=== PATIENT | female | born 1940 | race Caucasian/White ===

== ENCOUNTER 2016-12-09 23:53 | Inpatient (IN) ==
[2016-12-10] MEDS ORDERED: 0.9 % Sodium Chloride 1,000 ML ONE ×2 (00:11→01:18)
[2016-12-10] MEDS ORDERED: methylPREDNISolone 125 MG/2 ML VIAL IVP ONE (00:21)
[2016-12-10 00:27] LABS: Hemoglobin 9.8 g/dL (11.5-15.4)
[2016-12-10 00:29] LABS: Hematocrit 35.4 % (35.3-44.9); Mean Corpuscular HGB Conc 27.7 g/dL (31.6-35.5); Mean Corpuscular Hemoglobin 24.7 pg (28.0-33.3); Mean Corpuscular Volume 89.4 fL (83.0-100.0); Platelet Count 616 K/mcL (140-400); Red Blood Count 3.96 M/mcL (3.82-4.97)
[2016-12-10] MEDS ORDERED: Propofol 500 MG/50 ML INFUS..BTL ONE (00:32)
[2016-12-10 00:33] LABS: INR 1.2
[2016-12-10 00:36] LABS: Activated Partial Thrombo Time 28.9 Seconds (26.0-36.0)
[2016-12-10 00:39] LABS: BUN/Creatinine Ratio 21 (6-26); Blood Urea Nitrogen 22 mg/dL (7-20); Calcium 9.6 mg/dL (8.6-10.8); Carbon Dioxide 34 mEq/L (19-29); Chloride 95 mEq/L (98-109); Glucose 349 mg/dL (70-99); Osmolality,Calculated 303 (280-300); Potassium 5.5 mEq/L (3.5-4.5); Sodium 138 mEq/L (136-145); eGFR For African Americans > 60 (> 60); eGFR For Non-African Americans 52 (> 60)
[2016-12-10 00:42] LABS: Creatine Kinase < 7 Units/L (29-168)
[2016-12-10 00:50] LABS: Lymphocytes # 0.9 K/mcL (0.6-4.6); Monocytes # 2.7 K/mcL (0.0-1.3); Neutrophils # 26.5 K/mcL (1.6-8.9)
[2016-12-10 00:51] LABS: Hypochromasia Present (Not Present); Large Platelets Present (Not Present); Platelet Estimate Increased (Normal)
[2016-12-10 00:52] LABS: Anisocytosis 1+ (Not Present)
[2016-12-10 00:53] LABS: Polychromasia 1+ (Not Present)
--- NOTE | 2016-12-10 00:57 | Emergency Department Note ---
Disposition Clinical Impression: Respiratory acidosis, Atrial fibrillation with RVR Acute respiratory failure Qualifiers: Respiratory failure complication: hypoxia and hypercapnia Qualified Code(s): J96.01 - Acute respiratory failure with hypoxia Leukocytosis Qualifiers: Leukocytosis type: unspecified Qualified Code(s): D72.829 - Elevated white blood cell count, unspecified Pulmonary edema Qualifiers: Chronicity: acute Qualified Code(s): J81.0 - Acute pulmonary edema RLL pneumonia Qualifiers: Pneumonia type: due to unspecified organism Qualified Code(s): J18.1 - Lobar pneumonia, unspecified organism Disposition: Admitted As Inpatient Condition: Critical Time of Disposition: 03:56 General Adult HPI - General Chief complaint: ED Shortness of Breath/Dyspnea Stated complaint: unresponsive, shortness of breath Time Seen by Provider: 12/10/16 00:19 Source: EMS Limitations: altered mental status, age Nursing Notes Reviewed: Yes Vital Signs Reviewed: Yes - History of Present Illness HPI Narrative: Patient is a 76-year-old female who presents to [facility] ED via EMS from [facility]. Apparently patient was heard yelling out and then they found her to be 84% on room air. When EMS arrived, she was on 3-1/2 L saturating in the 80s. When patient arrived, patient was minimally responsive. She was found to be in atrial fibrillation with RVR with a rate in the 190s. Patient's oxygenation was switched over to [id number] and her oxygen saturation improved into the mid 90s. The patient could not comply with following directions, the decision was made to intubate to protect her airway. Following intubation, with patient's heart rate around 200 and borderline blood pressure, decision was made to cardiovert patient instead of giving any medical therapy that would lower her blood pressure. Patient was cardioverted at 200 J which converted her to sinus tachycardia in the 120s with frequent PVCs. 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: 0 Treatments Prior to Arrival: none - Related Data Home Medications Medication Instructions Recorded Confirmed Albuterol Sulfate [Ventolin Hfa] 2 puff IH Q6H PRN 11/09/16 11/20/16 Furosemide [Lasix] 40 mg PO DAILY 11/09/16 11/20/16 Ipratropium/Albuterol Neb [Duoneb] 3 ml IH Q6HR 11/09/16 11/20/16 Metoprolol [Lopressor] 12.5 mg PO BID 11/09/16 11/20/16 Potassium Chloride [K-Tab ER] 20 meq PO DAILY 11/09/16 11/20/16 Oxygen 2.5 l .ROUTE AD 11/20/16 11/20/16 Allergies Allergy/AdvReac Type Severity Reaction Status Date / Time Sulfa (Sulfonamide AdvReac Rash Verified 11/09/16 08:40 Antibiotics) Limitations: ROS unobtainable due to patients medical condition Past Medical History - Past Medical History Source: unable to obtain Medical history: Reports: atrial fibrillation, hypertension, other Surgical history: Reports: appendectomy, , cataract, cholecystectomy, hysterectomy, ANDREINA/BSO Psychiatric history: Reports: depression - Social History Smoking Status: Former smoker Smokeless Tobacco Status: No Alcohol use: Reports: none Drug use: Reports: none Physical Exam - General Limitations: altered mental status, age General appearance: obtunded, in distress - Head Head exam: atraumatic, normocephalic, normal inspection - Eye Eye exam: Present: normal appearance, PERRL, EOMI - ENT ENT exam: normal exam, normal oropharynx, mucous membranes moist - Neck Neck exam: Present: normal inspection, full ROM, trachea midline - Chest Chest inspection: Present: normal inspection, symmetric chest wall rise - Respiratory Respiratory exam: Present: other (Diffuse rhonchi in all lung dooley) - Cardiovascular Cardiovascular exam: Present: tachycardia, irregular rhythm - Abdominal Exam Abdominal exam: Present: soft, Non-Tender. Absent: tenderness, distention, guarding, rebound, rigidity - Extremities Exam Extremities exam: Present: normal inspection, full ROM. Absent: tenderness, pedal edema - Expanded Neurological Exam Coma Scale Eye Opening: To Voice Coma Scale Motor Response: Localizes to Pain Coma Scale Verbal Response: None Coma Scale Total: 9 - Psychiatric Psychiatric exam: Present: normal affect, normal mood - Skin Skin exam: Present: warm, dry, intact, normal color Course Course Narrative: Patient seen and examined. Resuscitation of the patient as described above. Critical care workup was initiated. Will admit to ICU. - Reevaluation(s) Reevaluation #1: Lab work shows leukocytosis of over 30,000. Chest x-ray seems to show right lower lobe pneumonia. We will go ahead and start vancomycin and Zosyn. Laboratory also shows mild hyperkalemia with potassium 5.5. Patient's ABG showed a pH of 7.33 with PCO2 of 68 and bicarbonate of 35.9. Patient is likely a chronic CO2 retainer. Initial lactate on ABG 2.2. Patient did become hypotensive after she was placed on a propofol drip for sedation. This was discontinued and then Precedex was started instead. Time: 02:16 Reevaluation #2: Patient becoming more and more alert and able to communicate with writing. With adequate oxygenation, it seems that her mental status has improved markedly. Dr. Meza spoke with Dr. Wagner who has accepted patient to the ICU. Time: 04:00 Vital Signs Temperature 0 F L 12/09/16 23:55 Pulse Rate 190 12/09/16 23:55 Respiratory Rate 32 12/09/16 23:55 Blood Pressure 118/65 12/09/16 23:55 O2 Sat by Pulse Oximetry 87 12/09/16 23:55 Temperature 99.4 F 12/10/16 04:35 Pulse Rate 69 12/10/16 06:00 Respiratory Rate 16 12/10/16 06:00 Blood Pressure 94/41 12/10/16 06:00 O2 Sat by Pulse Oximetry 100 12/10/16 06:00 Oxygen Delivery Oxygen Delivery Ventilator Procedures - Intubation Time out performed: Yes sedative: Etomidate Mg Given: 20 paralytic: Succinylcholine Mg Given: 100 Laryngoscope: fiber optic video scope ET Tube Size: 7.5 ET Tube Uncuffed: No Tube Secured Depth (cm): 22 Tube Secured Location: lips Tube Placement Confirmation: visualized tube passing through cords, equal breath sounds bilaterally, no breath sounds over epigastrium Patient Tolerated Procedure: well, no complications Intubation Complications: none Medical Decision Making - Medical Records Medical records reviewed: Yes I reviewed the patient's medical records. - Lab Data Lab results reviewed: Yes I reviewed the patient's lab results. Result diagrams: 12/10/16 06:18 12/10/16 00:16 Lab Results 12/10/16 12/10/16 12/10/16 Range/Units 00:16 00:16 00:16 WBC 30.1 H* (4.3-11.1) K/mcL RBC 3.96 (3.82-4.97) M/mcL Hgb 9.8 L (11.5-15.4) g/dL Hct 35.4 (35.3-44.9) % MCV 89.4 (83.0-100.0) fL MCH 24.7 L (28.0-33.3) pg MCHC 27.7 L (31.6-35.5) g/dL RDW 17.0 H (11.5-14.5) % Plt Count 616 H (140-400) K/mcL MPV 10.0 (9.4-12.4) fL Seg Neutrophils % 86.0 % Band Neutrophils % 2.0 (0-4) % Lymphocytes % 3.0 % Monocytes % 9.0 % Neutrophils # 26.5 H (1.6-8.9) K/mcL Lymphocytes # 0.9 (0.6-4.6) K/mcL Monocytes # 2.7 H (0.0-1.3) K/mcL Platelet Estimate Increased H (Normal) Large Platelets Present A (Not Present) Polychromasia 1+ A (Not Present) Hypochromasia Present A (Not Present) Anisocytosis 1+ A (Not Present) PT 13.0 H (9.4-12.1) Seconds INR 1.2 APTT 28.9 (26.0-36.0) Seconds ABG pH (7.32-7.45) pH Units ABG pCO2 (35-45) mmHg ABG pO2 (85-104) mmHg ABG HCO3 (21-27) mEQ/L ABG Total CO2 (20-26) mEq/L ABG O2 Saturation (95-98) % ABG Base Excess (-2.0 to 3.0) mEq/L Blood Gas Modality Inspired O2 % Sodium 138 (136-145) mEq/L Potassium 5.5 H (3.5-4.5) mEq/L Chloride 95 L (98-109) mEq/L Carbon Dioxide 34 H (19-29) mEq/L BUN 22 H (7-20) mg/dL Creatinine 1.03 (0.57-1.11) mg/dL Est GFR ( Amer) > 60 (> 60) Est GFR (Non-Af Amer) 52 L (> 60) BUN/Creatinine Ratio 21 (6-26) Glucose 349 H (70-99) mg/dL Calculated Osmolality 303 H (280-300) Lactic Acid (0.5-2.2) mmol/L Calcium 9.6 (8.6-10.8) mg/dL Creatine Kinase < 7 L (29-168) Units/L Troponin I (0-0.03) ng/mL B-Natriuretic Peptide (0-100) pg/mL 12/10/16 12/10/16 12/10/16 Range/Units 00:16 00:16 00:16 WBC (4.3-11.1) K/mcL RBC (3.82-4.97) M/mcL Hgb (11.5-15.4) g/dL Hct (35.3-44.9) % MCV (83.0-100.0) fL MCH (28.0-33.3) pg MCHC (31.6-35.5) g/dL RDW (11.5-14.5) % Plt Count (140-400) K/mcL MPV (9.4-12.4) fL Seg Neutrophils % % Band Neutrophils % (0-4) % Lymphocytes % % Monocytes % % Neutrophils # (1.6-8.9) K/mcL Lymphocytes # (0.6-4.6) K/mcL Monocytes # (0.0-1.3) K/mcL Platelet Estimate (Normal) Large Platelets (Not Present) Polychromasia (Not Present) Hypochromasia (Not Present) Anisocytosis (Not Present) PT (9.4-12.1) Seconds INR APTT (26.0-36.0) Seconds ABG pH (7.32-7.45) pH Units ABG pCO2 (35-45) mmHg ABG pO2 (85-104) mmHg ABG HCO3 (21-27) mEQ/L ABG Total CO2 (20-26) mEq/L ABG O2 Saturation (95-98) % ABG Base Excess (-2.0 to 3.0) mEq/L Blood Gas Modality Inspired O2 % Sodium (136-145) mEq/L Potassium (3.5-4.5) mEq/L Chloride (98-109) mEq/L Carbon Dioxide (19-29) mEq/L BUN (7-20) mg/dL Creatinine (0.57-1.11) mg/dL Est GFR ( Amer) (> 60) Est GFR (Non-Af Amer) (> 60) BUN/Creatinine Ratio (6-26) Glucose (70-99) mg/dL Calculated Osmolality (280-300) Lactic Acid 2.6 H (0.5-2.2) mmol/L Calcium (8.6-10.8) mg/dL Creatine Kinase (29-168) Units/L Troponin I 0.01 (0-0.03) ng/mL B-Natriuretic Peptide 272 H (0-100) pg/mL 12/10/16 12/10/16 Range/Units 01:20 01:30 WBC (4.3-11.1) K/mcL RBC (3.82-4.97) M/mcL Hgb (11.5-15.4) g/dL Hct (35.3-44.9) % MCV (83.0-100.0) fL MCH (28.0-33.3) pg MCHC (31.6-35.5) g/dL RDW (11.5-14.5) % Plt Count (140-400) K/mcL MPV (9.4-12.4) fL Seg Neutrophils % % Band Neutrophils % (0-4) % Lymphocytes % % Monocytes % % Neutrophils # (1.6-8.9) K/mcL Lymphocytes # (0.6-4.6) K/mcL Monocytes # (0.0-1.3) K/mcL Platelet Estimate (Normal) Large Platelets (Not Present) Polychromasia (Not Present) Hypochromasia (Not Present) Anisocytosis (Not Present) PT (9.4-12.1) Seconds INR APTT (26.0-36.0) Seconds ABG pH 7.33 (7.32-7.45) pH Units ABG pCO2 68 H (35-45) mmHg ABG pO2 115 H (85-104) mmHg ABG HCO3 35.9 H (21-27) mEQ/L ABG Total CO2 38.0 H (20-26) mEq/L ABG O2 Saturation 98 (95-98) % ABG Base Excess 8.6 H (-2.0 to 3.0) mEq/L Blood Gas Modality ASSIST CONTROL Inspired O2 60 % Sodium (136-145) mEq/L Potassium (3.5-4.5) mEq/L Chloride (98-109) mEq/L Carbon Dioxide (19-29) mEq/L BUN (7-20) mg/dL Creatinine (0.57-1.11) mg/dL Est GFR ( Amer) (> 60) Est GFR (Non-Af Amer) (> 60) BUN/Creatinine Ratio (6-26) Glucose (70-99) mg/dL Calculated Osmolality (280-300) Lactic Acid 3.1 H (0.5-2.2) mmol/L Calcium (8.6-10.8) mg/dL Creatine Kinase (29-168) Units/L Troponin I (0-0.03) ng/mL B-Natriuretic Peptide (0-100) pg/mL - Radiology Data Radiology results reviewed: Yes I reviewed the patient's radiology results. Chest X-Ray 12/10/16 00:21 IMPRESSION: Low-lying endotracheal tube approximate 1 cm above the kenia. Recommend retracting approximately 3 cm. Bilateral interstitial opacities may indicate mild edema, pneumonitis or chronic changes. Hazy opacity projects over right lung base may represent lung consolidation or consistent with patient's history of soft tissue mass. D/ / Wilfred Ivory / Wilfred Ivory Interpreting Provider: Wilfred Ivory - EKG Data EKG #1 EKG attestation: Yes I reviewed and interpreted this EKG. EKG results narrative: EKG done at 0000 shows atrial fibrillation with RVR with a rate of [address] elevation noted. There are signs of diffuse ST depression though the baseline is wandering. Normal axis. Post cardioversion EKG done at 00:20 shows sinus tachycardia with a rate of [address] elevation or depression. There are frequent PVCs. Attestation Statement - Attestation Attestation: I, Bryson Meza, examined this patient and my medical decision-making was reviewed with the MACHINE COMPOSITOR/PA/Advanced Practice Nurse/Resident Physician. I agree with the documented findings, disposition and treatment plan as described except to the extent set forth below. 76-year-old female brought in by EMS to the emergency department in respiratory distress. Patient was apparently at the snf, called out distress and was found to have an O2 saturation in the 80s. EMS placed patient on Ventimask with breathing treatment which mildly improved her O2 saturation to 92%. Patient has a history of COPD and atrial fibrillation. Patient's heart rate on arrival was close to 200 and she was in A. fib with RVR. Patient unable to give a history regarding her case and presentation secondary to her respiratory distress. She is minimally alert, not protecting her airway. Lungs had crackles and rales in the bilateral lung bases. She had poor air movement during auscultation. Patient was intubated to protect her airway. Patient was not likely perfusing her brain well secondary to the A. fib with RVR. Patient was cardioverted secondary to her distress which reverted her rhythm to a sinus tachycardia. Patient is DNR CCA however she does not have orders prohibiting intubation. Patient never lost her pulse. Patient was started on propofol emergency department however this made her hypotensive. He should not was then transferred to [facility]. She continued to be hypotensive. Patient was given a central venous catheter in the right IJ as this was an emergent procedure secondary to hypotension. Patient admitted to the ICU gui developer for further care.
--- NOTE | 2016-12-10 03:38 | Internal Med History&Physical ---
<Sudhakar Watkins - Last Filed: 12/10/16 03:38> Date of Encounter: 12/10/16 Time of Encounter: 03:38 Internal Medicine - H&P: HPI History of present illness: Ms. Canela is a 76 year old female Past Med Surg Social Fam HX - Past Medical History Medical history: atrial fibrillation, hypertension, other Psychiatric history: depression - Past Surgical History Surgical History: appendectomy, , cataract, cholecystectomy, hysterectomy, ANDREINA/BSO - Social History Smoking Status: Former smoker Smokeless Tobacco Status: No Alcohol use: none Drug use: none - Family History Father Living Status: Hx Family Cardiac Disorders: Yes Hx Family Neuromuscular Disorders: Yes Internal Medicine - H&P: Meds Albuterol Sulfate [Ventolin Hfa] 2 puff IH Q6H PRN 11/09/16 [History] Furosemide [Lasix] 40 mg PO DAILY 11/09/16 [History] Ipratropium/Albuterol Neb [Duoneb] 3 ml IH Q6HR 11/09/16 [History] Metoprolol [Lopressor] 12.5 mg PO BID 11/09/16 [History] Potassium Chloride [K-Tab ER] 20 meq PO DAILY 11/09/16 [History] Oxygen 2.5 l .ROUTE AD 11/20/16 [History] Allergies Sulfa (Sulfonamide Antibiotics) Adverse Reaction (Verified 11/09/16 08:40) Rash All Systems PM: A 10-system review of systems was performed and is negative for pertinent findings except as documented above in the HPI. - Constitutional Vitals: Temp Pulse Resp BP Pulse Ox 0 F L 190 16 118/65 99 12/09/16 23:55 12/09/16 23:55 12/10/16 00:50 12/09/16 23:55 12/10/16 00:50 Internal Med - H&P Results - Labs CBC & Chem 7: 12/10/16 00:16 12/10/16 00:16 Labs: Short CBC 12/10/16 Range/Units 00:16 WBC 30.1 H* (4.3-11.1) K/mcL Hgb 9.8 L (11.5-15.4) g/dL Hct 35.4 (35.3-44.9) % Plt Count 616 H (140-400) K/mcL Neutrophils # 26.5 H (1.6-8.9) K/mcL BMP 12/10/16 00:16 Sodium 138 Potassium 5.5 H Chloride 95 L Carbon Dioxide 34 H BUN 22 H Creatinine 1.03 Glucose 349 H Calcium 9.6 Cardiac Enzymes 12/10/16 Range/Units 00:16 Troponin I 0.01 (0-0.03) ng/mL - Impressions ITS Impressions Chest X-Ray 12/10/16 00:21 IMPRESSION: Low-lying endotracheal tube approximate 1 cm above the kenia. Recommend retracting approximately 3 cm. Bilateral interstitial opacities may indicate mild edema, pneumonitis or chronic changes. Hazy opacity projects over right lung base may represent lung consolidation or consistent with patient's history of soft tissue mass. D/ / Wilfred Ivory / Wilfred Ivory Interpreting Provider: Wilfred Ivory <Keren Zhu - Last Filed: 12/10/16 04:28> Date of Encounter: 12/10/16 Internal Medicine - H&P: HPI History of present illness: Ms. Canela is a 76 year old female All Systems PM: A 10-system review of systems was performed and is negative for pertinent findings except as documented above in the HPI. - Constitutional Vitals: Temp Pulse Resp BP Pulse Ox 98.3 F 190 20 108/66 98 12/10/16 04:14 12/09/16 23:55 12/10/16 04:14 12/10/16 04:14 12/10/16 03:39 Internal Med - H&P Results - Labs CBC & Chem 7: 12/10/16 00:16 12/10/16 00:16 - Attending Attestation I examined this patient and my medical decision-making was reviewed with the Resident Physician. I agree with the documented findings, disposition and treatment plan as described except to the extent set forth below. Ms Dana Pérez is a 76 yo female who presents from [facility] unresponsive. Prior to presentation, she was reported to have cried out loud and subsequently became unresponsive. She was brought to the hospital where she was emergently intubated in the ED for airway protection. She became hypotensive after intubation and after propofol was used. This was discontinued and substituted with Precedex. On arrival she was also found to have in AFib RVR with rate in 180s and responded to cardioversion. She is DNRCCA on her paper work. Her SNF med list or medical hx did not accompany her SNF paperwork EKG reviewed by self with rate 182, AFib rvr CXR reviewed IMPRESSION: Low-lying endotracheal tube approximate 1 cm above the kenia. Recommend retracting approximately 3 cm. Bilateral interstitial opacities may indicate mild edema, pneumonitis or chronic changes. Hazy opacity projects over right lung base may represent lung consolidation or consistent with patient's history of soft tissue mass. ROS 14 point review of systems reviewed as best as possible given presentation. Pertinent positive or negative as per HPI or otherwise reviewed as negative General -sedated Heart - Sinus tachy. RRR. S1 and S2 present. No added HS/murmurs appreciated. No elevated JVD appreciated. No calf swellings/erythema Lung - Adequate air entry b/l, Coarse ventilator BS GI - Soft, non-tender. No hepatosplenomegaly/ascites. BS+ - No CVA/suprapubic tenderness or palpable bladder distension Skin - Intact. No rash/petechiae/ecchymosis. Warm extremities Acute respiratory failure - intubated,sedated on precedex - treat possible PNA, empiric therapy - duonebs - check TTE given reported hx of CHF. Hold diuretics for now given Hypotension - ICU consult and SBT as appropriate in the next day or so Hypotensive Shock - uncertain etiology, probably due to meds after intubation ? - continue empiric antibiotics - pressor to maintain MAP>65 - I/Os AFib rvr - s/p cardioversion PPI Lovenox ppx
[2016-12-10] MEDS ORDERED: Naloxone 0.4 MG/ML INJ IVP PRN (03:39)
--- NOTE | 2016-12-10 03:39 | Procedure Note ---
Date of procedure: 12/10/16 Pre-op diagnosis: hypotension Post-op diagnosis: same Procedure: Date: 12/10/16 Time: 03:00 Indication: hypotension Resident: Dr. Watkins Attending: Dr. Susana Smith time-out was completed verifying correct patient, procedure, site, positioning , and special equipment if applicable. The patient was placed in a dependent position appropriate for central line placement based on the vein to be cannulated. The patients right neck was prepped and draped in sterile fashion. 1% Lidocaine was used to anesthetize the surrounding skin area. A 16cm triple lumen catheter was introduced into the the internal jugular vein using the Seldinger technique and under ultrasound guidance. The catheter was threaded smoothly over the guide wire and appropriate blood return was obtained. Each lumen of the catheter was evacuated of air and flushed with sterile saline. The catheter was then sutured in place to the skin and a sterile dressing applied. Estimated Blood Loss: 3cc The patient tolerated the procedure well and there were no complications. Post procedure CXR showed good placement with no pneumothorax. Condition: stable Disposition: ICU
[2016-12-10] MEDS ORDERED: Ipratropium/Albuterol Neb 3 ML IH PRN (03:42)
[2016-12-10 03:56] LABS: ABG Base Excess 8.6 mEq/L (-2.0 to 3.0); ABG HCO3 35.9 mEQ/L (21-27); ABG Oxygen Saturation 98 % (95-98); ABG PCO2 68 mmHg (35-45); ABG PH 7.33 pH Units (7.32-7.45); ABG PO2 115 mmHg (85-104); Blood Gas FiO2 60 %
[2016-12-10] MEDS: Norepinephrine 4 MG in D5% in Water 250 ML IVC SCH ×2 (04:27→10:49)
[2016-12-10] MEDS ORDERED: Vancomycin 2,000 MG in D5% in Water 500 ML IVPB ONE (05:00)
[2016-12-10] MEDS: Dexmedetomidine HCl 400 MCG/100 ML MLS IVC SCH ×2 (05:27→08:01)
[2016-12-10] MEDS ORDERED: Dextrose Gel 15 GM PO PRN ×2 (05:28)
[2016-12-10] MEDS ORDERED: D5% in Water 1,000 ML IVC PRN (05:28)
[2016-12-10] MEDS: Azithromycin 500 MG in D5% in Water 250 ML IVPB SCH (05:32)
[2016-12-10] MEDS: Pantoprazole 40 MG VIAL IVPB SCH (05:32)
[2016-12-10] MEDS: *HR* Enoxaparin 40 MG/0.4 ML SYRINGE SQ SCH (05:32)
[2016-12-10] MEDS: 0.9 % Sodium Chloride 1,000 ML IVC SCH ×3 (05:33→23:23)
[2016-12-10] MEDS: Ipratropium/Albuterol Neb 3 ML IH SCH ×4 (06:16→21:29)
[2016-12-10] MEDS: Insulin LISPRO 300 UNITS/3 ML VIAL SQ SCH ×6 (06:22→23:19)
[2016-12-10 06:36] LABS: Hematocrit 29.3 % (35.3-44.9); Hemoglobin 8.2 g/dL (11.5-15.4); Mean Corpuscular Hemoglobin 24.6 pg (28.0-33.3); Mean Corpuscular Volume 87.7 fL (83.0-100.0); Mean Platelet Volume 10.2 fL (9.4-12.4); Platelet Count 503 K/mcL (140-400); Red Blood Count 3.34 M/mcL (3.82-4.97); Red Cell Distribution Width 16.8 % (11.5-14.5)
--- NOTE | 2016-12-10 06:50 | Pulmonology Consult Note ---
<VenkatAri brewster M - Last Filed: 12/10/16 12:41> Date of Encounter: 12/10/16 Medications and Allergies Albuterol Sulfate [Ventolin Hfa] 2 puff IH Q6H PRN 11/09/16 [History] Furosemide [Lasix] 40 mg PO DAILY 11/09/16 [History] Ipratropium/Albuterol Neb [Duoneb] 3 ml IH Q6HR 11/09/16 [History] Metoprolol [Lopressor] 12.5 mg PO BID 11/09/16 [History] Potassium Chloride [K-Tab ER] 20 meq PO DAILY 11/09/16 [History] Ferrous Sulfate [Iron] 325 mg PO DAILY 12/10/16 [History] Nystatin POWDER [Nystop] 1 appl TP DAILY 12/10/16 [History] Allergies Sulfa (Sulfonamide Antibiotics) Adverse Reaction (Verified 12/10/16 09:02) Rash All Systems: A 10-system review of systems was performed and is negative for pertinent findings except as documented above in the HPI. Physical Examination Vital Signs: Vital Signs, Last 4 Hours Temp Pulse Resp BP Pulse Ox 12/10/16 12:17 97.6 F 12/10/16 11:13 16 100 12/10/16 11:12 45 16 90/48 100 12/10/16 10:00 45 16 90/48 100 12/10/16 09:44 16 91/50 100 12/10/16 09:03 61 16 117/63 100 12/10/16 09:00 52 16 94/57 100 Ventilator Settings Ventilator Settings: Ventilator Settings, Last 8 Hours Ventilator Mode VC+ Ventilator Mode VC+ Ventilator Mode VC+ Ventilator Mode VC+ Ventilator Mode VC+ Ventilator Tidal Volume 450 Setting Ventilator Tidal Volume 450 Setting Ventilator Tidal Volume 450 Setting Ventilator Tidal Volume 450 Setting Ventilator Tidal Volume 450 Setting Ventilator Respiratory Rate 16 Setting Ventilator Respiratory Rate 16 Setting Ventilator Respiratory Rate 16 Setting Ventilator Respiratory Rate 16 Setting Ventilator Respiratory Rate 16 Setting Actual Respiratory Rate 16 Actual Respiratory Rate 16 Actual Respiratory Rate 16 Actual Respiratory Rate 16 Positive End Expiratory 5 Pressure Positive End Expiratory 5 Pressure Positive End Expiratory 5 Pressure Positive End Expiratory 5 Pressure Positive End Expiratory 5 Pressure Peak Inspiratory Airway 27 Pressure Peak Inspiratory Airway 30 Pressure Peak Inspiratory Airway 32 Pressure Peak Inspiratory Airway 32 Pressure Results - Laboratory Findings CBC and BMP: 12/10/16 06:18 12/10/16 00:16 ABG ABG pH 7.42 pH Units (7.32-7.45) 12/10/16 09:30 ABG pCO2 43 mmHg (35-45) 12/10/16 09:30 ABG pO2 72 mmHg (85-104) L 12/10/16 09:30 ABG O2 Saturation 95 % (95-98) 12/10/16 09:30 PT/INR, D-dimer PT 13.0 Seconds (9.4-12.1) H 12/10/16 00:16 Abnormal lab findings: Abnormal lab results WBC 35.4 K/mcL (4.3-11.1) H* 12/10/16 06:18 RBC 3.34 M/mcL (3.82-4.97) L 12/10/16 06:18 Hgb 8.2 g/dL (11.5-15.4) L D 12/10/16 06:18 Hct 29.3 % (35.3-44.9) L 12/10/16 06:18 MCH 24.6 pg (28.0-33.3) L 12/10/16 06:18 MCHC 28.0 g/dL (31.6-35.5) L 12/10/16 06:18 RDW 16.8 % (11.5-14.5) H 12/10/16 06:18 Plt Count 503 K/mcL (140-400) H 12/10/16 06:18 Neutrophils # 26.5 K/mcL (1.6-8.9) H 12/10/16 00:16 Monocytes # 2.7 K/mcL (0.0-1.3) H 12/10/16 00:16 Platelet Estimate Increased (Normal) H 12/10/16 00:16 Large Platelets Present (Not Present) A 12/10/16 00:16 Polychromasia 1+ (Not Present) A 12/10/16 00:16 Hypochromasia Present (Not Present) A 12/10/16 00:16 Anisocytosis 1+ (Not Present) A 12/10/16 00:16 PT 13.0 Seconds (9.4-12.1) H 12/10/16 00:16 ABG pO2 72 mmHg (85-104) L 12/10/16 09:30 ABG HCO3 27.9 mEQ/L (21-27) H 12/10/16 09:30 ABG Total CO2 29.2 mEq/L (20-26) H 12/10/16 09:30 ABG Base Excess 3.1 mEq/L (-2.0 to 3.0) H 12/10/16 09:30 Potassium 5.5 mEq/L (3.5-4.5) H 12/10/16 00:16 Chloride 95 mEq/L (98-109) L 12/10/16 00:16 Carbon Dioxide 34 mEq/L (19-29) H 12/10/16 00:16 BUN 22 mg/dL (7-20) H 12/10/16 00:16 Est GFR (Non-Af Amer) 52 (> 60) L 12/10/16 00:16 Glucose 349 mg/dL (70-99) H 12/10/16 00:16 POC Glucose 249 (58-89) H 12/10/16 04:33 Calculated Osmolality 303 (280-300) H 12/10/16 00:16 Creatine Kinase < 7 Units/L (29-168) L 12/10/16 00:16 B-Natriuretic Peptide 272 pg/mL (0-100) H 12/10/16 00:16 Urine Clarity Turbid (Clear) A 12/10/16 09:23 Ur Specific [place] 1.027 (1.010-1.025) H 12/10/16 09:23 Urine Protein 100 mg/dL (Neg-Trace) H 12/10/16 09:23 Urine Ketones Trace mg/dL (Negative) H 12/10/16 09:23 Urine Blood Small (Negative) H 12/10/16 09:23 Urine Bilirubin Small (Negative) H 12/10/16 09:23 Ur Leukocyte Esterase Large (Negative) H 12/10/16 09:23 Urine Microscopic RBC 5-15 per hpf (0-3) H 12/10/16 09:23 Urine Microscopic WBC 50-100 per hpf (0-3) H 12/10/16 09:23 Ur Squamous Epith Cells Moderate per lpf (None-Few) H 12/10/16 09:23 Urine Bacteria Many per hpf (None-Few) H 12/10/16 09:23 Ur Culture Indicated? YES (NO) A 12/10/16 09:23 - Microbiology Findings Microbiology Findings: Microbiology, Last 48 Hours 12/10/16 09:30 Sputum Culture - Preliminary Sputum - Clinical Findings Intake & Output: Intake & Output 12/09/16 12/10/16 12/10/16 23:59 07:59 15:59 Intake Total 330 / 2330 3040 / 3040 Output Total 0 / 0 Balance 330 / 2330 3025 / 3025 Weight 89.1 kg 91.6 kg Consult Discharge Plan - Plan Referrals: NONE,PCP [Primary Care Provider] - - Attending Attestation I examined this patient and my medical decision-making was reviewed with the Resident Physician. I agree with the documented findings, disposition and treatment plan as described except to the extent set forth below. Patient seen and examined. Labs, radiology, chart personally reviewed. Agree with resident's history and physical, assessment, plan with following comments: [facility] Patient is not follows commands, patient is on sedation Precedex and due to the heart rate and bradycardia we will stop it and change it to fentanyl for pain control and vent synchrony. Pulmonary: Acceptable oxygenation and ventilation. Patient was intubated for mental status change and being unresponsive. Vent mode was changed to VC plus and lowered FiO2. Whenever patient is off vasopressor then we will do spontaneous breathing trial and possible extubation. Patient has evidence of pneumonia which is hospital-acquired most likely and she is covered with broad- spectrum antibiotics. Reviewed previous CT chest which showed evidence of parenchymal and pleural fluid abnormalities. Cardiovascular: Unstable. Patient is on vasopressor most likely septic shock. GI: Nutrition per dietary and GI prophylaxis per routine Heme: DVT prophylaxis per routine ID: Continue antibiotics and plan to de-escalation and follow-up on blood culture. She has septic shock and her skin cold to touch with poor capillary perfusion. Follow-up on the lactic acid level. Renal; urine out put and renal funtion reviewed Endorcine: blood glucose is monitored Lines: all lines checked and no evidence of infections Skin: skin care to prevent pressure ulcers per nursing routine care. Patient has a tumor in the back and wound care as well as surgery is being consulted. Overall prognosis as he relates poor and for that reason palliative care was consulted. When family is available we will update. I spent 40 min of Critical Care time with this patient. It involved decision making of high complexity to assess, manipulate, and support vital organ system failure and/or to prevent further life threatening deterioration of the patient' s condition. The time involved in the performance of separately reportable procedures was not counted toward critical care time. <Aleksandr Kumar - Last Filed: 12/10/16 12:51> Date of Encounter: 12/10/16 Time of Encounter: 06:49 Assessment and Plan (1) Respiratory failure with hypoxia and hypercapnia Current Visit: Yes Status: Acute This patient is currently intubated and under sedation with fentanyl. We will do a repeat arterial blood gas and see if this is improved. I suspect that some of this respiratory failure is due to a pneumonia of her right lower lobe. Qualifiers: Chronicity: acute Qualified Code(s): J96.01 - Acute respiratory failure with hypoxia; J96.02 - Acute respiratory failure with hypercapnia (2) RLL pneumonia Current Visit: Yes Status: Acute Patient has what appears to be a right lower lobe pneumonia versus mass on chest x-ray. She does have a leukocytosis of 35.4, severe hypotension that is managed on Levophed. At this point, we will treat her for a hospital-acquired pneumonia. She was started on azithromycin, cefepime, and vancomycin in the emergency department. For anaerobic coverage, we discontinued cefepime and added Zosyn. We have obtained sputum cultures for Gram stain. Qualifiers: Pneumonia type: due to unspecified organism Qualified Code(s): J18.1 - Lobar pneumonia, unspecified organism (3) Atrial fibrillation with RVR Current Visit: Yes Status: Acute Patient was synchronized cardioverted in the emergency department last night. There is no known history of atrial fibrillation in this patient. Patient is currently bradycardic but in sinus rhythm. I suspect that the new bradycardia could be due to depressive. We are discontinuing the present accident starting off and on for sedation. We will continue monitoring her heart rate. She is not on anything for rate control. (4) Leukocytosis Current Visit: Yes Status: Acute This patient is a white count of 35.4. We have obtained blood cultures, Qualifiers: Leukocytosis type: unspecified Qualified Code(s): D72.829 - Elevated white blood cell count, unspecified (5) Malignant melanoma of lower back Current Visit: Yes Status: Acute Patient was recently diagnosed with malignant melanoma of the lower back. Dr. Meehan is the general surgeon following this patient. It was decided that radiation oncology would treat this rather than surgery. However, this mass is draining, and his malodorous. I consulted both Dr. Meehan the general surgeon as well as radiation oncology for management of this. 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 Radiation oncology was consulted today. (7) DVT prophylaxis Current Visit: Yes Status: Acute Enoxaparin 40 mg daily History of Present Illness Consult date: 12/10/16 Requesting physician: Bryson Meza Reason for consult: hypoxemia Chief complaint: Acute hypoxic respiratory failure, pneumonia, on pressors History of present illness: This is a 76-year-old female with a previous medical history of melanoma that is being worked up by oncology. She presented to the emergency department yesterday after having an episode of shortness of breath in the senior living facility. She was heard saying "somebody help me". Her pulse ox was at 84% on room air on the arrival by EMS. She was placed on 3-1/2 L of oxygen on arrival to the emergency department and she was satting in the mid 90s. At that time, the patient was very uncooperative and in order to protect her airway, she was intubated. She was also hypotensive, chest x-ray showed a possible right lower lobe pneumonia. She was placed on azithromycin, cefepime, and vancomycin at that time. She was also given 2 L of normal saline. She was admitted to the ICU for the management after her episode of acute hypoxemic hypercapnic respiratory failure as well as management of her pressors as she is on Levophed to maintain a map greater than 65, and pneumonia. Past Med Surg Social Fam HX - Past Medical History Medical history: atrial fibrillation, hypertension, other Psychiatric history: depression - Past Surgical History Surgical History: appendectomy, , cataract, cholecystectomy, hysterectomy, ANDREINA/BSO - Social History Smoking Status: Former smoker Smokeless Tobacco Status: No Alcohol use: none Drug use: none - Family History Father Living Status: Hx Family Cardiac Disorders: Yes Hx Family Neuromuscular Disorders: Yes All Systems: A 10-system review of systems was performed and is negative for pertinent findings except as documented above in the HPI. Physical Examination Vital Signs: Vital Signs, Last 4 Hours Temp Pulse Resp BP Pulse Ox 12/10/16 06:00 69 16 94/41 100 12/10/16 05:00 73 17 99/74 100 12/10/16 04:35 99.4 F 82 16 111/81 100 12/10/16 04:30 100 12/10/16 04:14 98.3 F 20 108/66 12/10/16 04:00 68 20 107/65 99 General appearance: other (76-year-old female On the ventilator, unresponsive.) Eyes: nonicteric ENT: oropharynx moist Neck: supple Effort: other (Assist-control ventilator) Inspection: normal Auscultation: right: diminished breath sounds Cardiovascular: other (Telemetry: Sinus bradycardia with a rate of 48) Gastrointestinal: normoactive bowel sounds, soft, non-tender Integumentary: other (There is a fungating, serosanguineous draining, malodorous mass that is approximately 5 x 5 cm on the lower thoracic spine. There is no surrounding cellulitis.) Extremities: no cyanosis, no edema, pulses normal, cool pupils equal and round, unable to assess due to mental status other (Unable to access) Ventilator Settings Ventilator Settings: Ventilator Settings, Last 8 Hours Ventilator Mode A/C Ventilator Mode A/C Ventilator Tidal Volume 450 Setting Ventilator Tidal Volume 450 Setting Ventilator Respiratory Rate 16 Setting Ventilator Respiratory Rate 16 Setting Actual Respiratory Rate 16 Actual Respiratory Rate 16 Positive End Expiratory 5 Pressure Positive End Expiratory 5 Pressure Peak Inspiratory Airway 32 Pressure Results - Laboratory Findings CBC and BMP: 12/10/16 06:18 12/10/16 00:16 ABG ABG pH 7.33 pH Units (7.32-7.45) 12/10/16 01:20 ABG pCO2 68 mmHg (35-45) H 12/10/16 01:20 ABG pO2 115 mmHg (85-104) H 12/10/16 01:20 ABG O2 Saturation 98 % (95-98) 12/10/16 01:20 PT/INR, D-dimer PT 13.0 Seconds (9.4-12.1) H 12/10/16 00:16 Abnormal lab findings: Abnormal lab results WBC 30.1 K/mcL (4.3-11.1) H* 12/10/16 00:16 Hgb 9.8 g/dL (11.5-15.4) L 12/10/16 00:16 MCH 24.7 pg (28.0-33.3) L 12/10/16 00:16 MCHC 27.7 g/dL (31.6-35.5) L 12/10/16 00:16 RDW 17.0 % (11.5-14.5) H 12/10/16 00:16 Plt Count 616 K/mcL (140-400) H 12/10/16 00:16 Neutrophils # 26.5 K/mcL (1.6-8.9) H 12/10/16 00:16 Monocytes # 2.7 K/mcL (0.0-1.3) H 12/10/16 00:16 Platelet Estimate Increased (Normal) H 12/10/16 00:16 Large Platelets Present (Not Present) A 12/10/16 00:16 Polychromasia 1+ (Not Present) A 12/10/16 00:16 Hypochromasia Present (Not Present) A 12/10/16 00:16 Anisocytosis 1+ (Not Present) A 12/10/16 00:16 PT 13.0 Seconds (9.4-12.1) H 12/10/16 00:16 ABG pCO2 68 mmHg (35-45) H 12/10/16 01:20 ABG pO2 115 mmHg (85-104) H 12/10/16 01:20 ABG HCO3 35.9 mEQ/L (21-27) H 12/10/16 01:20 ABG Total CO2 38.0 mEq/L (20-26) H 12/10/16 01:20 ABG Base Excess 8.6 mEq/L (-2.0 to 3.0) H 12/10/16 01:20 Potassium 5.5 mEq/L (3.5-4.5) H 12/10/16 00:16 Chloride 95 mEq/L (98-109) L 12/10/16 00:16 Carbon Dioxide 34 mEq/L (19-29) H 12/10/16 00:16 BUN 22 mg/dL (7-20) H 12/10/16 00:16 Est GFR (Non-Af Amer) 52 (> 60) L 12/10/16 00:16 Glucose 349 mg/dL (70-99) H 12/10/16 00:16 POC Glucose 249 (58-89) H 12/10/16 04:33 Calculated Osmolality 303 (280-300) H 12/10/16 00:16 Creatine Kinase < 7 Units/L (29-168) L 12/10/16 00:16 B-Natriuretic Peptide 272 pg/mL (0-100) H 12/10/16 00:16 - Diagnostic Findings Chest x-ray: report reviewed, image reviewed CT scan - chest: report reviewed, image reviewed - Clinical Findings Intake & Output: Intake & Output 12/09/16 12/09/16 12/10/16 15:59 23:59 07:59 Intake Total 2079 Output Total 0 / 0 Balance 2079 Weight 89.1 kg
[2016-12-10] MEDS ORDERED: 0.9 % Sodium Chloride 1,000 ML IVC ONE ×4 (07:49→14:40)
[2016-12-10 09:32] LABS: Bilirubin,Urine Small (Negative); Blood,Urine Small (Negative); Clarity,Urine Turbid (Clear); Color,Urine Dark Yellow (Yellow); Glucose,Urine (UA) Normal (Normal); Ketones,Urine Trace mg/dL (Negative); Leukocyte Esterase,Urine Large (Negative); Nitrite,Urine Negative (Negative); PH,Urine 5.5 pH Units (5.0-8.0); Protein,Urine 100 mg/dL (Neg-Trace); Specific Gravity,Urine 1.027 (1.010-1.025); Urobilinogen,Urine Normal (Normal)
[2016-12-10 09:34] LABS: Bacteria,Urine Many per hpf (None-Few); Hyaline Casts,Urine None Seen per lpf (None-Few); Squamous Epithelial Cell,Urine Moderate per lpf (None-Few); WBC,Urine 50-100 per hpf (0-3)
[2016-12-10 09:38] LABS: ABG Base Excess 3.1 mEq/L (-2.0 to 3.0); ABG HCO3 27.9 mEQ/L (21-27); ABG Oxygen Saturation 95 % (95-98); ABG PCO2 43 mmHg (35-45); ABG PH 7.42 pH Units (7.32-7.45); ABG PO2 72 mmHg (85-104); ABG TCO2 29.2 mEq/L (20-26)
[2016-12-10 09:39] LABS: Blood Gas FiO2 35 %
[2016-12-10] MEDS: Chlorhexidine Rinse 15 ML MOUTHWASH MM SCH ×2 (09:39→19:49)
[2016-12-10] MEDS: Piperacillin/Tazobactam 3.375 GM in D5% in Water (Mini-Bag+) 100 ML IVPB SCH ×3 (09:40→23:22)
[2016-12-10] MEDS ORDERED: *HR* FentaNYL (PF) 100 MCG/2 ML VIAL IVP PRN (10:47)
[2016-12-10] MEDS ORDERED: Acetaminophen 325 MG TABLET PO PRN (10:49)
[2016-12-10] MEDS ORDERED: Cefepime HCl 2,000 MG in D5% in Water (Mini-Bag+) 100 ML IVPB SCH (11:00)
[2016-12-10] MEDS ORDERED: FentaNYL (PF) 1,000 MCG in 0.9 % Sodium Chloride 80 ML IVC SCH (11:30)
--- NOTE | 2016-12-10 11:49 | General Surgery Consult Note ---
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 Current Visit: No Status: Acute See plan of care above Qualifiers: Laterality: unspecified laterality Qualified Code(s): C78.00 - Secondary malignant neoplasm of unspecified lung (3) 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 Current Visit: No Status: Acute See plan of care above (4) Respiratory failure with hypoxia and hypercapnia Current Visit: Yes Status: Acute Managed by critical care Qualifiers: Chronicity: acute Qualified Code(s): J96.01 - Acute respiratory failure with hypoxia; J96.02 - Acute respiratory failure with hypercapnia (5) RLL pneumonia Current Visit: Yes Status: Acute Patient producing purulent sputum On vanco, zosyn, azithromycin Qualifiers: Pneumonia type: due to unspecified organism Qualified Code(s): J18.1 - Lobar pneumonia, unspecified organism (6) Leukocytosis Current Visit: Yes Status: Acute Most likely source is pneumonia Also received steroids Qualifiers: Leukocytosis type: unspecified Qualified Code(s): D72.829 - Elevated white blood cell count, unspecified History of Present Illness Consult date: 12/10/16 Reason for consult: other (fungating melanoma) History of present illness: Patient is intubated so history is obtained from chart review. Dana Canela is a 76 yo female with known melanoma who has been seen in the wound care clinic previously with a large fungating melanoma on her medial back. She presented to [facility] via EMS from a SNF. She was heard yelling for help , and pulse ox was 84% on room air. She was minimally responsive by the time EMS arrived, with RVR rate approaching 200. She was intubated on arrival to [facility] and cardioverted to sinus tachycardia. Regarding the melanoma, it was present for years and the patient had denied symptoms from it. Diagnosis of melanoma was confirmed during her first visit to wound care by incisional biopsy performed by Dr. Oconnor on 11/09/16. She has since been seen by oncology (Dr. Tim). Across numerous studies, lesions concerning for metastasis have been seen in the liver, lungs, and adrenal glands. Biopsy of a liver lesion on 11/29/16 confirmed metastatic melanoma. The patient was discussed at tumor board, where it was determined there was no role for surgery in this case. There was discussion of offering radiation therapy if the mass began to cause her problems. The patient is DNRCC-Arrest. Past Med Surg Social Fam HX - Past Medical History Medical history: atrial fibrillation, hypertension, other Psychiatric history: depression - Past Surgical History Surgical History: appendectomy, , cataract, cholecystectomy, hysterectomy, ANDREINA/BSO - Social History Smoking Status: Former smoker Smokeless Tobacco Status: No Alcohol use: none Drug use: none - Family History Father Living Status: Hx Family Cardiac Disorders: Yes Hx Family Neuromuscular Disorders: Yes Medications and Allergies Albuterol Sulfate [Ventolin Hfa] 2 puff IH Q6H PRN 11/09/16 [History] Furosemide [Lasix] 40 mg PO DAILY 11/09/16 [History] Ipratropium/Albuterol Neb [Duoneb] 3 ml IH Q6HR 11/09/16 [History] Metoprolol [Lopressor] 12.5 mg PO BID 11/09/16 [History] Potassium Chloride [K-Tab ER] 20 meq PO DAILY 11/09/16 [History] Ferrous Sulfate [Iron] 325 mg PO DAILY 12/10/16 [History] Nystatin POWDER [Nystop] 1 appl TP DAILY 12/10/16 [History] Allergies Sulfa (Sulfonamide Antibiotics) Adverse Reaction (Verified 12/10/16 09:02) Rash Review of Systems ROS unobtainable: due to endotracheal tube All systems PM: A 10-system review of systems was performed and is negative for pertinent findings except as documented above in the HPI. General Surgery Exam Initial Vital Signs Temp Pulse Resp BP Pulse Ox 0 F L 190 32 118/65 87 12/09/16 23:55 12/09/16 23:55 12/09/16 23:55 12/09/16 23:55 12/09/16 23:55 - General physical appearance well developed, well nourished, no distress, chronically ill, other (ET tube in place) - Eyes normal ocular movement - ENT atraumatic, normocephalic - Neck trachea midline - Respiratory normal expansion - Cardiovascular Cardiovascular exam: Present: RRR - Abdomen Abdomen general surgery: Present: bowel sounds present, soft, non tender - Integumentary Integumentary general surgery: Present: other (There is a 7-8 cm diameter fungating mass on her lower right back. It is draining serosanguinous liquid which is foul smelling.) Exam Initial Vital Signs Temp Pulse Resp BP Pulse Ox 0 F L 190 32 118/65 87 12/09/16 23:55 12/09/16 23:55 12/09/16 23:55 12/09/16 23:55 12/09/16 23:55 Results - Labs 12/10/16 06:18 12/10/16 00:16 Abnormal lab results WBC 35.4 K/mcL (4.3-11.1) H* 12/10/16 06:18 RBC 3.34 M/mcL (3.82-4.97) L 12/10/16 06:18 Hgb 8.2 g/dL (11.5-15.4) L D 12/10/16 06:18 Hct 29.3 % (35.3-44.9) L 12/10/16 06:18 MCH 24.6 pg (28.0-33.3) L 12/10/16 06:18 MCHC 28.0 g/dL (31.6-35.5) L 12/10/16 06:18 RDW 16.8 % (11.5-14.5) H 12/10/16 06:18 Plt Count 503 K/mcL (140-400) H 12/10/16 06:18 Neutrophils # 26.5 K/mcL (1.6-8.9) H 12/10/16 00:16 Monocytes # 2.7 K/mcL (0.0-1.3) H 12/10/16 00:16 Platelet Estimate Increased (Normal) H 12/10/16 00:16 Large Platelets Present (Not Present) A 12/10/16 00:16 Polychromasia 1+ (Not Present) A 12/10/16 00:16 Hypochromasia Present (Not Present) A 12/10/16 00:16 Anisocytosis 1+ (Not Present) A 12/10/16 00:16 PT 13.0 Seconds (9.4-12.1) H 12/10/16 00:16 ABG pO2 72 mmHg (85-104) L 12/10/16 09:30 ABG HCO3 27.9 mEQ/L (21-27) H 12/10/16 09:30 ABG Total CO2 29.2 mEq/L (20-26) H 12/10/16 09:30 ABG Base Excess 3.1 mEq/L (-2.0 to 3.0) H 12/10/16 09:30 Potassium 5.5 mEq/L (3.5-4.5) H 12/10/16 00:16 Chloride 95 mEq/L (98-109) L 12/10/16 00:16 Carbon Dioxide 34 mEq/L (19-29) H 12/10/16 00:16 BUN 22 mg/dL (7-20) H 12/10/16 00:16 Est GFR (Non-Af Amer) 52 (> 60) L 12/10/16 00:16 Glucose 349 mg/dL (70-99) H 12/10/16 00:16 POC Glucose 249 (58-89) H 12/10/16 04:33 Calculated Osmolality 303 (280-300) H 12/10/16 00:16 Creatine Kinase < 7 Units/L (29-168) L 12/10/16 00:16 B-Natriuretic Peptide 272 pg/mL (0-100) H 12/10/16 00:16 Urine Clarity Turbid (Clear) A 12/10/16 09:23 Ur Specific [place] 1.027 (1.010-1.025) H 12/10/16 09:23 Urine Protein 100 mg/dL (Neg-Trace) H 12/10/16 09:23 Urine Ketones Trace mg/dL (Negative) H 12/10/16 09:23 Urine Blood Small (Negative) H 12/10/16 09:23 Urine Bilirubin Small (Negative) H 12/10/16 09:23 Ur Leukocyte Esterase Large (Negative) H 12/10/16 09:23 Urine Microscopic RBC 5-15 per hpf (0-3) H 12/10/16 09:23 Urine Microscopic WBC 50-100 per hpf (0-3) H 12/10/16 09:23 Ur Squamous Epith Cells Moderate per lpf (None-Few) H 12/10/16 09:23 Urine Bacteria Many per hpf (None-Few) H 12/10/16 09:23 Ur Culture Indicated? YES (NO) A 12/10/16 09:23 All other labs normal. - Imaging Chest x-ray: report reviewed (IMPRESSION: Low-lying endotracheal tube approximate 1 cm above the kenia. Recommend retracting approximately 3 cm. Bilateral interstitial opacities may indicate mild edema, pneumonitis or chronic changes. Hazy opacity projects over right lung base may represent lung consolidation or consistent with patient's history of soft tissue mass. D/ / Wilfred Ivory / Wilfred Ivory Interpreting Provider: Wilfred Ivory ), image reviewed CT scan - abdomen: report reviewed, image reviewed CT scan - chest: report reviewed, image reviewed (IMPRESSION: 1. Large skin and subcutaneous mass involving the right side of the back. Skin malignancy is not excluded and biopsy is recommended 2. Numerous pulmonary nodules. Some of these appear calcified compatible with granulomas. However, others are not calcified including the largest nodule which is in the lingula. Pulmonary metastases would have to be considered if the patient has malignancy. In addition, there are low-attenuation lesions in the liver and bilateral adrenal masses which are also concerning for metastatic disease in the setting of malignancy. Dedicated liver and adrenal multiphasic postcontrast imaging may be helpful to better characterize the lesions. PET CT may be helpful if malignancy is confirmed 3. Small bilateral pleural effusions with bibasilar atelectasis. Extensive parenchymal calcifications within the atelectatic lung may indicate chronic atelectasis 4. Colonic diverticulosis 5. Status post cholecystectomy and hysterectomy D/ / Geoffrey Blake MD / Geoffrey Blake MD Interpreting Provider: Geoffrey Blake MD ) CT scan - pelvis: report reviewed, image reviewed Additional studies: CT Biopsy Liver IMPRESSION: Successful CT guided core biopsy liver. D/ / David Monroe MD / David Monroe MD Interpreting Provider: David Monroe MD R #: [id number] MR/MR head/brain wo/w con IMPRESSION: 1. No acute intracranial abnormality or evidence of intracranial metastatic disease. 2. Bilateral middle ear and mastoid effusions. D/ / Ranulfo Andrew MD / Ranulfo Andrew MD Interpreting Provider: Ranulfo Andrew MD Consult Discharge Plan - Plan Referrals: NONE,PCP [Primary Care Provider] - <Lizzeth Oconnor - Last Filed: 12/11/16 07:35> Date of Encounter: 12/11/16 Time of Encounter: 17:45 Assessment and Plan (1) Acute respiratory failure Current Visit: Yes Status: Acute patient still on vent, management per pulmonary CCM Qualifiers: Respiratory failure complication: hypoxia and hypercapnia Qualified Code(s) : J96.01 - Acute respiratory failure with hypoxia; J96.02 - Acute respiratory failure with hypercapnia (2) Atrial fibrillation with RVR Current Visit: Yes Status: Acute (3) DVT prophylaxis Current Visit: Yes Status: Acute heparin sq (4) Leukocytosis Current Visit: Yes Status: Acute Qualifiers: Leukocytosis type: unspecified Qualified Code(s): D72.829 - Elevated white blood cell count, unspecified (5) 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 Current Visit: No Status: Chronic (6) 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 Current Visit: No Status: Chronic Qualifiers: Laterality: unspecified laterality Qualified Code(s): C78.00 - Secondary malignant neoplasm of unspecified lung (7) Melanoma of back Current Visit: Yes Status: Chronic patient with known back melanoma, currently foul smelling and draining recommend: clean area with betadine swabs or betadine on 4x4 gauze, cover with betadine adaptic, 4x4 gauze, ABD pads and secure with tape (dont overdue it ,pt currently not moving on own) change BID and prn soilage consult radiation oncology to see if they can dry up back melanoma with radiation once patient improves History of Present Illness History of present illness: Patient is intubated and on a vent and all info obtained from chart, nursing, physicians. Patient is known to me from wound care. She presented recently with a back mass that was biopsied and shown to be melanoma. CT scans revealed what appeared to be metastatic disease to her liver and lungs. MRI without metastatic disease to her brain. Patient is currently in icu with respiratory failure and sepsis from presumed pneumonia and uti. The melanoma on her back is reported to be draining and foul smelling per nursing. Past Med Surg Social Fam HX - Past Medical History Medical history: atrial fibrillation, cancer (metastatic melanoma), hypertension Review of Systems ROS unobtainable: due to endotracheal tube All systems PM: A 10-system review of systems was performed and is negative for pertinent findings except as documented above in the HPI. General Surgery Exam Initial Vital Signs Temp Pulse Resp BP Pulse Ox 0 F L 190 32 118/65 87 12/09/16 23:55 12/09/16 23:55 12/09/16 23:55 12/09/16 23:55 12/09/16 23:55 - General physical appearance well nourished, no distress - Eyes pinpoint pupil - ENT dry mucosa, atraumatic, normocephalic, Other (ETT in place) - Integumentary Integumentary general surgery: Present: other - Neurologic Present: other (sedated on vent) - Musculoskeletal Present: other (sedated on vent) Exam Initial Vital Signs Temp Pulse Resp BP Pulse Ox 0 F L 190 32 118/65 87 12/09/16 23:55 12/09/16 23:55 12/09/16 23:55 12/09/16 23:55 12/09/16 23:55 Results - Labs 12/11/16 05:20 12/11/16 05:20 Abnormal lab results WBC 23.6 K/mcL (4.3-11.1) H 12/11/16 05:20 RBC 3.31 M/mcL (3.82-4.97) L 12/11/16 05:20 Hgb 8.0 g/dL (11.5-15.4) L 12/11/16 05:20 Hct 28.2 % (35.3-44.9) L 12/11/16 05:20 MCH 24.2 pg (28.0-33.3) L 12/11/16 05:20 MCHC 28.4 g/dL (31.6-35.5) L 12/11/16 05:20 RDW 16.7 % (11.5-14.5) H 12/11/16 05:20 Plt Count 428 K/mcL (140-400) H 12/11/16 05:20 Neutrophils # 21.8 K/mcL (1.6-8.9) H 12/11/16 05:20 Platelet Estimate Increased (Normal) H 12/11/16 05:20 Large Platelets Present (Not Present) A 12/11/16 05:20 Polychromasia 1+ (Not Present) A 12/10/16 00:16 Hypochromasia Present (Not Present) A 12/11/16 05:20 Anisocytosis 1+ (Not Present) A 12/11/16 05:20 Macrocytosis Present (Not Present) A 12/11/16 05:20 PT 13.0 Seconds (9.4-12.1) H 12/10/16 00:16 ABG pO2 59 mmHg (85-104) L 12/11/16 04:50 ABG Total CO2 26.7 mEq/L (20-26) H 12/11/16 04:50 ABG O2 Saturation 90 % (95-98) L 12/11/16 04:50 Sodium 134 mEq/L (136-145) L 12/11/16 05:20 BUN 25 mg/dL (7-20) H 12/11/16 05:20 BUN/Creatinine Ratio 28 (6-26) H 12/11/16 05:20 Glucose 313 mg/dL (70-99) H 12/11/16 05:20 POC Glucose 320 (58-89) H 12/11/16 04:12 Calcium 8.2 mg/dL (8.6-10.8) L 12/11/16 05:20 Alkaline Phosphatase 165 Units/L (38-126) H 12/11/16 05:20 Creatine Kinase < 7 Units/L (29-168) L 12/10/16 00:16 B-Natriuretic Peptide 272 pg/mL (0-100) H 12/10/16 00:16 Serum Total Protein 5.6 g/dL (6.0-8.3) L 12/11/16 05:20 Albumin 1.7 g/dL (3.5-5.0) L 12/11/16 05:20 Globulin 3.9 g/dL (2.4-3.5) H 12/11/16 05:20 Albumin/Globulin Ratio 0.4 (1.1-2.2) L 12/11/16 05:20 Urine Clarity Turbid (Clear) A 12/10/16 09:23 Ur Specific [place] 1.027 (1.010-1.025) H 12/10/16 09:23 Urine Protein 100 mg/dL (Neg-Trace) H 12/10/16 09:23 Urine Ketones Trace mg/dL (Negative) H 12/10/16 09:23 Urine Blood Small (Negative) H 12/10/16 09:23 Urine Bilirubin Small (Negative) H 12/10/16 09:23 Ur Leukocyte Esterase Large (Negative) H 12/10/16 09:23 Urine Microscopic RBC 5-15 per hpf (0-3) H 12/10/16 09:23 Urine Microscopic WBC 50-100 per hpf (0-3) H 12/10/16 09:23 Ur Squamous Epith Cells Moderate per lpf (None-Few) H 12/10/16 09:23 Urine Bacteria Many per hpf (None-Few) H 12/10/16 09:23 Ur Culture Indicated? YES (NO) A 12/10/16 09:23 Diabetes panel 12/11/16 Range/Units 05:20 Sodium 134 L (136-145) mEq/L Potassium 3.6 D (3.5-4.5) mEq/L Chloride 101 (98-109) mEq/L Carbon Dioxide 26 (19-29) mEq/L BUN 25 H (7-20) mg/dL Creatinine 0.90 (0.57-1.11) mg/dL Glucose 313 H (70-99) mg/dL Calcium 8.2 L (8.6-10.8) mg/dL AST 31 (5-34) Units/L ALT 21 (0-55) Units/L Alkaline Phosphatase 165 H (38-126) Units/L Albumin 1.7 L (3.5-5.0) g/dL Calcium panel 12/11/16 Range/Units 05:20 Calcium 8.2 L (8.6-10.8) mg/dL Albumin 1.7 L (3.5-5.0) g/dL Pituitary panel 12/11/16 Range/Units 05:20 Sodium 134 L (136-145) mEq/L Potassium 3.6 D (3.5-4.5) mEq/L Chloride 101 (98-109) mEq/L Carbon Dioxide 26 (19-29) mEq/L BUN 25 H (7-20) mg/dL Creatinine 0.90 (0.57-1.11) mg/dL Glucose 313 H (70-99) mg/dL Calcium 8.2 L (8.6-10.8) mg/dL Adrenal panel 12/11/16 Range/Units 05:20 Sodium 134 L (136-145) mEq/L Potassium 3.6 D (3.5-4.5) mEq/L Chloride 101 (98-109) mEq/L Carbon Dioxide 26 (19-29) mEq/L BUN 25 H (7-20) mg/dL Creatinine 0.90 (0.57-1.11) mg/dL Glucose 313 H (70-99) mg/dL Calcium 8.2 L (8.6-10.8) mg/dL Total Bilirubin < 0.3 (0.2-1.2) mg/dL AST 31 (5-34) Units/L ALT 21 (0-55) Units/L Alkaline Phosphatase 165 H (38-126) Units/L Albumin 1.7 L (3.5-5.0) g/dL All other labs normal. - Attending Attestation I examined this patient and my medical decision-making was reviewed with the Resident Physician. I agree with the documented findings, disposition and treatment plan as described except to the extent set forth below.
[2016-12-10] MEDS ORDERED: Insulin LISPRO 300 UNITS/3 ML VIAL SQ SCH (12:00)
[2016-12-10] MEDS: Lacri-Lube 3.5 GM TUBE BOTH EYES SCH ×4 (12:06→23:18)
--- NOTE | 2016-12-10 14:14 | Palliative - Consult Note ---
Date of Encounter: 12/10/16 Time of Encounter: 14:00 - Assessment and Plan (1) Generalized pain Current Visit: Yes Status: Acute Assessment and plan: On Fentanyl 12.5 per hour per ICU protocol. - monitor. (2) Dyspnea Current Visit: Yes Status: Acute Assessment and plan: Continues with vent support and receiving treatment for pneumonia Qualifiers: Dyspnea type: unspecified Qualified Code(s): R06.00 - Dyspnea, unspecified (3) Counseling regarding advanced care planning and goals of care Current Visit: Yes Status: Acute Assessment and plan: No family present at this time. Awaiting results from testing this afternoon, and will await consultations from surgery as well as oncology. Will follow clinical course closely and assist as needed. She had documented DNRCC-Arrest from ECF. Cannot find any other advanced directives in our system. Appears is next of kin, and has son closely involved in care. 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 Current Visit: No Status: Acute (5) Acute respiratory failure Current Visit: Yes Status: Acute Qualifiers: Respiratory failure complication: hypoxia and hypercapnia Qualified Code(s) : J96.01 - Acute respiratory failure with hypoxia; J96.02 - Acute respiratory failure with hypercapnia (6) RLL pneumonia Current Visit: Yes Status: Acute Qualifiers: Pneumonia type: due to unspecified organism Qualified Code(s): J18.1 - Lobar pneumonia, unspecified organism Palliative-CN HPI - Data of Consult Consult date: 12/10/16 Requesting Physician: Keren Zhu MD Primary Care Provider: PCP NONE - Consult Narrative History of present illness: Ms. Canela is a 76 year old female who was at [facility] for rehab, when she was in resp distress and hypoxic. She apparently called for help at the [facility] and sats were in the 80's. She had recently been at [facility] and was in workup for suspected metastatic melanoma. She was referred to the [facility] and saw Dr. Tim and had follow up scheduled. Dr. Oconnor with [facility] has also seen pt for evaluation of metastatic melanoma lesion on her back. It does not appear they were given results of liver biopsy as of yet. She is currently intubated and in ICU - treating for pneumonia. She was cardioverted yesterday after arrival as well. She is off sedation, moves feet but not following commands or opening eyes as of yet. Not requiring pressors as of this time. Remains on antibiotics. Echo completed this am and scheduled for CT head this afternoon. Has medical history of atrial fibrillation and CHF. CC: Keren Zhu MD Past Med Surg Social Fam HX - Past Medical History Medical history: atrial fibrillation, hypertension, other Psychiatric history: depression - Past Surgical History Surgical History: appendectomy, , cataract, cholecystectomy, hysterectomy, ANDREINA/BSO - Social History Smoking Status: Former smoker Smokeless Tobacco Status: No Alcohol use: none Drug use: none - Family History Father Living Status: Hx Family Cardiac Disorders: Yes Hx Family Neuromuscular Disorders: Yes Medications and Allergies Albuterol Sulfate [Ventolin Hfa] 2 puff IH Q6H PRN 11/09/16 [History] Furosemide [Lasix] 40 mg PO DAILY 11/09/16 [History] Ipratropium/Albuterol Neb [Duoneb] 3 ml IH Q6HR 11/09/16 [History] Metoprolol [Lopressor] 12.5 mg PO BID 11/09/16 [History] Potassium Chloride [K-Tab ER] 20 meq PO DAILY 11/09/16 [History] Ferrous Sulfate [Iron] 325 mg PO DAILY 12/10/16 [History] Nystatin POWDER [Nystop] 1 appl TP DAILY 12/10/16 [History] Allergies Sulfa (Sulfonamide Antibiotics) Adverse Reaction (Verified 12/10/16 09:02) Rash ROS unobtainable: due to endotracheal tube Palliative Care-Exam - Constitutional Vitals: Temp Pulse Resp BP Pulse Ox 97.6 F 64 16 81/52 96 12/10/16 13:01 12/10/16 13:00 12/10/16 13:06 12/10/16 13:06 12/10/16 13:06 General appearance: Present: no acute distress - Head Head Exam: Present: normal inspection, normocephalic - Eye Eye exam: Present: normal appearance, PERRL - Respiratory Additional comments: Rhonchi noted left anterior chest - Cardiovascular Cardiovascular exam: Present: irregular rhythm - GI/Abdominal Exam GI/Abdominal exam: Present: normal bowel sounds, soft - Catheter Type: Urethral ([place]) - Extremities Exam Additional comments: Lower extremities with plaque like yellowish lesions. Bottom of feet and toes mottled and cool to touch. - Neurological Exam Additional comments: Off sedation. Does not follow commands or respond to voice. Does move feet bilaterally when examined and squeezed eyes shut during exam. - Skin Skin exam: Present: dry, pallor Internal Medicine - CN: Reslt - Labs CBC & Chem 7: 12/10/16 06:18 12/10/16 00:16 Labs: Short CBC 12/10/16 Range/Units 06:18 WBC 35.4 H* (4.3-11.1) K/mcL Hgb 8.2 L D (11.5-15.4) g/dL Hct 29.3 L (35.3-44.9) % Plt Count 503 H (140-400) K/mcL Urine 12/10/16 Range/Units 09:23 Urine Color Dark Yellow (Yellow) Urine Clarity Turbid A (Clear) Urine pH 5.5 (5.0-8.0) pH Units Ur Specific [place] 1.027 H (1.010-1.025) Urine Protein 100 H (Neg-Trace) mg/dL Urine Glucose (UA) Normal (Normal) mg/dL - ABG Interpretation ABG results: ABG ABG pH 7.42 pH Units (7.32-7.45) 12/10/16 09:30 ABG pCO2 43 mmHg (35-45) 12/10/16 09:30 ABG pO2 72 mmHg (85-104) L 12/10/16 09:30 ABG O2 Saturation 95 % (95-98) 12/10/16 09:30 PT/INR, D-dimer PT 13.0 Seconds (9.4-12.1) H 12/10/16 00:16 Consult Discharge Plan - Plan Referrals: NONE,PCP [Primary Care Provider] - Palliative Quality Palliative Quality: Screen for Code Status: Yes, Screen for Goals of Care: NA, Screen for Pain: NA, If Pain Regimen Started, Initiate Bowel Regimen: NA, Screen for Nausea/Vomitting: NA
--- NOTE | 2016-12-10 14:43 | Electrocardiograph Report ---
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
--- NOTE | 2016-12-10 15:02 | Oncology Inp Consult Note ---
Date of Encounter: 12/10/16 Time of Encounter: 14:45 Assessment and Plan (1) Malignant melanoma of lower back Assessment and plan: Etiology of sepsis may be related to malignant melanoma on the back, but more likely pulmonary and/or urinary source. Would hold off on any radiotherapy intervention until improved from sepsis. Can be further addressed when patient is more stable as an inpatient or on an outpatient basis. May benefit from palliative radiotherapy to that area to prevent complications in the future. Will discuss with patient and family once improved. Family meeting is scheduled for tomorrow regarding goals of care in the setting of acute illness and incurable metastatic melanoma. Booker Buchanan MD Radiation Oncology - Data of Consult Requesting Physician: Keren Zhu MD Primary Care Provider: PCP NONE - Consult Narrative Reason for consult: Radiation oncology consult History of present illness: Ms. Canela is a 76 year old female who is seen today in the ICU where she is currently intubated for sepsis. She has a recent diagnosis of metastatic melanoma with primary from large lesion on right back. She reportedly had a few days of shortness of breath prior to presentation. Chest x-ray demonstrated a possible right lower lobe pneumonia. She was intubated due to agitation in the emergency department and subsequently developed hypotension. She was placed on Levaquin which has since been stopped. Currently, she denies pain and is able to communicate mouthing words and nodding head. She denies abdominal pain. She denies back pain. History was otherwise obtained from the medical record. Past Med Surg Social Fam HX - Past Medical History Medical history: atrial fibrillation, cancer (Metastatic melanoma), hypertension , other Psychiatric history: depression - Past Surgical History Surgical History: appendectomy, , cataract, cholecystectomy, hysterectomy, ANDREINA/BSO - Social History Smoking Status: Former smoker Smokeless Tobacco Status: No Alcohol use: none Drug use: none - Family History Father Living Status: Hx Family Cardiac Disorders: Yes Hx Family Neuromuscular Disorders: Yes Medications and Allergies Albuterol Sulfate [Ventolin Hfa] 2 puff IH Q6H PRN 11/09/16 [History] Furosemide [Lasix] 40 mg PO DAILY 11/09/16 [History] Ipratropium/Albuterol Neb [Duoneb] 3 ml IH Q6HR 11/09/16 [History] Metoprolol [Lopressor] 12.5 mg PO BID 11/09/16 [History] Potassium Chloride [K-Tab ER] 20 meq PO DAILY 11/09/16 [History] Ferrous Sulfate [Iron] 325 mg PO DAILY 12/10/16 [History] Nystatin POWDER [Nystop] 1 appl TP DAILY 12/10/16 [History] Allergies Sulfa (Sulfonamide Antibiotics) Adverse Reaction (Verified 12/10/16 09:02) Rash ROS unobtainable: due to endotracheal tube Oncology - Exam - Constitutional Vitals: Temp Pulse Resp BP Pulse Ox 97.6 F 80 16 94/55 96 12/10/16 13:01 12/10/16 14:00 12/10/16 14:00 12/10/16 14:00 12/10/16 14:00 Exam: GENERAL: Sedated but responsive, intubated HEENT: Sclerae anicteric. Lungs: Diminished breath sounds on right Cardiovascular: Regular rhythm Trunk: Soft, nontender, nondistended; 8 cm diameter fungating malodorous mass on her lower right back draining serosanguinous fluid Extremities: No edema. Oncology - Results - Labs Labs: Short CBC 12/10/16 Range/Units 06:18 WBC 35.4 H* (4.3-11.1) K/mcL Hgb 8.2 L D (11.5-15.4) g/dL Hct 29.3 L (35.3-44.9) % Plt Count 503 H (140-400) K/mcL Urine 12/10/16 Range/Units 09:23 Urine Color Dark Yellow (Yellow) Urine Clarity Turbid A (Clear) Urine pH 5.5 (5.0-8.0) pH Units Ur Specific [place] 1.027 H (1.010-1.025) Urine Protein 100 H (Neg-Trace) mg/dL Urine Glucose (UA) Normal (Normal) mg/dL Consult Discharge Plan - Plan Referrals: NONE,PCP [Primary Care Provider] -
--- NOTE | 2016-12-10 15:17 | Oncology Inp Consult Note ---
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 No results of BRAF available. At this time she is not a candidate for palliative therapy, but if her sepsis resolved and performance status improves, options to consider for palliative therapy included options such as target therapy with BRAF inhibitors if positive for BRAF mutation or chemotherapy +- immunotherapy if BRAF wild type ( these would include options such as pembrolizumab, nivolumab, ipilimumab). Family meeting is planned for tomorrow to address goals of care in the setting of acute illness. - I appreciate radiation oncology input regarding options of palliative radiation . (2) Respiratory failure with hypoxia and hypercapnia Status: Acute Assessment and plan: Seems to be improving. Management of sepsis, and respiratory failure as per ICU team. 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 She has declined the recommendation for a bone marrow biopsy in the past. - Data of Consult Requesting Physician: Keren Zhu MD Primary Care Provider: PCP NONE - Consult Narrative Reason for consult: management of stage IV melanoma History of present illness: Ms. Canela is a 76 year old female with history of COPD, Afib, CHF, IgG lambda paraproteinemia, fibromyalgia admitted due to hypoxic respiratory failure associated with Afib with RVR. She is unaccompanied and intubated during the visit. Patient was seen with patient's nurse at bedside, who reports that family members were present early today. She is able to follow basic commands ( e.g squeezing my fingers). She has a history of metastatic melanoma, diagnosed after underoing biopsy of chronic back wound with ulcerated mass. Further work up included imaging that revealed multiple pulmonary nodes, liver lesions and adrenal lesions suspicious for melanoma. Diagnosis was confirmed with biopsy of one of the liver lesions. I did not see order or results of BRAF testing. She was seen by medical oncology on 11/20/16, at that time the patient expressed her decision to pursue therapy. Her case was discussed in our tumor board and it was thought that she was not a surgical candidate, however radiation or systemic therapy remain as pallitive options. She was brought to the hospital after noticing to be hypoxic in the 80s while on 3 1/2 liters of oxygen. Hospital course: She was also noticed to be on Afib with RVR ( no anticoagulated). Her Afib was treated with cardioversion, and she was intubated in the ED for airway protection. She became hypotensive after being intubated ( propofol was used) and was managed with pressors. At this time she is off pressors, but remains intubated. Her code status is DNRCCA. Palliative care are on board. Seen by radiation oncology with not recommendations of radiation at this time in view of ongoing sepsis, although remains as an option down the road if her conditions improves. Past Med Surg Social Fam HX - Past Medical History Medical history: atrial fibrillation, hypertension, other Psychiatric history: depression - Past Surgical History Surgical History: appendectomy, , cataract, cholecystectomy, hysterectomy, ANDREINA/BSO - Social History Smoking Status: Former smoker Smokeless Tobacco Status: No Alcohol use: none Drug use: none - Family History Father Living Status: Hx Family Cardiac Disorders: Yes Hx Family Neuromuscular Disorders: Yes Medications and Allergies Albuterol Sulfate [Ventolin Hfa] 2 puff IH Q6H PRN 11/09/16 [History] Furosemide [Lasix] 40 mg PO DAILY 11/09/16 [History] Ipratropium/Albuterol Neb [Duoneb] 3 ml IH Q6HR 11/09/16 [History] Metoprolol [Lopressor] 12.5 mg PO BID 11/09/16 [History] Potassium Chloride [K-Tab ER] 20 meq PO DAILY 11/09/16 [History] Ferrous Sulfate [Iron] 325 mg PO DAILY 12/10/16 [History] Nystatin POWDER [Nystop] 1 appl TP DAILY 12/10/16 [History] Allergies Sulfa (Sulfonamide Antibiotics) Adverse Reaction (Verified 12/10/16 09:02) Rash ROS unobtainable: due to endotracheal tube Oncology - Exam - Constitutional Vitals: Temp Pulse Resp BP Pulse Ox 97.6 F 80 16 94/55 96 12/10/16 13:01 12/10/16 14:00 12/10/16 14:00 12/10/16 14:00 12/10/16 14:00 - Head Head exam: Present: normal inspection - ENT ENT exam: Present: mucous membranes moist (intubated) - Neck Neck exam: Present: normal inspection - Respiratory Respiratory exam: Present: CTAB - Cardiovascular Cardiovascular exam: Present: irregular rhythm, RRR - GI/Abdominal GI/Abdominal exam: Present: normal bowel sounds. Absent: organomegaly - Extremities Exam Extremities exam: Present: pedal edema. Absent: tenderness - Neurological Exam Additional comments: limited exam due to intubation, but not gross focal neurologic deficits. able to move both upper and lower extremities upon command - Skin Skin exam: Present: normal color Oncology - Results - Labs Labs: Short CBC 12/10/16 Range/Units 06:18 WBC 35.4 H* (4.3-11.1) K/mcL Hgb 8.2 L D (11.5-15.4) g/dL Hct 29.3 L (35.3-44.9) % Plt Count 503 H (140-400) K/mcL Urine 12/10/16 Range/Units 09:23 Urine Color Dark Yellow (Yellow) Urine Clarity Turbid A (Clear) Urine pH 5.5 (5.0-8.0) pH Units Ur Specific [place] 1.027 H (1.010-1.025) Urine Protein 100 H (Neg-Trace) mg/dL Urine Glucose (UA) Normal (Normal) mg/dL Consult Discharge Plan - Plan Referrals: NONE,PCP [Primary Care Provider] -
[2016-12-10 15:53] LABS: Sodium, Urine < 20.0 mEq/L
[2016-12-10 16:28] LABS: Osmolality,Urine 440 mOsm/kg (300-1090)
[2016-12-11] MEDS ORDERED: Vancomycin 1,000 MG in D5% in Water 250 ML IVPB SCH (02:00)
[2016-12-11] MEDS: Lacri-Lube 3.5 GM TUBE BOTH EYES SCH ×6 (03:02→23:14)
[2016-12-11] MEDS: Norepinephrine 4 MG in D5% in Water 250 ML IVC SCH (03:02)
[2016-12-11] MEDS: Azithromycin 500 MG in D5% in Water 250 ML IVPB SCH (03:02)
[2016-12-11] MEDS: Ipratropium/Albuterol Neb 3 ML IH SCH ×4 (03:46→21:35)
[2016-12-11] MEDS: Vancomycin 1,500 MG in D5% in Water 250 ML IVPB SCH (04:06)
[2016-12-11] MEDS: Insulin LISPRO 300 UNITS/3 ML VIAL SQ SCH ×3 (04:13→12:10)
[2016-12-11] MEDS ORDERED: *HR* Metoprolol 5 MG/5 ML VIAL IVP ONE ×2 (04:53→09:23)
[2016-12-11 05:01] LABS: ABG Base Excess 0.2 mEq/L (-2.0 to 3.0); ABG HCO3 25.4 mEQ/L (21-27); ABG Oxygen Saturation 90 % (95-98); ABG PCO2 43 mmHg (35-45); ABG PH 7.38 pH Units (7.32-7.45); ABG PO2 59 mmHg (85-104); ABG TCO2 26.7 mEq/L (20-26)
[2016-12-11 05:02] LABS: Blood Gas FiO2 30 %
[2016-12-11] MEDS: *HR* Enoxaparin 40 MG/0.4 ML SYRINGE SQ SCH (05:07)
[2016-12-11] MEDS: Pantoprazole 40 MG VIAL IVPB SCH (05:07)
[2016-12-11 05:40] LABS: Basophils % 0.1 %; Monocytes % 2.7 %
[2016-12-11 05:42] LABS: Hematocrit 28.2 % (35.3-44.9); Immature Granulocytes % 1.1 % (0-4); Lymphocytes # 0.9 K/mcL (0.6-4.6); Lymphocytes % 3.7 %; Mean Corpuscular HGB Conc 28.4 g/dL (31.6-35.5); Mean Corpuscular Hemoglobin 24.2 pg (28.0-33.3); Mean Corpuscular Volume 85.2 fL (83.0-100.0); Mean Platelet Volume 10.4 fL (9.4-12.4); Monocytes # 0.6 K/mcL (0.0-1.3); Neutrophils # 21.8 K/mcL (1.6-8.9); Platelet Count 428 K/mcL (140-400); Red Blood Count 3.31 M/mcL (3.82-4.97); Red Cell Distribution Width 16.7 % (11.5-14.5); Segmented Neutrophils % 92.4 %
[2016-12-11 05:43] LABS: Alanine Aminotransferase 21 Units/L (0-55); Albumin/Globulin Ratio 0.4 (1.1-2.2); Alkaline Phosphatase 165 Units/L (38-126); Aspartate Amino Transferase 31 Units/L (5-34); BUN/Creatinine Ratio 28 (6-26); Blood Urea Nitrogen 25 mg/dL (7-20); Calcium 8.2 mg/dL (8.6-10.8); Carbon Dioxide 26 mEq/L (19-29); Chloride 101 mEq/L (98-109); Globulin 3.9 g/dL (2.4-3.5); Glucose 313 mg/dL (70-99); Osmolality,Calculated 294 (280-300); Sodium 134 mEq/L (136-145); Total Protein 5.6 g/dL (6.0-8.3); eGFR For African Americans > 60 (> 60); eGFR For Non-African Americans > 60 (> 60)
[2016-12-11 05:44] LABS: Albumin 1.7 g/dL (3.5-5.0); Bilirubin,Total < 0.3 mg/dL (0.2-1.2); Potassium 3.6 mEq/L (3.5-4.5)
[2016-12-11 06:09] LABS: Anisocytosis 1+ (Not Present); Hypochromasia Present (Not Present); Large Platelets Present (Not Present); Macrocytosis Present (Not Present); Platelet Estimate Increased (Normal)
[2016-12-11] MEDS: Piperacillin/Tazobactam 3.375 GM in D5% in Water (Mini-Bag+) 100 ML IVPB SCH ×2 (08:06→17:04)
[2016-12-11] MEDS ORDERED: Aminoglycoside Consult 1 EACH MC ONE (08:38)
[2016-12-11] MEDS: Chlorhexidine Rinse 15 ML MOUTHWASH MM SCH ×2 (09:32→19:59)
[2016-12-11] MEDS ORDERED: *HR* Metoprolol 5 MG/5 ML VIAL IVP SCH (10:00)
--- NOTE | 2016-12-11 10:09 | Oncology Inp Progress Note ---
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 Family meeting is planned later today to address goals of care in the setting of acute illness. (2) Respiratory failure with hypoxia and hypercapnia Current Visit: Yes Status: Acute Assessment and plan: - Improving, now extubated. I appreciate excellent care of ICU team. . 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 She has declined the recommendation for a bone marrow biopsy in the past. Oncology: Subj Interval history: CC: sepsis " I feel lousy". Patient now extubated, off pressors, still being monitored in ICU. - Constitutional Vitals: Vital Signs Temp Pulse Resp BP Pulse Ox 12/11/16 10:00 97 12/11/16 09:45 20 106/83 97 12/11/16 09:19 88 19 106/83 99 12/11/16 09:00 126 18 106/90 97 12/11/16 08:00 88 19 106/83 99 12/11/16 07:42 99 12/11/16 07:39 99 21 100/74 93 12/11/16 07:00 97.9 F 90 20 107/66 97 12/11/16 06:03 99 21 100/74 93 12/11/16 05:20 21 91/69 93 12/11/16 05:01 89 16 99/71 95 12/11/16 04:03 89 16 88/61 95 12/11/16 03:43 19 88/61 95 12/11/16 03:00 66 16 94/58 94 12/11/16 02:01 66 16 94/59 94 12/11/16 01:20 16 90/68 94 12/11/16 01:03 97 16 88/58 94 12/11/16 00:00 97.8 F 97 16 95/50 94 12/10/16 23:33 16 94 12/10/16 23:09 96 18 111/72 96 12/10/16 22:00 97.3 F L 94 18 104/65 96 12/10/16 21:29 16 95/67 96 12/10/16 21:03 85 18 105/83 94 12/10/16 20:00 96.5 F L 85 18 89/63 94 12/10/16 19:39 16 84/58 94 12/10/16 19:00 85 18 84/58 96 12/10/16 18:00 85 18 91/61 96 12/10/16 17:18 16 86/54 96 12/10/16 17:00 60 16 79/59 97 12/10/16 16:33 16 86/54 96 12/10/16 16:00 58 16 86/54 96 12/10/16 15:14 80 12/10/16 15:13 80 16 94/55 96 12/10/16 15:00 67 16 88/61 96 12/10/16 14:00 80 16 94/55 96 12/10/16 13:06 16 81/52 96 12/10/16 13:01 97.6 F 12/10/16 13:00 64 16 81/52 96 12/10/16 12:17 97.6 F 12/10/16 12:00 56 16 105/68 100 12/10/16 11:13 16 100 12/10/16 11:12 45 16 90/48 100 12/10/16 11:00 50 16 104/64 100 Intake and Output 12/10/16 12/11/16 12/11/16 23:59 07:59 15:59 Intake Total 1415 / 1415 585 / 585 Output Total 250 / 250 150 / 150 Balance 1165 / 1165 435 / 435 Intake: IV Fluids 1100 / 1100 395 / 395 0.9 % Sodium Chloride 1, 1000 / 1000 000 ML @ 100 mls/hr IVC . Q10H [facility] Rx#:[id number] Levophed 4 MG In Dextrose 45 / 45 5% 250 ML @ 1 MCG/MIN 3. 75 mls/hr IVC CONT [facility] Rx #:[id number] Zithromax 500 mg In 250 / 250 Dextrose 5% 250 ML @ 252 mls/hr IVPB Q24H [facility] Rx#: [id number] Zosyn 3.375 GM In 100 / 100 100 / 100 Dextrose 5% (Minibag+) 100 ML 100 ML @ 25 mls/hr IVPB Q8HR [facility] Rx#: [id number] Tube Feeding 155 / 155 190 / 190 Free Water 160 / 160 Output: Catheter 250 / 250 150 / 150 Other: Stool Size Moderate Moderate Stool Consistency soft soft Stool Characteristics Tarry Stool Color Black Brown # Bowel Movements 1 Weight 94.1 kg Blood Glucose* 147 275 - Head Head exam: Present: normal inspection - Respiratory Respiratory exam: Present: CTAB - Cardiovascular Cardiovascular exam: Present: +S1 - GI/Abdominal GI/Abdominal exam: Present: normal bowel sounds Oncology: Obj Data - Labs CBC & Chem 7: 12/11/16 05:20 12/11/16 05:20 Labs: Laboratory Results - last 24 hr 12/10/16 12/10/16 12/10/16 07:21 11:35 15:38 WBC RBC Hgb Hct MCV MCH MCHC RDW Plt Count MPV Immature Gran % Seg Neutrophils % Lymphocytes % Monocytes % Eosinophils % Basophils % Neutrophils # Lymphocytes # Monocytes # Eosinophils # Basophils # Platelet Estimate Large Platelets Hypochromasia Anisocytosis Macrocytosis ABG pH ABG pCO2 ABG pO2 ABG HCO3 ABG Total CO2 ABG O2 Saturation ABG Base Excess Blood Gas Modality Inspired O2 Sodium Potassium Chloride Carbon Dioxide BUN Creatinine Est GFR ( Amer) Est GFR (Non-Af Amer) BUN/Creatinine Ratio Glucose POC Glucose 337 H 318 H Calculated Osmolality Calcium Total Bilirubin AST ALT Alkaline Phosphatase Serum Total Protein Albumin Globulin Albumin/Globulin Ratio Urine Osmolality 440 Urine Sodium < 20.0 12/10/16 12/10/16 12/10/16 18:18 19:48 23:17 WBC RBC Hgb Hct MCV MCH MCHC RDW Plt Count MPV Immature Gran % Seg Neutrophils % Lymphocytes % Monocytes % Eosinophils % Basophils % Neutrophils # Lymphocytes # Monocytes # Eosinophils # Basophils # Platelet Estimate Large Platelets Hypochromasia Anisocytosis Macrocytosis ABG pH ABG pCO2 ABG pO2 ABG HCO3 ABG Total CO2 ABG O2 Saturation ABG Base Excess Blood Gas Modality Inspired O2 Sodium Potassium Chloride Carbon Dioxide BUN Creatinine Est GFR ( Amer) Est GFR (Non-Af Amer) BUN/Creatinine Ratio Glucose POC Glucose 140 H 147 H 122 H Calculated Osmolality Calcium Total Bilirubin AST ALT Alkaline Phosphatase Serum Total Protein Albumin Globulin Albumin/Globulin Ratio Urine Osmolality Urine Sodium 12/11/16 12/11/16 12/11/16 04:12 04:50 05:20 WBC 23.6 H RBC 3.31 L Hgb 8.0 L Hct 28.2 L MCV 85.2 MCH 24.2 L MCHC 28.4 L RDW 16.7 H Plt Count 428 H MPV 10.4 Immature Gran % 1.1 Seg Neutrophils % 92.4 Lymphocytes % 3.7 Monocytes % 2.7 Eosinophils % 0.0 Basophils % 0.1 Neutrophils # 21.8 H Lymphocytes # 0.9 Monocytes # 0.6 Eosinophils # 0.0 Basophils # 0.0 Platelet Estimate Increased H Large Platelets Present A Hypochromasia Present A Anisocytosis 1+ A Macrocytosis Present A ABG pH 7.38 ABG pCO2 43 ABG pO2 59 L ABG HCO3 25.4 ABG Total CO2 26.7 H ABG O2 Saturation 90 L ABG Base Excess 0.2 Blood Gas Modality VC+ Inspired O2 30 Sodium Potassium Chloride Carbon Dioxide BUN Creatinine Est GFR ( Amer) Est GFR (Non-Af Amer) BUN/Creatinine Ratio Glucose POC Glucose 320 H Calculated Osmolality Calcium Total Bilirubin AST ALT Alkaline Phosphatase Serum Total Protein Albumin Globulin Albumin/Globulin Ratio Urine Osmolality Urine Sodium 12/11/16 12/11/16 05:20 07:27 WBC RBC Hgb Hct MCV MCH MCHC RDW Plt Count MPV Immature Gran % Seg Neutrophils % Lymphocytes % Monocytes % Eosinophils % Basophils % Neutrophils # Lymphocytes # Monocytes # Eosinophils # Basophils # Platelet Estimate Large Platelets Hypochromasia Anisocytosis Macrocytosis ABG pH ABG pCO2 ABG pO2 ABG HCO3 ABG Total CO2 ABG O2 Saturation ABG Base Excess Blood Gas Modality Inspired O2 Sodium 134 L Potassium 3.6 D Chloride 101 Carbon Dioxide 26 BUN 25 H Creatinine 0.90 Est GFR ( Amer) > 60 Est GFR (Non-Af Amer) > 60 BUN/Creatinine Ratio 28 H Glucose 313 H POC Glucose 275 H Calculated Osmolality 294 Calcium 8.2 L Total Bilirubin < 0.3 AST 31 ALT 21 Alkaline Phosphatase 165 H Serum Total Protein 5.6 L Albumin 1.7 L Globulin 3.9 H Albumin/Globulin Ratio 0.4 L Urine Osmolality Urine Sodium - Impressions Impressions Head CT 12/10/16 14:00 IMPRESSION: 1. No acute intracranial abnormality or evidence of abnormal enhancement. 2. Bilateral mastoid air cell and middle and airspace effusions. Right sphenoid sinus effusion D/ / Gregg Hernandez MD / Gregg Hernandez MD Interpreting Provider: Gregg Hernandez MD - ABG Interpretation ABG results: ABG ABG pH 7.38 pH Units (7.32-7.45) 12/11/16 04:50 ABG pCO2 43 mmHg (35-45) 12/11/16 04:50 ABG pO2 59 mmHg (85-104) L 12/11/16 04:50 ABG O2 Saturation 90 % (95-98) L 12/11/16 04:50 PT/INR, D-dimer PT 13.0 Seconds (9.4-12.1) H 12/10/16 00:16 Consult Discharge Plan - Plan Referrals: NONE,PCP [Primary Care Provider] -
[2016-12-11] MEDS: 0.9 % Sodium Chloride 1,000 ML IVC SCH ×2 (11:03→19:59)
--- NOTE | 2016-12-11 11:42 | Pulmonology Progress Note ---
<Aleksandr Kumar - Last Filed: 12/11/16 11:59> Date of Encounter: 12/11/16 Time of Encounter: 07:00 Assessment and Plan (1) Respiratory failure with hypoxia and hypercapnia Current Visit: Yes Status: Acute Patient will be extubated today following completion and passing of her spontaneous breathing trial. We will continue her on nasal cannula as tolerated. I will talk to her and see how she is mentating. We will reassess her respiratory status tomorrow. Qualifiers: Chronicity: acute Qualified Code(s): J96.01 - Acute respiratory failure with hypoxia; J96.02 - Acute respiratory failure with hypercapnia (2) RLL pneumonia Current Visit: Yes Status: Acute Her leukocytosis has improved to 23.6. Her severe hypertension has also improved and she is maintained a map greater than 65. She no longer is on the Levophed. At this point, I think she is being appropriately treated for her pneumonia and we will continue the antimicrobials. (3) Atrial fibrillation with RVR Current Visit: Yes Status: Acute Last night she had an episode of atrial fibrillation with RVR with a rate into the 140s. Today she has been in atrial fibrillation with RVR with a rate in the 120s. I have started her on Lopressor 2.5 mg every 5 minutes when necessary to help control her rate. I will also monitor her blood pressure make sure that it is tolerating the beta deanne. It appears that she was on 25 mg of Lopressor twice daily at home. After evaluating whether she can swallow or not, we will discontinue the IV Lopressor and restart her home medications. (4) Leukocytosis Current Visit: Yes Status: Acute See above Qualifiers: Leukocytosis type: unspecified Qualified Code(s): D72.829 - Elevated white blood cell count, unspecified (5) Malignant melanoma of lower back Current Visit: Yes Status: Acute This is being followed by general surgery and radiation oncology. (6) 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 Current Visit: No Status: Chronic I have discussed with the patient's son of her recent liver biopsy. I have also informed her son that the prognosis for this is poor. She is being evaluated and treated by oncology, and they have suggested palliative therapy through the abdomen of chemotherapy agents. At this time, I think it is important for the entire family and the patient did have a discussion about future management of her malignancy. (7) DVT prophylaxis Current Visit: Yes Status: Acute Patient is on enoxaparin 40 mg once daily Subjective Principal diagnosis: Pneumonia, Malignant Melanoma, severe hypotenstion Interval history: The patient was intubated overnight, but will be extubated today. She is alert and oriented. She had one episode of atrial fibrillation with RVR with a rate into the 140s last night. Objective PUL Vital signs: Last Vital Signs Temp 97.9 F 12/11/16 07:00 Pulse 98 12/11/16 11:10 Resp 20 12/11/16 11:16 BP 117/75 12/11/16 11:00 Pulse Ox 100 12/11/16 11:16 General appearance: other (Intubated) Eyes: nonicteric Effort: normal Auscultation: bilateral: clear Cardiovascular: irregular rhythm, other (Telemetry: Atrial fibrillation with a ventricular rate of 121) Gastrointestinal: normoactive bowel sounds Integumentary: other (5 x 5 cm ovoid fungating mass, malodorous, leaking serosanguineous fluid) Extremities: no cyanosis, no edema, pulses normal, no ischemia or petechiae other (Unable to assess due to intubation) Ventilator Settings Ventilator Settings: Ventilator Settings, Last 8 Hours Ventilator Mode VC+ Ventilator Mode VC+ Ventilator Mode VC+ Ventilator Mode VC+ Ventilator Mode VC+ Ventilator Mode VC+ Ventilator Mode VC+ Ventilator Tidal Volume 450 Setting Ventilator Tidal Volume 450 Setting Ventilator Tidal Volume 450 Setting Ventilator Tidal Volume 450 Setting Ventilator Tidal Volume 450 Setting Ventilator Tidal Volume 450 Setting Ventilator Tidal Volume 450 Setting Ventilator Respiratory Rate 16 Setting Ventilator Respiratory Rate 16 Setting Ventilator Respiratory Rate 16 Setting Ventilator Respiratory Rate 16 Setting Ventilator Respiratory Rate 16 Setting Ventilator Respiratory Rate 16 Setting Ventilator Respiratory Rate 16 Setting Actual Respiratory Rate 21 Actual Respiratory Rate 21 Actual Respiratory Rate 21 Actual Respiratory Rate 16 Actual Respiratory Rate 16 Actual Respiratory Rate 16 Positive End Expiratory 5 Pressure Positive End Expiratory 5 Pressure Positive End Expiratory 5 Pressure Positive End Expiratory 5 Pressure Positive End Expiratory 5 Pressure Positive End Expiratory 5 Pressure Positive End Expiratory 5 Pressure Peak Inspiratory Airway 17 Pressure Peak Inspiratory Airway 17 Pressure Peak Inspiratory Airway 18 Pressure Peak Inspiratory Airway 18 Pressure Peak Inspiratory Airway 18 Pressure Peak Inspiratory Airway 18 Pressure Results - Laboratory Findings CBC and BMP: 12/11/16 05:20 12/11/16 05:20 ABG ABG pH 7.38 pH Units (7.32-7.45) 12/11/16 04:50 ABG pCO2 43 mmHg (35-45) 12/11/16 04:50 ABG pO2 59 mmHg (85-104) L 12/11/16 04:50 ABG O2 Saturation 90 % (95-98) L 12/11/16 04:50 PT/INR, D-dimer PT 13.0 Seconds (9.4-12.1) H 12/10/16 00:16 Abnormal lab findings: Abnormal lab results WBC 23.6 K/mcL (4.3-11.1) H 12/11/16 05:20 RBC 3.31 M/mcL (3.82-4.97) L 12/11/16 05:20 Hgb 8.0 g/dL (11.5-15.4) L 12/11/16 05:20 Hct 28.2 % (35.3-44.9) L 12/11/16 05:20 MCH 24.2 pg (28.0-33.3) L 12/11/16 05:20 MCHC 28.4 g/dL (31.6-35.5) L 12/11/16 05:20 RDW 16.7 % (11.5-14.5) H 12/11/16 05:20 Plt Count 428 K/mcL (140-400) H 12/11/16 05:20 Neutrophils # 21.8 K/mcL (1.6-8.9) H 12/11/16 05:20 Platelet Estimate Increased (Normal) H 12/11/16 05:20 Large Platelets Present (Not Present) A 12/11/16 05:20 Polychromasia 1+ (Not Present) A 12/10/16 00:16 Hypochromasia Present (Not Present) A 12/11/16 05:20 Anisocytosis 1+ (Not Present) A 12/11/16 05:20 Macrocytosis Present (Not Present) A 12/11/16 05:20 PT 13.0 Seconds (9.4-12.1) H 12/10/16 00:16 ABG pO2 59 mmHg (85-104) L 12/11/16 04:50 ABG Total CO2 26.7 mEq/L (20-26) H 12/11/16 04:50 ABG O2 Saturation 90 % (95-98) L 12/11/16 04:50 Sodium 134 mEq/L (136-145) L 12/11/16 05:20 BUN 25 mg/dL (7-20) H 12/11/16 05:20 BUN/Creatinine Ratio 28 (6-26) H 12/11/16 05:20 Glucose 313 mg/dL (70-99) H 12/11/16 05:20 POC Glucose 275 (58-89) H 12/11/16 07:27 Calcium 8.2 mg/dL (8.6-10.8) L 12/11/16 05:20 Alkaline Phosphatase 165 Units/L (38-126) H 12/11/16 05:20 Creatine Kinase < 7 Units/L (29-168) L 12/10/16 00:16 B-Natriuretic Peptide 272 pg/mL (0-100) H 12/10/16 00:16 Serum Total Protein 5.6 g/dL (6.0-8.3) L 12/11/16 05:20 Albumin 1.7 g/dL (3.5-5.0) L 12/11/16 05:20 Globulin 3.9 g/dL (2.4-3.5) H 12/11/16 05:20 Albumin/Globulin Ratio 0.4 (1.1-2.2) L 12/11/16 05:20 Urine Clarity Turbid (Clear) A 12/10/16 09:23 Ur Specific [place] 1.027 (1.010-1.025) H 12/10/16 09:23 Urine Protein 100 mg/dL (Neg-Trace) H 12/10/16 09:23 Urine Ketones Trace mg/dL (Negative) H 12/10/16 09:23 Urine Blood Small (Negative) H 12/10/16 09:23 Urine Bilirubin Small (Negative) H 12/10/16 09:23 Ur Leukocyte Esterase Large (Negative) H 12/10/16 09:23 Urine Microscopic RBC 5-15 per hpf (0-3) H 12/10/16 09:23 Urine Microscopic WBC 50-100 per hpf (0-3) H 12/10/16 09:23 Ur Squamous Epith Cells Moderate per lpf (None-Few) H 12/10/16 09:23 Urine Bacteria Many per hpf (None-Few) H 12/10/16 09:23 Ur Culture Indicated? YES (NO) A 12/10/16 09:23 - Microbiology Findings Microbiology Findings: Microbiology, Last 48 Hours 12/10/16 09:30 Sputum Culture - Preliminary Sputum - Clinical Findings Intake & Output: Intake & Output 12/10/16 12/11/16 12/11/16 23:59 07:59 15:59 Intake Total 1415 / 1415 585 / 585 1000 / 1000 Output Total 250 / 250 150 / 150 Balance 1165 / 1165 435 / 435 1000 / 1000 Weight 94.1 kg Consult Discharge Plan - Plan Referrals: NONE,PCP [Primary Care Provider] - <Ari Blanco - Last Filed: 12/11/16 15:06> Date of Encounter: 12/11/16 Objective PUL Vital signs: Last Vital Signs Temp 96.8 F L 12/11/16 11:00 Pulse 95 12/11/16 14:00 Resp 20 12/11/16 14:00 BP 103/80 12/11/16 14:00 Pulse Ox 96 12/11/16 14:00 Results - Laboratory Findings CBC and BMP: 12/11/16 05:20 12/11/16 05:20 ABG ABG pH 7.38 pH Units (7.32-7.45) 12/11/16 04:50 ABG pCO2 43 mmHg (35-45) 12/11/16 04:50 ABG pO2 59 mmHg (85-104) L 12/11/16 04:50 ABG O2 Saturation 90 % (95-98) L 12/11/16 04:50 PT/INR, D-dimer PT 13.0 Seconds (9.4-12.1) H 12/10/16 00:16 Abnormal lab findings: Abnormal lab results WBC 23.6 K/mcL (4.3-11.1) H 12/11/16 05:20 RBC 3.31 M/mcL (3.82-4.97) L 12/11/16 05:20 Hgb 8.0 g/dL (11.5-15.4) L 12/11/16 05:20 Hct 28.2 % (35.3-44.9) L 12/11/16 05:20 MCH 24.2 pg (28.0-33.3) L 12/11/16 05:20 MCHC 28.4 g/dL (31.6-35.5) L 12/11/16 05:20 RDW 16.7 % (11.5-14.5) H 12/11/16 05:20 Plt Count 428 K/mcL (140-400) H 12/11/16 05:20 Neutrophils # 21.8 K/mcL (1.6-8.9) H 12/11/16 05:20 Platelet Estimate Increased (Normal) H 12/11/16 05:20 Large Platelets Present (Not Present) A 12/11/16 05:20 Polychromasia 1+ (Not Present) A 12/10/16 00:16 Hypochromasia Present (Not Present) A 12/11/16 05:20 Anisocytosis 1+ (Not Present) A 12/11/16 05:20 Macrocytosis Present (Not Present) A 12/11/16 05:20 PT 13.0 Seconds (9.4-12.1) H 12/10/16 00:16 ABG pO2 59 mmHg (85-104) L 12/11/16 04:50 ABG Total CO2 26.7 mEq/L (20-26) H 12/11/16 04:50 ABG O2 Saturation 90 % (95-98) L 12/11/16 04:50 Sodium 134 mEq/L (136-145) L 12/11/16 05:20 BUN 25 mg/dL (7-20) H 12/11/16 05:20 BUN/Creatinine Ratio 28 (6-26) H 12/11/16 05:20 Glucose 313 mg/dL (70-99) H 12/11/16 05:20 POC Glucose 188 (58-89) H 12/11/16 11:20 Calcium 8.2 mg/dL (8.6-10.8) L 12/11/16 05:20 Alkaline Phosphatase 165 Units/L (38-126) H 12/11/16 05:20 Creatine Kinase < 7 Units/L (29-168) L 12/10/16 00:16 B-Natriuretic Peptide 272 pg/mL (0-100) H 12/10/16 00:16 Serum Total Protein 5.6 g/dL (6.0-8.3) L 12/11/16 05:20 Albumin 1.7 g/dL (3.5-5.0) L 12/11/16 05:20 Globulin 3.9 g/dL (2.4-3.5) H 12/11/16 05:20 Albumin/Globulin Ratio 0.4 (1.1-2.2) L 12/11/16 05:20 Urine Clarity Turbid (Clear) A 12/10/16 09:23 Ur Specific [place] 1.027 (1.010-1.025) H 12/10/16 09:23 Urine Protein 100 mg/dL (Neg-Trace) H 12/10/16 09:23 Urine Ketones Trace mg/dL (Negative) H 12/10/16 09:23 Urine Blood Small (Negative) H 12/10/16 09:23 Urine Bilirubin Small (Negative) H 12/10/16 09:23 Ur Leukocyte Esterase Large (Negative) H 12/10/16 09:23 Urine Microscopic RBC 5-15 per hpf (0-3) H 12/10/16 09:23 Urine Microscopic WBC 50-100 per hpf (0-3) H 12/10/16 09:23 Ur Squamous Epith Cells Moderate per lpf (None-Few) H 12/10/16 09:23 Urine Bacteria Many per hpf (None-Few) H 12/10/16 09:23 Ur Culture Indicated? YES (NO) A 12/10/16 09:23 - Microbiology Findings Microbiology Findings: Microbiology, Last 48 Hours 12/10/16 09:23 Urine Culture - Preliminary Urine,Clean Catch Escherichia coli 12/10/16 09:30 Sputum Culture - Preliminary Sputum - Clinical Findings Intake & Output: Intake & Output 12/10/16 12/11/16 12/11/16 23:59 07:59 15:59 Intake Total 1415 / 1415 835 / 835 1160 / 1160 Output Total 250 / 250 150 / 150 250 / 250 Balance 1165 / 1165 685 / 685 910 / 910 Weight 94.1 kg 94.8 kg - Attending Attestation I examined this patient and my medical decision-making was reviewed with the Resident Physician. I agree with the documented findings, disposition and treatment plan as described except to the extent set forth below. Patient seen and examined. Labs, radiology, chart personally reviewed. Agree with resident's history and physical, assessment, plan with following comments: THEATRICAL AGENT: Patient follows commands, Pulmonary: Acceptable oxygenation and ventilation and she was extubated successfully to the nasal cannula. Cardiovascular: Blood pressure has improved and patient off vasopressors GI: Nutrition per dietary and GI prophylaxis per routine Heme: DVT prophylaxis per routine ID: Continue antibiotics and plan to de-escalation Renal; urine out put and renal funtion reviewed Endorcine: blood glucose is monitored Lines: all lines checked and no evidence of infections Skin: skin care to prevent pressure ulcers per nursing routine care Overall prognosis is very poor and palliative care follow-up. CODE STATUS has changed.
--- NOTE | 2016-12-11 14:15 | Palliative Progress Note ---
Date of Encounter: 12/11/16 Time of Encounter: 14:05 - Assessment and plan (1) Generalized pain Current Visit: Yes Status: Acute Assessment and plan: Fentanyl drip was discontinued with extubation and pt has Fentanyl IVP PRN. Has not utilized as of yet. Monitor (2) Dyspnea Current Visit: Yes Status: Acute Assessment and plan: Continues with oxygen support, iV atb, bronchodilators. Qualifiers: Dyspnea type: unspecified Qualified Code(s): R06.00 - Dyspnea, unspecified (3) Counseling regarding advanced care planning and goals of care Current Visit: Yes Status: Acute Assessment and plan: Patient became agitated with questions, kept stating "I know I'm sick". No family is present. Oncology/Radiation Oncology consultations noted. Patient will require f/u with Cancer [facility] after treatment for pneumonia, for eval if she is candidate for treatment. No family at hospital today, son was here early am after work, he told staff he would be around longer tomorrow. Will plan on meeting with him. With her overall condition, and frequent infections, concerned over decreasing performance status and how she would tolerate treatment. 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 Current Visit: No Status: Chronic (5) Acute respiratory failure Current Visit: Yes Status: Acute Qualifiers: Respiratory failure complication: hypoxia and hypercapnia Qualified Code(s) : J96.01 - Acute respiratory failure with hypoxia; J96.02 - Acute respiratory failure with hypercapnia (6) RLL pneumonia Current Visit: Yes Status: Acute Qualifiers: Pneumonia type: due to unspecified organism Qualified Code(s): J18.1 - Lobar pneumonia, unspecified organism - Time Spent With Patient Total time spent is greater than 50% in coordination of care (as documented) at patient's floor/unit and/or counseling patient: - Subjective Interval history: Patient was extubated this am. She is alert and answers few simple questions. Very [place]. Denies pain at present. C/o "little short of breath". She becomes agitated with much questioning. No family present - Constitutional Vitals: Abnormal lab results WBC 23.6 K/mcL (4.3-11.1) H 12/11/16 05:20 RBC 3.31 M/mcL (3.82-4.97) L 12/11/16 05:20 Hgb 8.0 g/dL (11.5-15.4) L 12/11/16 05:20 Hct 28.2 % (35.3-44.9) L 12/11/16 05:20 MCH 24.2 pg (28.0-33.3) L 12/11/16 05:20 MCHC 28.4 g/dL (31.6-35.5) L 12/11/16 05:20 RDW 16.7 % (11.5-14.5) H 12/11/16 05:20 Plt Count 428 K/mcL (140-400) H 12/11/16 05:20 Neutrophils # 21.8 K/mcL (1.6-8.9) H 12/11/16 05:20 Platelet Estimate Increased (Normal) H 12/11/16 05:20 Large Platelets Present (Not Present) A 12/11/16 05:20 Polychromasia 1+ (Not Present) A 12/10/16 00:16 Hypochromasia Present (Not Present) A 12/11/16 05:20 Anisocytosis 1+ (Not Present) A 12/11/16 05:20 Macrocytosis Present (Not Present) A 12/11/16 05:20 PT 13.0 Seconds (9.4-12.1) H 12/10/16 00:16 ABG pO2 59 mmHg (85-104) L 12/11/16 04:50 ABG Total CO2 26.7 mEq/L (20-26) H 12/11/16 04:50 ABG O2 Saturation 90 % (95-98) L 12/11/16 04:50 Sodium 134 mEq/L (136-145) L 12/11/16 05:20 BUN 25 mg/dL (7-20) H 12/11/16 05:20 BUN/Creatinine Ratio 28 (6-26) H 12/11/16 05:20 Glucose 313 mg/dL (70-99) H 12/11/16 05:20 POC Glucose 188 (58-89) H 12/11/16 11:20 Calcium 8.2 mg/dL (8.6-10.8) L 12/11/16 05:20 Alkaline Phosphatase 165 Units/L (38-126) H 12/11/16 05:20 Creatine Kinase < 7 Units/L (29-168) L 12/10/16 00:16 B-Natriuretic Peptide 272 pg/mL (0-100) H 12/10/16 00:16 Serum Total Protein 5.6 g/dL (6.0-8.3) L 12/11/16 05:20 Albumin 1.7 g/dL (3.5-5.0) L 12/11/16 05:20 Globulin 3.9 g/dL (2.4-3.5) H 12/11/16 05:20 Albumin/Globulin Ratio 0.4 (1.1-2.2) L 12/11/16 05:20 Urine Clarity Turbid (Clear) A 12/10/16 09:23 Ur Specific [place] 1.027 (1.010-1.025) H 12/10/16 09:23 Urine Protein 100 mg/dL (Neg-Trace) H 12/10/16 09:23 Urine Ketones Trace mg/dL (Negative) H 12/10/16 09:23 Urine Blood Small (Negative) H 12/10/16 09:23 Urine Bilirubin Small (Negative) H 12/10/16 09:23 Ur Leukocyte Esterase Large (Negative) H 12/10/16 09:23 Urine Microscopic RBC 5-15 per hpf (0-3) H 12/10/16 09:23 Urine Microscopic WBC 50-100 per hpf (0-3) H 12/10/16 09:23 Ur Squamous Epith Cells Moderate per lpf (None-Few) H 12/10/16 09:23 Urine Bacteria Many per hpf (None-Few) H 12/10/16 09:23 Ur Culture Indicated? YES (NO) A 12/10/16 09:23 General appearance: Present: no acute distress - Respiratory Respiratory exam: Present: decreased breath sounds, CTAB Additional comments: Few scattered rhonchi - Cardiovascular Cardiovascular exam: Present: irregular rhythm - GI/Abdominal GI/Abdominal exam: Present: diminished bowel sounds, soft - Extremities Exam Additional comments: Generalized edema to upper extremities. Bilateral feet cool and purplish - Neurological Exam Neurological exam: Present: alert Additional comments: Oriented to name and place. - Skin Skin exam: Present: dry, pallor, warm Palliative Quality Palliative Quality: Screen for Code Status: Yes, Screen for Goals of Care: NA, Screen for Pain: NA, If Pain Regimen Started, Initiate Bowel Regimen: NA, Screen for Nausea/Vomitting: NA - Labs CBC & Chem 7: 12/11/16 05:20 12/11/16 05:20 Labs: Laboratory Results - last 24 hr 12/10/16 12/10/16 12/10/16 07:21 11:35 15:38 WBC RBC Hgb Hct MCV MCH MCHC RDW Plt Count MPV Immature Gran % Seg Neutrophils % Lymphocytes % Monocytes % Eosinophils % Basophils % Neutrophils # Lymphocytes # Monocytes # Eosinophils # Basophils # Platelet Estimate Large Platelets Hypochromasia Anisocytosis Macrocytosis ABG pH ABG pCO2 ABG pO2 ABG HCO3 ABG Total CO2 ABG O2 Saturation ABG Base Excess Blood Gas Modality Inspired O2 Sodium Potassium Chloride Carbon Dioxide BUN Creatinine Est GFR ( Amer) Est GFR (Non-Af Amer) BUN/Creatinine Ratio Glucose POC Glucose 337 H 318 H Calculated Osmolality Calcium Total Bilirubin AST ALT Alkaline Phosphatase Serum Total Protein Albumin Globulin Albumin/Globulin Ratio Urine Osmolality 440 Urine Sodium < 20.0 12/10/16 12/10/16 12/10/16 18:18 19:48 23:17 WBC RBC Hgb Hct MCV MCH MCHC RDW Plt Count MPV Immature Gran % Seg Neutrophils % Lymphocytes % Monocytes % Eosinophils % Basophils % Neutrophils # Lymphocytes # Monocytes # Eosinophils # Basophils # Platelet Estimate Large Platelets Hypochromasia Anisocytosis Macrocytosis ABG pH ABG pCO2 ABG pO2 ABG HCO3 ABG Total CO2 ABG O2 Saturation ABG Base Excess Blood Gas Modality Inspired O2 Sodium Potassium Chloride Carbon Dioxide BUN Creatinine Est GFR ( Amer) Est GFR (Non-Af Amer) BUN/Creatinine Ratio Glucose POC Glucose 140 H 147 H 122 H Calculated Osmolality Calcium Total Bilirubin AST ALT Alkaline Phosphatase Serum Total Protein Albumin Globulin Albumin/Globulin Ratio Urine Osmolality Urine Sodium 12/11/16 12/11/16 12/11/16 04:12 04:50 05:20 WBC 23.6 H RBC 3.31 L Hgb 8.0 L Hct 28.2 L MCV 85.2 MCH 24.2 L MCHC 28.4 L RDW 16.7 H Plt Count 428 H MPV 10.4 Immature Gran % 1.1 Seg Neutrophils % 92.4 Lymphocytes % 3.7 Monocytes % 2.7 Eosinophils % 0.0 Basophils % 0.1 Neutrophils # 21.8 H Lymphocytes # 0.9 Monocytes # 0.6 Eosinophils # 0.0 Basophils # 0.0 Platelet Estimate Increased H Large Platelets Present A Hypochromasia Present A Anisocytosis 1+ A Macrocytosis Present A ABG pH 7.38 ABG pCO2 43 ABG pO2 59 L ABG HCO3 25.4 ABG Total CO2 26.7 H ABG O2 Saturation 90 L ABG Base Excess 0.2 Blood Gas Modality VC+ Inspired O2 30 Sodium Potassium Chloride Carbon Dioxide BUN Creatinine Est GFR ( Amer) Est GFR (Non-Af Amer) BUN/Creatinine Ratio Glucose POC Glucose 320 H Calculated Osmolality Calcium Total Bilirubin AST ALT Alkaline Phosphatase Serum Total Protein Albumin Globulin Albumin/Globulin Ratio Urine Osmolality Urine Sodium 12/11/16 12/11/16 12/11/16 05:20 07:27 11:20 WBC RBC Hgb Hct MCV MCH MCHC RDW Plt Count MPV Immature Gran % Seg Neutrophils % Lymphocytes % Monocytes % Eosinophils % Basophils % Neutrophils # Lymphocytes # Monocytes # Eosinophils # Basophils # Platelet Estimate Large Platelets Hypochromasia Anisocytosis Macrocytosis ABG pH ABG pCO2 ABG pO2 ABG HCO3 ABG Total CO2 ABG O2 Saturation ABG Base Excess Blood Gas Modality Inspired O2 Sodium 134 L Potassium 3.6 D Chloride 101 Carbon Dioxide 26 BUN 25 H Creatinine 0.90 Est GFR ( Amer) > 60 Est GFR (Non-Af Amer) > 60 BUN/Creatinine Ratio 28 H Glucose 313 H POC Glucose 275 H 188 H Calculated Osmolality 294 Calcium 8.2 L Total Bilirubin < 0.3 AST 31 ALT 21 Alkaline Phosphatase 165 H Serum Total Protein 5.6 L Albumin 1.7 L Globulin 3.9 H Albumin/Globulin Ratio 0.4 L Urine Osmolality Urine Sodium - Impressions Impressions Head CT 12/10/16 14:00 IMPRESSION: 1. No acute intracranial abnormality or evidence of abnormal enhancement. 2. Bilateral mastoid air cell and middle and airspace effusions. Right sphenoid sinus effusion D/ / Gregg Hernandez MD / Gregg Hernandez MD Interpreting Provider: Gregg Hernandez MD - ABG Interpretation ABG results: ABG ABG pH 7.38 pH Units (7.32-7.45) 12/11/16 04:50 ABG pCO2 43 mmHg (35-45) 12/11/16 04:50 ABG pO2 59 mmHg (85-104) L 12/11/16 04:50 ABG O2 Saturation 90 % (95-98) L 12/11/16 04:50 PT/INR, D-dimer PT 13.0 Seconds (9.4-12.1) H 12/10/16 00:16 Consult Discharge Plan - Plan Referrals: NONE,PCP [Primary Care Provider] -
[2016-12-11] MEDS: *HR* Dextrose 50 % in Water (Syg) 50 ML SYRINGE IVP PRN ×2 (15:48→19:59)
[2016-12-11] MEDS: *HR* Metoprolol 5 MG/5 ML VIAL IVP SCH (17:04)
[2016-12-12] MEDS: *HR* Dextrose 50 % in Water (Syg) 50 ML SYRINGE IVP PRN (00:18)
[2016-12-12] MEDS: Piperacillin/Tazobactam 3.375 GM in D5% in Water (Mini-Bag+) 100 ML IVPB SCH ×3 (00:18→16:18)
[2016-12-12] MEDS: *HR* Metoprolol 5 MG/5 ML VIAL IVP SCH ×2 (00:19→06:09)
[2016-12-12] MEDS: Lacri-Lube 3.5 GM TUBE BOTH EYES SCH ×2 (03:08→08:21)
[2016-12-12] MEDS: Ipratropium/Albuterol Neb 3 ML IH SCH ×4 (03:59→22:18)
[2016-12-12] MEDS: Norepinephrine 4 MG in D5% in Water 250 ML IVC SCH (04:56)
[2016-12-12] MEDS: Azithromycin 500 MG in D5% in Water 250 ML IVPB SCH (04:57)
[2016-12-12] MEDS: Vancomycin 1,500 MG in D5% in Water 250 ML IVPB SCH (04:57)
[2016-12-12] MEDS: *HR* Enoxaparin 40 MG/0.4 ML SYRINGE SQ SCH (04:58)
[2016-12-12] MEDS: Pantoprazole 40 MG VIAL IVPB SCH (04:58)
[2016-12-12] MEDS: 0.9 % Sodium Chloride 1,000 ML IVC SCH (06:09)
[2016-12-12] MEDS: Chlorhexidine Rinse 15 ML MOUTHWASH MM SCH (08:20)
[2016-12-12] MEDS ORDERED: Heparin 25,000 UNIT/500 ML D5W 25,000 UNIT/500 ML MLS IVC SCH (08:45)
[2016-12-12 09:25] LABS: Basophils % 0.1 %; Eosinophils % 0.1 %; Lymphocytes % 6.5 %; Red Cell Distribution Width 16.8 % (11.5-14.5)
[2016-12-12 09:27] LABS: Hematocrit 28.4 % (35.3-44.9); Hemoglobin 8.2 g/dL (11.5-15.4); Immature Granulocytes % 1.3 % (0-4); Lymphocytes # 1.5 K/mcL (0.6-4.6); Mean Corpuscular HGB Conc 28.9 g/dL (31.6-35.5); Mean Corpuscular Hemoglobin 25.1 pg (28.0-33.3); Mean Corpuscular Volume 86.9 fL (83.0-100.0); Mean Platelet Volume 9.9 fL (9.4-12.4); Monocytes # 1.5 K/mcL (0.0-1.3); Monocytes % 6.5 %; Neutrophils # 19.5 K/mcL (1.6-8.9); Platelet Count 432 K/mcL (140-400); Red Blood Count 3.27 M/mcL (3.82-4.97); Segmented Neutrophils % 85.5 %
--- NOTE | 2016-12-12 09:28 | Palliative Progress Note ---
Date of Encounter: 12/12/16 Time of Encounter: 09:25 - Assessment and plan (1) Generalized pain Current Visit: Yes Status: Acute Assessment and plan: Has Fentanyl IVP if needed. Has not utilized. Monitor. Once cleared for diet, change to po medication PRN for pain. Does not appear she was requiring pain medication at [facility]. (2) Dyspnea Current Visit: Yes Status: Acute Assessment and plan: Improved at present. Continue treatment for pneumonia. Monitor. Sao2 low 90' s at present Qualifiers: Dyspnea type: unspecified Qualified Code(s): R06.00 - Dyspnea, unspecified (3) Counseling regarding advanced care planning and goals of care Current Visit: Yes Status: Acute Assessment and plan: Patient awake and alert - answering questions. Oncology note reviewed. BRAF + and is candidate for targeted therapy for malignant melanoma. She does become short with much questioning. She does desire to be intubated again for resp distress if needed. Code status remains DNRCC-Arrest. Will hopefully touch base with family today 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 Current Visit: No Status: Chronic (5) Acute respiratory failure Current Visit: Yes Status: Acute Qualifiers: Respiratory failure complication: hypoxia and hypercapnia Qualified Code(s) : J96.01 - Acute respiratory failure with hypoxia; J96.02 - Acute respiratory failure with hypercapnia (6) RLL pneumonia Current Visit: Yes Status: Acute Qualifiers: Pneumonia type: due to unspecified organism Qualified Code(s): J18.1 - Lobar pneumonia, unspecified organism - Time Spent With Patient Total time spent is greater than 50% in coordination of care (as documented) at patient's floor/unit and/or counseling patient: 25 - 35 minutes - Subjective Interval history: Patient awake and alert. Oriented to name and place. Denies any pain or discomfort. States breathing is "ok". No acute events overnight. No family present. - Constitutional Vitals: Abnormal lab results WBC 23.6 K/mcL (4.3-11.1) H 12/11/16 05:20 RBC 3.31 M/mcL (3.82-4.97) L 12/11/16 05:20 Hgb 8.0 g/dL (11.5-15.4) L 12/11/16 05:20 Hct 28.2 % (35.3-44.9) L 12/11/16 05:20 MCH 24.2 pg (28.0-33.3) L 12/11/16 05:20 MCHC 28.4 g/dL (31.6-35.5) L 12/11/16 05:20 RDW 16.7 % (11.5-14.5) H 12/11/16 05:20 Plt Count 428 K/mcL (140-400) H 12/11/16 05:20 Neutrophils # 21.8 K/mcL (1.6-8.9) H 12/11/16 05:20 Platelet Estimate Increased (Normal) H 12/11/16 05:20 Large Platelets Present (Not Present) A 12/11/16 05:20 Polychromasia 1+ (Not Present) A 12/10/16 00:16 Hypochromasia Present (Not Present) A 12/11/16 05:20 Anisocytosis 1+ (Not Present) A 12/11/16 05:20 Macrocytosis Present (Not Present) A 12/11/16 05:20 PT 13.0 Seconds (9.4-12.1) H 12/10/16 00:16 ABG pO2 59 mmHg (85-104) L 12/11/16 04:50 ABG Total CO2 26.7 mEq/L (20-26) H 12/11/16 04:50 ABG O2 Saturation 90 % (95-98) L 12/11/16 04:50 Sodium 134 mEq/L (136-145) L 12/11/16 05:20 BUN 25 mg/dL (7-20) H 12/11/16 05:20 BUN/Creatinine Ratio 28 (6-26) H 12/11/16 05:20 Glucose 313 mg/dL (70-99) H 12/11/16 05:20 POC Glucose 137 (58-89) H 12/12/16 07:23 Calcium 8.2 mg/dL (8.6-10.8) L 12/11/16 05:20 Alkaline Phosphatase 165 Units/L (38-126) H 12/11/16 05:20 Creatine Kinase < 7 Units/L (29-168) L 12/10/16 00:16 B-Natriuretic Peptide 272 pg/mL (0-100) H 12/10/16 00:16 Serum Total Protein 5.6 g/dL (6.0-8.3) L 12/11/16 05:20 Albumin 1.7 g/dL (3.5-5.0) L 12/11/16 05:20 Globulin 3.9 g/dL (2.4-3.5) H 12/11/16 05:20 Albumin/Globulin Ratio 0.4 (1.1-2.2) L 12/11/16 05:20 Urine Clarity Turbid (Clear) A 12/10/16 09:23 Ur Specific [place] 1.027 (1.010-1.025) H 12/10/16 09:23 Urine Protein 100 mg/dL (Neg-Trace) H 12/10/16 09:23 Urine Ketones Trace mg/dL (Negative) H 12/10/16 09:23 Urine Blood Small (Negative) H 12/10/16 09:23 Urine Bilirubin Small (Negative) H 12/10/16 09:23 Ur Leukocyte Esterase Large (Negative) H 12/10/16 09:23 Urine Microscopic RBC 5-15 per hpf (0-3) H 12/10/16 09:23 Urine Microscopic WBC 50-100 per hpf (0-3) H 12/10/16 09:23 Ur Squamous Epith Cells Moderate per lpf (None-Few) H 12/10/16 09:23 Urine Bacteria Many per hpf (None-Few) H 12/10/16 09:23 Ur Culture Indicated? YES (NO) A 12/10/16 09:23 General appearance: Present: no acute distress - Respiratory Respiratory exam: Present: decreased breath sounds, CTAB - Cardiovascular Cardiovascular exam: Present: irregular rhythm Additional comments: rate in 60's on monitor - GI/Abdominal GI/Abdominal exam: Present: normal bowel sounds, soft - Extremities Exam Additional comments: generalized edema to upper extremities 2-3+. Lower extremities with yellowish plaque like lesions, bilateral feet purplish discoloration and cool to touch. - Neurological Exam Neurological exam: Present: alert Additional comments: Oriented to name and place generalized weakness - Skin Additional comments: Dressing to back melanoma lesion Palliative Quality Palliative Quality: Screen for Code Status: Yes, Screen for Goals of Care: NA, Screen for Pain: NA, If Pain Regimen Started, Initiate Bowel Regimen: NA, Screen for Nausea/Vomitting: NA - Labs CBC & Chem 7: 12/12/16 09:15 12/11/16 05:20 Labs: Laboratory Results - last 24 hr 12/11/16 12/11/16 12/11/16 11:20 15:43 15:45 POC Glucose 188 H 31 L* 32 L* 12/11/16 12/11/16 12/11/16 16:17 19:53 19:54 POC Glucose 106 H 50 L 47 L* 12/11/16 12/11/16 12/12/16 19:57 21:03 00:08 POC Glucose 45 L* 104 H 55 L 12/12/16 12/12/16 12/12/16 00:50 04:07 07:23 POC Glucose 138 H 150 H 137 H - ABG Interpretation ABG results: ABG ABG pH 7.38 pH Units (7.32-7.45) 12/11/16 04:50 ABG pCO2 43 mmHg (35-45) 12/11/16 04:50 ABG pO2 59 mmHg (85-104) L 12/11/16 04:50 ABG O2 Saturation 90 % (95-98) L 12/11/16 04:50 PT/INR, D-dimer PT 13.0 Seconds (9.4-12.1) H 12/10/16 00:16 Consult Discharge Plan - Plan Referrals: NONE,PCP [Primary Care Provider] -
[2016-12-12 09:30] LABS: INR 1.2; Prothrombin Time 13.5 Seconds (9.4-12.1)
[2016-12-12 09:33] LABS: Activated Partial Thrombo Time 32.1 Seconds (26.0-36.0)
[2016-12-12 09:39] LABS: Alanine Aminotransferase 20 Units/L (0-55); Albumin 1.8 g/dL (3.5-5.0); Albumin/Globulin Ratio 0.5 (1.1-2.2); Alkaline Phosphatase 159 Units/L (38-126); Aspartate Amino Transferase 18 Units/L (5-34); BUN/Creatinine Ratio 28 (6-26); Blood Urea Nitrogen 21 mg/dL (7-20); Calcium 8.6 mg/dL (8.6-10.8); Carbon Dioxide 29 mEq/L (19-29); Chloride 107 mEq/L (98-109); Globulin 3.5 g/dL (2.4-3.5); Glucose 143 mg/dL (70-99); Osmolality,Calculated 299 (280-300); Potassium 3.4 mEq/L (3.5-4.5); Sodium 142 mEq/L (136-145); Total Protein 5.3 g/dL (6.0-8.3); eGFR For African Americans > 60 (> 60); eGFR For Non-African Americans > 60 (> 60)
[2016-12-12 09:43] LABS: Hypochromasia Present (Not Present); Polychromasia 1+ (Not Present)
[2016-12-12 09:44] LABS: Platelet Estimate Increased (Normal)
[2016-12-12 10:05] LABS: Bilirubin,Total < 0.3 mg/dL (0.2-1.2)
[2016-12-12] MEDS ORDERED: Magnesium Sulfate 2 GM in D5% in Water 100 ML IVPB PRN (10:52)
[2016-12-12] MEDS ORDERED: Calcium Gluconate 1,000 MG in D5% in Water 100 ML IVPB PRN (10:52)
[2016-12-12] MEDS ORDERED: Potassium Phosphate 44 MEQ in 0.9 % Sodium Chloride 250 ML IVPB PRN (10:52)
--- NOTE | 2016-12-12 10:54 | Oncology Inp Progress Note ---
Date of Encounter: 12/12/16 Time of Encounter: 10:52 (1) 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 Current Visit: No Status: Chronic Assessment and plan: - Still recovering from RLL PNA with persistent leucocytosis. Her tumor was POSITIVE for BRAF mutation; this would make her eligible for target therapy either with BRAF inhibitors as single agent or in combination with MEK inhibitors ( eg, Dabrafenib +- Trametinib ); both are oral therapies, but at this time in view that she is still recovering from PNA I would not recommend. She will need to follow up with her outpatient oncologist Dr. Tim shortly after discharge to discuss the appropriate time to start target therapy. (2) Respiratory failure with hypoxia and hypercapnia Current Visit: Yes Status: Acute Assessment and plan: - Improving, now extubated. I appreciate excellent care of ICU team. . 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 She has declined the recommendation for a bone marrow biopsy in the past. Oncology: Subj Interval history: CC: shortness of breath. "I feel lousy". still complaints of shortness of breath, experiencing intermittent cough during the visit. ROS: positive for cough, SOB. - Constitutional Vitals: Vital Signs Temp Pulse Resp BP Pulse Ox 12/12/16 09:40 18 96 12/12/16 09:00 86 18 104/74 96 12/12/16 08:00 89 16 107/71 98 12/12/16 07:20 97.6 F 12/12/16 07:00 89 12/12/16 06:00 89 19 98/69 94 12/12/16 05:00 86 20 97/54 95 12/12/16 04:00 97.2 F L 93 20 101/37 97 12/12/16 03:00 83 17 93/46 100 12/12/16 02:00 93 14 98/61 100 12/12/16 01:00 87 18 91/63 99 12/12/16 00:10 97.1 F L 12/12/16 00:00 95 18 109/78 100 12/11/16 23:00 105 20 93/50 98 12/11/16 22:00 79 20 97/67 96 12/11/16 21:35 18 123 12/11/16 21:00 74 20 112/60 95 12/11/16 20:00 109 18 108/97 97 12/11/16 19:50 97.0 F L 12/11/16 19:00 100 20 102/69 100 12/11/16 18:00 110 18 104/70 100 12/11/16 17:00 88 18 92/58 99 12/11/16 16:00 85 20 94/58 99 12/11/16 15:54 97.6 F 12/11/16 15:36 18 100 12/11/16 15:35 84 12/11/16 15:00 84 18 108/60 99 12/11/16 14:00 95 20 103/80 96 12/11/16 13:00 105 18 116/101 95 12/11/16 12:00 138 18 117/98 95 12/11/16 11:16 20 100 12/11/16 11:10 98 12/11/16 11:00 96.8 F L 100 20 117/75 100 Intake and Output 12/11/16 12/12/16 12/12/16 23:59 07:59 15:59 Intake Total 1100 / 1100 1600 / 1600 Output Total 400 / 400 500 / 500 Balance 700 / 700 1100 / 1100 Intake: IV Fluids 1100 / 1100 1600 / 1600 0.9 % Sodium Chloride 1, 1000 / 1000 1000 / 1000 000 ML @ 100 mls/hr IVC . Q10H [facility] Rx#:[id number] Zithromax 500 mg In 250 / 250 Dextrose 5% 250 ML @ 252 mls/hr IVPB Q24H SOFI[facility] Rx#: [id number] Zosyn 3.375 GM In 100 / 100 100 / 100 Dextrose 5% (Minibag+) 100 ML 100 ML @ 25 mls/hr IVPB Q8HR [facility] Rx#: [id number] Vancocin 1,500 MG In 250 / 250 Dextrose 5% 250 ML @ 166. 667 mls/hr IVPB Q24H [facility]FI[facility] Rx#:[id number] Output: Catheter 400 / 400 500 / 500 Other: Weight 98.7 kg Blood Glucose* 104 137 Patient Weight 12/12/16 23:59 Weight 98.7 kg - Head Head exam: Present: normal inspection - Neck Neck exam: Present: normal inspection - Respiratory Respiratory exam: Present: accessory muscle use, CTAB - Cardiovascular Cardiovascular exam: Present: +S1 - GI/Abdominal GI/Abdominal exam: Present: normal bowel sounds Oncology: Obj Data - Labs CBC & Chem 7: 12/12/16 09:15 12/12/16 09:15 Labs: Laboratory Results - last 24 hr 12/11/16 12/11/16 12/11/16 11:20 15:43 15:45 WBC RBC Hgb Hct MCV MCH MCHC RDW Plt Count MPV Immature Gran % Seg Neutrophils % Lymphocytes % Monocytes % Eosinophils % Basophils % Neutrophils # Lymphocytes # Monocytes # Eosinophils # Basophils # Platelet Estimate Polychromasia Hypochromasia PT INR APTT Sodium Potassium Chloride Carbon Dioxide BUN Creatinine Est GFR ( Amer) Est GFR (Non-Af Amer) BUN/Creatinine Ratio Glucose POC Glucose 188 H 31 L* 32 L* Calculated Osmolality Calcium Total Bilirubin AST ALT Alkaline Phosphatase Serum Total Protein Albumin Globulin Albumin/Globulin Ratio 12/11/16 12/11/16 12/11/16 16:17 19:53 19:54 WBC RBC Hgb Hct MCV MCH MCHC RDW Plt Count MPV Immature Gran % Seg Neutrophils % Lymphocytes % Monocytes % Eosinophils % Basophils % Neutrophils # Lymphocytes # Monocytes # Eosinophils # Basophils # Platelet Estimate Polychromasia Hypochromasia PT INR APTT Sodium Potassium Chloride Carbon Dioxide BUN Creatinine Est GFR ( Amer) Est GFR (Non-Af Amer) BUN/Creatinine Ratio Glucose POC Glucose 106 H 50 L 47 L* Calculated Osmolality Calcium Total Bilirubin AST ALT Alkaline Phosphatase Serum Total Protein Albumin Globulin Albumin/Globulin Ratio 12/11/16 12/11/16 12/12/16 19:57 21:03 00:08 WBC RBC Hgb Hct MCV MCH MCHC RDW Plt Count MPV Immature Gran % Seg Neutrophils % Lymphocytes % Monocytes % Eosinophils % Basophils % Neutrophils # Lymphocytes # Monocytes # Eosinophils # Basophils # Platelet Estimate Polychromasia Hypochromasia PT INR APTT Sodium Potassium Chloride Carbon Dioxide BUN Creatinine Est GFR ( Amer) Est GFR (Non-Af Amer) BUN/Creatinine Ratio Glucose POC Glucose 45 L* 104 H 55 L Calculated Osmolality Calcium Total Bilirubin AST ALT Alkaline Phosphatase Serum Total Protein Albumin Globulin Albumin/Globulin Ratio 12/12/16 12/12/16 12/12/16 00:50 04:07 07:23 WBC RBC Hgb Hct MCV MCH MCHC RDW Plt Count MPV Immature Gran % Seg Neutrophils % Lymphocytes % Monocytes % Eosinophils % Basophils % Neutrophils # Lymphocytes # Monocytes # Eosinophils # Basophils # Platelet Estimate Polychromasia Hypochromasia PT INR APTT Sodium Potassium Chloride Carbon Dioxide BUN Creatinine Est GFR ( Amer) Est GFR (Non-Af Amer) BUN/Creatinine Ratio Glucose POC Glucose 138 H 150 H 137 H Calculated Osmolality Calcium Total Bilirubin AST ALT Alkaline Phosphatase Serum Total Protein Albumin Globulin Albumin/Globulin Ratio 12/12/16 12/12/16 12/12/16 09:15 09:15 09:15 WBC 22.8 H RBC 3.27 L Hgb 8.2 L Hct 28.4 L MCV 86.9 MCH 25.1 L MCHC 28.9 L RDW 16.8 H Plt Count 432 H MPV 9.9 Immature Gran % 1.3 Seg Neutrophils % 85.5 Lymphocytes % 6.5 Monocytes % 6.5 Eosinophils % 0.1 Basophils % 0.1 Neutrophils # 19.5 H Lymphocytes # 1.5 Monocytes # 1.5 H Eosinophils # 0.0 Basophils # 0.0 Platelet Estimate Increased H Polychromasia 1+ A Hypochromasia Present A PT 13.5 H INR 1.2 APTT 32.1 Sodium 142 D Potassium 3.4 L Chloride 107 Carbon Dioxide 29 BUN 21 H Creatinine 0.76 Est GFR ( Amer) > 60 Est GFR (Non-Af Amer) > 60 BUN/Creatinine Ratio 28 H Glucose 143 H POC Glucose Calculated Osmolality 299 Calcium 8.6 Total Bilirubin < 0.3 AST 18 ALT 20 Alkaline Phosphatase 159 H Serum Total Protein 5.3 L Albumin 1.8 L Globulin 3.5 Albumin/Globulin Ratio 0.5 L - ABG Interpretation ABG results: ABG ABG pH 7.38 pH Units (7.32-7.45) 12/11/16 04:50 ABG pCO2 43 mmHg (35-45) 12/11/16 04:50 ABG pO2 59 mmHg (85-104) L 12/11/16 04:50 ABG O2 Saturation 90 % (95-98) L 12/11/16 04:50 PT/INR, D-dimer PT 13.5 Seconds (9.4-12.1) H 12/12/16 09:15 Consult Discharge Plan - Plan Referrals: NONE,PCP [Primary Care Provider] -
[2016-12-12] MEDS ORDERED: Dexmedetomidine HCl 400 MCG/100 ML MLS IVC SCH (11:30)
--- NOTE | 2016-12-12 11:39 | Pulmonology Progress Note ---
<Aleksandr Kumar - Last Filed: 12/12/16 11:48> Date of Encounter: 12/12/16 Time of Encounter: 07:15 Assessment and Plan (1) Respiratory failure with hypoxia and hypercapnia Current Visit: Yes Status: Acute Patient is doing well on 3 L of oxygen via nasal cannula. She is mentating well which is an improvement from the past couple days. We will continue to wean her off the oxygen moving forward. Qualifiers: Chronicity: acute Qualified Code(s): J96.01 - Acute respiratory failure with hypoxia; J96.02 - Acute respiratory failure with hypercapnia (2) RLL pneumonia Current Visit: Yes Status: Acute Her leukocytosis has improved slightly to 22.8. We have taken her off the vancomycin and azithromycin. We will continue Zosyn to manage her hospital- acquired pneumonia. Her blood pressure has remained stable. Clinically, I think she is improving significantly from her pneumonia. (3) Atrial fibrillation with RVR Current Visit: Yes Status: Acute She has been on 5 mg of Lopressor every 6. Her atrial fibrillation now has a rate of an average in the 110s. At this time, I will restart her home medications which is Lopressor 12.5 twice a day. If her rate does not drop, we will consider increasing this dose tomorrow. (4) Leukocytosis Current Visit: Yes Status: Acute See above Qualifiers: Leukocytosis type: unspecified Qualified Code(s): D72.829 - Elevated white blood cell count, unspecified (5) Malignant melanoma of lower back Current Visit: Yes Status: Acute This is being followed by general surgery and radiation oncology. (6) 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 Current Visit: No Status: Chronic This is followed and managed by oncology. (7) DVT prophylaxis Current Visit: Yes Status: Acute Patient is on enoxaparin 40 mg once daily. This patient does have a swollen, and warm right lower extremity. I have ordered a Doppler ultrasound of the right lower extremity of this patient to make sure she does not have a deep vein thrombosis. Subjective Principal diagnosis: Pneumonia, Malignant Melanoma, severe hypotenstion Interval history: Patient was successfully extubated yesterday and is tolerating 3 L of oxygen via nasal cannula well. Nurse states that she was alert and oriented and very pleasant today which is an improvement from yesterday. Patient states that she has no complaints at this time. Objective PUL Vital signs: Last Vital Signs Temp 97.6 F 12/12/16 07:20 Pulse 86 12/12/16 11:15 Resp 20 12/12/16 11:00 BP 77/65 12/12/16 11:00 Pulse Ox 96 12/12/16 11:00 General appearance: no acute distress, other (Appears comfortable on 3 L of oxygen via nasal cannula) Eyes: nonicteric ENT: oropharynx moist Neck: supple Effort: normal Cardiovascular: regular rate and rhythm Gastrointestinal: normoactive bowel sounds Integumentary: normal Extremities: no cyanosis, edema (Pending edema 1+ bilaterally.), other (Right lower extremity is more swollen and red than it was yesterday.) normal mental status, non-focal exam, pupils equal and round mood appropriate, affect normal Results - Laboratory Findings CBC and BMP: 12/12/16 09:15 12/12/16 09:15 ABG ABG pH 7.38 pH Units (7.32-7.45) 12/11/16 04:50 ABG pCO2 43 mmHg (35-45) 12/11/16 04:50 ABG pO2 59 mmHg (85-104) L 12/11/16 04:50 ABG O2 Saturation 90 % (95-98) L 12/11/16 04:50 PT/INR, D-dimer PT 13.5 Seconds (9.4-12.1) H 12/12/16 09:15 Abnormal lab findings: Abnormal lab results WBC 22.8 K/mcL (4.3-11.1) H 12/12/16 09:15 RBC 3.27 M/mcL (3.82-4.97) L 12/12/16 09:15 Hgb 8.2 g/dL (11.5-15.4) L 12/12/16 09:15 Hct 28.4 % (35.3-44.9) L 12/12/16 09:15 MCH 25.1 pg (28.0-33.3) L 12/12/16 09:15 MCHC 28.9 g/dL (31.6-35.5) L 12/12/16 09:15 RDW 16.8 % (11.5-14.5) H 12/12/16 09:15 Plt Count 432 K/mcL (140-400) H 12/12/16 09:15 Neutrophils # 19.5 K/mcL (1.6-8.9) H 12/12/16 09:15 Monocytes # 1.5 K/mcL (0.0-1.3) H 12/12/16 09:15 Platelet Estimate Increased (Normal) H 12/12/16 09:15 Large Platelets Present (Not Present) A 12/11/16 05:20 Polychromasia 1+ (Not Present) A 12/12/16 09:15 Hypochromasia Present (Not Present) A 12/12/16 09:15 Anisocytosis 1+ (Not Present) A 12/11/16 05:20 Macrocytosis Present (Not Present) A 12/11/16 05:20 PT 13.5 Seconds (9.4-12.1) H 12/12/16 09:15 ABG pO2 59 mmHg (85-104) L 12/11/16 04:50 ABG Total CO2 26.7 mEq/L (20-26) H 12/11/16 04:50 ABG O2 Saturation 90 % (95-98) L 12/11/16 04:50 Potassium 3.4 mEq/L (3.5-4.5) L 12/12/16 09:15 BUN 21 mg/dL (7-20) H 12/12/16 09:15 BUN/Creatinine Ratio 28 (6-26) H 12/12/16 09:15 Glucose 143 mg/dL (70-99) H 12/12/16 09:15 POC Glucose 149 (58-89) H 12/12/16 11:25 Alkaline Phosphatase 159 Units/L (38-126) H 12/12/16 09:15 Creatine Kinase < 7 Units/L (29-168) L 12/10/16 00:16 B-Natriuretic Peptide 272 pg/mL (0-100) H 12/10/16 00:16 Serum Total Protein 5.3 g/dL (6.0-8.3) L 12/12/16 09:15 Albumin 1.8 g/dL (3.5-5.0) L 12/12/16 09:15 Albumin/Globulin Ratio 0.5 (1.1-2.2) L 12/12/16 09:15 Urine Clarity Turbid (Clear) A 12/10/16 09:23 Ur Specific [place] 1.027 (1.010-1.025) H 12/10/16 09:23 Urine Protein 100 mg/dL (Neg-Trace) H 12/10/16 09:23 Urine Ketones Trace mg/dL (Negative) H 12/10/16 09:23 Urine Blood Small (Negative) H 12/10/16 09:23 Urine Bilirubin Small (Negative) H 12/10/16 09:23 Ur Leukocyte Esterase Large (Negative) H 12/10/16 09:23 Urine Microscopic RBC 5-15 per hpf (0-3) H 12/10/16 09:23 Urine Microscopic WBC 50-100 per hpf (0-3) H 12/10/16 09:23 Ur Squamous Epith Cells Moderate per lpf (None-Few) H 12/10/16 09:23 Urine Bacteria Many per hpf (None-Few) H 12/10/16 09:23 Ur Culture Indicated? YES (NO) A 12/10/16 09:23 - Microbiology Findings Microbiology Findings: Microbiology, Last 48 Hours 12/10/16 09:30 Sputum Culture - Final Sputum Haemophilus influenzae 12/10/16 09:23 Urine Culture - Final Urine,Clean Catch Escherichia coli - Clinical Findings Intake & Output: Intake & Output 12/11/16 12/12/16 12/12/16 23:59 07:59 15:59 Intake Total 1100 / 1100 1600 / 1600 50 / 50 Output Total 400 / 400 500 / 500 Balance 700 / 700 1100 / 1100 50 / 50 Weight 98.7 kg Consult Discharge Plan - Plan Referrals: NONE,PCP [Primary Care Provider] - <Ari Blanco - Last Filed: 12/12/16 13:18> Date of Encounter: 12/12/16 Objective PUL Vital signs: Last Vital Signs Temp 97.7 F 12/12/16 11:41 Pulse 103 12/12/16 12:00 Resp 20 12/12/16 12:00 BP 110/81 12/12/16 12:00 Pulse Ox 96 12/12/16 12:00 Results - Laboratory Findings CBC and BMP: 12/12/16 09:15 12/12/16 09:15 ABG ABG pH 7.38 pH Units (7.32-7.45) 12/11/16 04:50 ABG pCO2 43 mmHg (35-45) 12/11/16 04:50 ABG pO2 59 mmHg (85-104) L 12/11/16 04:50 ABG O2 Saturation 90 % (95-98) L 12/11/16 04:50 PT/INR, D-dimer PT 13.5 Seconds (9.4-12.1) H 12/12/16 09:15 Abnormal lab findings: Abnormal lab results WBC 22.8 K/mcL (4.3-11.1) H 12/12/16 09:15 RBC 3.27 M/mcL (3.82-4.97) L 12/12/16 09:15 Hgb 8.2 g/dL (11.5-15.4) L 12/12/16 09:15 Hct 28.4 % (35.3-44.9) L 12/12/16 09:15 MCH 25.1 pg (28.0-33.3) L 12/12/16 09:15 MCHC 28.9 g/dL (31.6-35.5) L 12/12/16 09:15 RDW 16.8 % (11.5-14.5) H 12/12/16 09:15 Plt Count 432 K/mcL (140-400) H 12/12/16 09:15 Neutrophils # 19.5 K/mcL (1.6-8.9) H 12/12/16 09:15 Monocytes # 1.5 K/mcL (0.0-1.3) H 12/12/16 09:15 Platelet Estimate Increased (Normal) H 12/12/16 09:15 Large Platelets Present (Not Present) A 12/11/16 05:20 Polychromasia 1+ (Not Present) A 12/12/16 09:15 Hypochromasia Present (Not Present) A 12/12/16 09:15 Anisocytosis 1+ (Not Present) A 12/11/16 05:20 Macrocytosis Present (Not Present) A 12/11/16 05:20 PT 13.5 Seconds (9.4-12.1) H 12/12/16 09:15 ABG pO2 59 mmHg (85-104) L 12/11/16 04:50 ABG Total CO2 26.7 mEq/L (20-26) H 12/11/16 04:50 ABG O2 Saturation 90 % (95-98) L 12/11/16 04:50 Potassium 3.4 mEq/L (3.5-4.5) L 12/12/16 09:15 BUN 21 mg/dL (7-20) H 12/12/16 09:15 BUN/Creatinine Ratio 28 (6-26) H 12/12/16 09:15 Glucose 143 mg/dL (70-99) H 12/12/16 09:15 POC Glucose 149 (58-89) H 12/12/16 11:25 Alkaline Phosphatase 159 Units/L (38-126) H 12/12/16 09:15 Creatine Kinase < 7 Units/L (29-168) L 12/10/16 00:16 B-Natriuretic Peptide 272 pg/mL (0-100) H 12/10/16 00:16 Serum Total Protein 5.3 g/dL (6.0-8.3) L 12/12/16 09:15 Albumin 1.8 g/dL (3.5-5.0) L 12/12/16 09:15 Albumin/Globulin Ratio 0.5 (1.1-2.2) L 12/12/16 09:15 Urine Clarity Turbid (Clear) A 12/10/16 09:23 Ur Specific [place] 1.027 (1.010-1.025) H 12/10/16 09:23 Urine Protein 100 mg/dL (Neg-Trace) H 12/10/16 09:23 Urine Ketones Trace mg/dL (Negative) H 12/10/16 09:23 Urine Blood Small (Negative) H 12/10/16 09:23 Urine Bilirubin Small (Negative) H 12/10/16 09:23 Ur Leukocyte Esterase Large (Negative) H 12/10/16 09:23 Urine Microscopic RBC 5-15 per hpf (0-3) H 12/10/16 09:23 Urine Microscopic WBC 50-100 per hpf (0-3) H 12/10/16 09:23 Ur Squamous Epith Cells Moderate per lpf (None-Few) H 12/10/16 09:23 Urine Bacteria Many per hpf (None-Few) H 12/10/16 09:23 Ur Culture Indicated? YES (NO) A 12/10/16 09:23 - Microbiology Findings Microbiology Findings: Microbiology, Last 48 Hours 12/10/16 09:30 Sputum Culture - Final Sputum Haemophilus influenzae 12/10/16 09:23 Urine Culture - Final Urine,Clean Catch Escherichia coli - Clinical Findings Intake & Output: Intake & Output 12/11/16 12/12/16 12/12/16 23:59 07:59 15:59 Intake Total 1100 / 1100 1600 / 1600 150 / 150 Output Total 400 / 400 500 / 500 275 / 275 Balance 700 / 700 1100 / 1100 -125 / -125 Weight 98.7 kg - Attending Attestation I examined this patient and my medical decision-making was reviewed with the Resident Physician. I agree with the documented findings, disposition and treatment plan as described except to the extent set forth below. Patient seen and examined. Labs, radiology, chart personally reviewed. Agree with resident's history and physical, assessment, plan with following comments: RESEARCH SCHOLAR: Patient follows commands, Pulmonary: Acceptable oxygenation and ventilation, however am still concerned about her respiratory status due to possible pneumonia and generalized weakness. Continue monitoring ICU for now and possible transfer out in a day or 2. Cardiovascular: stable GI: Nutrition per dietary and GI prophylaxis per routine. She may need swallow evaluation Heme: DVT prophylaxis per routine ID: Continue antibiotics and plan to de-escalation Renal; urine out put and renal funtion reviewed Endorcine: blood glucose is monitored Lines: all lines checked and no evidence of infections Skin: skin care to prevent pressure ulcers per nursing routine care Overall poor prognosis and appreciate palliative and oncologist input.
--- NOTE | 2016-12-12 20:54 | Event Note ---
Date of Encounter: 12/12/16 Time of Encounter: 20:52 LE doppler positive for RLE DVT. Patient was previously on Lovenox 40mg daily for prophylaxis. Will switch to lovenox 100mg q12h.
[2016-12-12] MEDS: *HR* Enoxaparin 100 MG/ML SYRINGE SQ SCH (21:28)
[2016-12-13] MEDS: Piperacillin/Tazobactam 3.375 GM in D5% in Water (Mini-Bag+) 100 ML IVPB SCH ×2 (00:18→09:09)
[2016-12-13 03:13] LABS: Basophils # 0.1 K/mcL (0.0-0.2); Basophils % 0.3 %; Eosinophils # 0.1 K/mcL (0.0-0.6); Eosinophils % 0.5 %; Hematocrit 28.1 % (35.3-44.9); Hemoglobin 7.8 g/dL (11.5-15.4); Immature Granulocytes % 2.6 % (0-4); Lymphocytes # 1.4 K/mcL (0.6-4.6); Lymphocytes % 7.1 %; Mean Corpuscular HGB Conc 27.8 g/dL (31.6-35.5); Mean Corpuscular Hemoglobin 23.8 pg (28.0-33.3); Mean Corpuscular Volume 85.7 fL (83.0-100.0); Mean Platelet Volume 10.2 fL (9.4-12.4); Monocytes % 7.9 %; Nucleated Red Blood Cells 0.2 /100 WBC (0); Platelet Count 332 K/mcL (140-400); Red Blood Count 3.28 M/mcL (3.82-4.97); Red Cell Distribution Width 17.1 % (11.5-14.5); Segmented Neutrophils % 81.6 %
[2016-12-13 03:25] LABS: BUN/Creatinine Ratio 25 (6-26); Blood Urea Nitrogen 21 mg/dL (7-20); Calcium 8.3 mg/dL (8.6-10.8); Carbon Dioxide 21 mEq/L (19-29); Chloride 115 mEq/L (98-109); Glucose 174 mg/dL (70-99); Osmolality,Calculated 303 (280-300); Sodium 143 mEq/L (136-145); eGFR For African Americans > 60 (> 60); eGFR For Non-African Americans > 60 (> 60)
[2016-12-13 03:27] LABS: Potassium 4.9 mEq/L (3.5-4.5)
[2016-12-13 03:38] LABS: Anisocytosis 1+ (Not Present); Hypochromasia Present (Not Present); Monocytes # 1.6 K/mcL (0.0-1.3); Platelet Clumps Few (Not Present); Platelet Estimate Normal (Normal)
[2016-12-13] MEDS: Ipratropium/Albuterol Neb 3 ML IH SCH ×4 (04:07→22:40)
[2016-12-13] MEDS: *HR* Enoxaparin 100 MG/ML SYRINGE SQ SCH ×2 (06:12→17:55)
[2016-12-13 09:16] LABS: Magnesium 1.7 mg/dL (1.6-2.6); Phosphorous 3.5 mg/dL (2.3-4.7)
--- NOTE | 2016-12-13 09:20 | Pulmonology Progress Note ---
<Aleksandr Kumar - Last Filed: 12/13/16 09:18> Date of Encounter: 12/13/16 Time of Encounter: 09:18 Assessment and Plan (1) Respiratory failure with hypoxia and hypercapnia Current Visit: Yes Status: Acute Patient is doing well on 3 L of oxygen via nasal cannula. She is mentating well which is an improvement from the past couple days. We will continue to wean her off the oxygen moving forward. I have spoke with the hospitalist today and he agreed to accept this patient. Qualifiers: Chronicity: acute Qualified Code(s): J96.01 - Acute respiratory failure with hypoxia; J96.02 - Acute respiratory failure with hypercapnia (2) RLL pneumonia Current Visit: Yes Status: Acute Her leukocytosis has improved slightly to 19.6. We will continue Zosyn to manage her hospital-acquired pneumonia. Her blood pressure has remained stable. Clinically, I think she is improving significantly from her pneumonia. (3) Atrial fibrillation with RVR Current Visit: Yes Status: Acute This patient has been started on 25 mg Lopressor twice a day. She is still in atrial fibrillation, but her heart rate is in the mid 80s. I will continue the same regimen of medication. (4) DVT (deep venous thrombosis) Current Visit: Yes Status: Acute Ultrasound of the right lower extremity was performed last night on this patient. The preliminary findings were that this patient has a deep vein thrombosis in her right mid thigh. We have started her on anticoagulation therapy with the enoxaparin. Qualifiers: DVT location: lower extremity Chronicity: acute Laterality: right Qualified Code(s): I82.401 - Acute embolism and thrombosis of unspecified deep veins of right lower extremity (5) Leukocytosis Current Visit: Yes Status: Acute See above Qualifiers: Leukocytosis type: unspecified Qualified Code(s): D72.829 - Elevated white blood cell count, unspecified (6) Malignant melanoma of lower back Current Visit: Yes Status: Acute This is being followed by general surgery and radiation oncology. 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 Subjective Principal diagnosis: Pneumonia, Malignant Melanoma, severe hypotenstion Interval history: Patient has a positive DVT study. There is a deep vein thrombosis in the right mid thigh. She was started on enoxaparin at a therapeutic dose. Patient has no complaints today. She had no other events overnight. Objective PUL Vital signs: Last Vital Signs Temp 97.4 F L 12/13/16 07:35 Pulse 92 12/13/16 06:14 Resp 24 12/13/16 06:14 BP 87/61 12/13/16 06:14 Pulse Ox 100 12/13/16 06:14 General appearance: no acute distress, alert Eyes: nonicteric ENT: oropharynx moist Neck: supple Effort: normal Auscultation: bilateral: clear Cardiovascular: irregular rhythm, other (Telemetry: Atrial fibrillation with a rate in the mid 80s) Gastrointestinal: normoactive bowel sounds, soft, non-tender Integumentary: other (Fungating mass on the lower thoracic spine that is draining malodorous fluid.) Extremities: no cyanosis, pulses normal, edema (1+ bilaterally pitting), other ( Lower right extremity swollen and red. No palpable cords.) normal mental status, non-focal exam, pupils equal and round mood appropriate, affect normal Results - Laboratory Findings CBC and BMP: 12/13/16 03:04 12/13/16 03:04 ABG ABG pH 7.38 pH Units (7.32-7.45) 12/11/16 04:50 ABG pCO2 43 mmHg (35-45) 12/11/16 04:50 ABG pO2 59 mmHg (85-104) L 12/11/16 04:50 ABG O2 Saturation 90 % (95-98) L 12/11/16 04:50 PT/INR, D-dimer PT 13.5 Seconds (9.4-12.1) H 12/12/16 09:15 Abnormal lab findings: Abnormal lab results WBC 19.6 K/mcL (4.3-11.1) H 12/13/16 03:04 RBC 3.28 M/mcL (3.82-4.97) L 12/13/16 03:04 Hgb 7.8 g/dL (11.5-15.4) L 12/13/16 03:04 Hct 28.1 % (35.3-44.9) L 12/13/16 03:04 MCH 23.8 pg (28.0-33.3) L 12/13/16 03:04 MCHC 27.8 g/dL (31.6-35.5) L 12/13/16 03:04 RDW 17.1 % (11.5-14.5) H 12/13/16 03:04 Neutrophils # 16.0 K/mcL (1.6-8.9) H 12/13/16 03:04 Monocytes # 1.6 K/mcL (0.0-1.3) H 12/13/16 03:04 Nucleated RBCs/100 WBC 0.2 /100 WBC (0) H 12/13/16 03:04 Clumped Platelets Few (Not Present) A 12/13/16 03:04 Large Platelets Present (Not Present) A 12/11/16 05:20 Polychromasia 1+ (Not Present) A 12/12/16 09:15 Hypochromasia Present (Not Present) A 12/13/16 03:04 Anisocytosis 1+ (Not Present) A 12/13/16 03:04 Macrocytosis Present (Not Present) A 12/11/16 05:20 PT 13.5 Seconds (9.4-12.1) H 12/12/16 09:15 ABG pO2 59 mmHg (85-104) L 12/11/16 04:50 ABG Total CO2 26.7 mEq/L (20-26) H 12/11/16 04:50 ABG O2 Saturation 90 % (95-98) L 12/11/16 04:50 Potassium 4.9 mEq/L (3.5-4.5) H D 12/13/16 03:04 Chloride 115 mEq/L (98-109) H 12/13/16 03:04 BUN 21 mg/dL (7-20) H 12/13/16 03:04 Glucose 174 mg/dL (70-99) H 12/13/16 03:04 POC Glucose 143 (58-89) H 12/13/16 07:33 Calculated Osmolality 303 (280-300) H 12/13/16 03:04 Calcium 8.3 mg/dL (8.6-10.8) L 12/13/16 03:04 Alkaline Phosphatase 159 Units/L (38-126) H 12/12/16 09:15 Creatine Kinase < 7 Units/L (29-168) L 12/10/16 00:16 B-Natriuretic Peptide 272 pg/mL (0-100) H 12/10/16 00:16 Serum Total Protein 5.3 g/dL (6.0-8.3) L 12/12/16 09:15 Albumin 1.8 g/dL (3.5-5.0) L 12/12/16 09:15 Albumin/Globulin Ratio 0.5 (1.1-2.2) L 12/12/16 09:15 Urine Clarity Turbid (Clear) A 12/10/16 09:23 Ur Specific [place] 1.027 (1.010-1.025) H 12/10/16 09:23 Urine Protein 100 mg/dL (Neg-Trace) H 12/10/16 09:23 Urine Ketones Trace mg/dL (Negative) H 12/10/16 09:23 Urine Blood Small (Negative) H 12/10/16 09:23 Urine Bilirubin Small (Negative) H 12/10/16 09:23 Ur Leukocyte Esterase Large (Negative) H 12/10/16 09:23 Urine Microscopic RBC 5-15 per hpf (0-3) H 12/10/16 09:23 Urine Microscopic WBC 50-100 per hpf (0-3) H 12/10/16 09:23 Ur Squamous Epith Cells Moderate per lpf (None-Few) H 12/10/16 09:23 Urine Bacteria Many per hpf (None-Few) H 12/10/16 09:23 Ur Culture Indicated? YES (NO) A 12/10/16 09:23 - Microbiology Findings Microbiology Findings: Microbiology, Last 48 Hours 12/10/16 09:30 Sputum Culture - Final Sputum Haemophilus influenzae 12/10/16 09:23 Urine Culture - Final Urine,Clean Catch Escherichia coli - Clinical Findings Intake & Output: Intake & Output 12/12/16 12/13/16 12/13/16 23:59 07:59 15:59 Intake Total 100 / 100 100 / 100 Output Total 325 / 325 75 / 75 50 / 50 Balance -225 / -225 25 / 25 -50 / -50 Weight 99.755 kg Consult Discharge Plan - Plan Referrals: NONE,PCP [Primary Care Provider] - <Ari Blanco - Last Filed: 12/13/16 16:21> Date of Encounter: 12/13/16 Objective PUL Vital signs: Last Vital Signs Temp 98.5 F 12/13/16 16:18 Pulse 97 12/13/16 16:18 Resp 16 12/13/16 16:18 BP 134/97 12/13/16 16:18 Pulse Ox 94 12/13/16 16:18 Results - Laboratory Findings CBC and BMP: 12/13/16 03:04 12/13/16 03:04 ABG ABG pH 7.38 pH Units (7.32-7.45) 12/11/16 04:50 ABG pCO2 43 mmHg (35-45) 12/11/16 04:50 ABG pO2 59 mmHg (85-104) L 12/11/16 04:50 ABG O2 Saturation 90 % (95-98) L 12/11/16 04:50 PT/INR, D-dimer PT 13.5 Seconds (9.4-12.1) H 12/12/16 09:15 Abnormal lab findings: Abnormal lab results WBC 19.6 K/mcL (4.3-11.1) H 12/13/16 03:04 RBC 3.28 M/mcL (3.82-4.97) L 12/13/16 03:04 Hgb 7.8 g/dL (11.5-15.4) L 12/13/16 03:04 Hct 28.1 % (35.3-44.9) L 12/13/16 03:04 MCH 23.8 pg (28.0-33.3) L 12/13/16 03:04 MCHC 27.8 g/dL (31.6-35.5) L 12/13/16 03:04 RDW 17.1 % (11.5-14.5) H 12/13/16 03:04 Neutrophils # 16.0 K/mcL (1.6-8.9) H 12/13/16 03:04 Monocytes # 1.6 K/mcL (0.0-1.3) H 12/13/16 03:04 Nucleated RBCs/100 WBC 0.2 /100 WBC (0) H 12/13/16 03:04 Clumped Platelets Few (Not Present) A 12/13/16 03:04 Large Platelets Present (Not Present) A 12/11/16 05:20 Polychromasia 1+ (Not Present) A 12/12/16 09:15 Hypochromasia Present (Not Present) A 12/13/16 03:04 Anisocytosis 1+ (Not Present) A 12/13/16 03:04 Macrocytosis Present (Not Present) A 12/11/16 05:20 PT 13.5 Seconds (9.4-12.1) H 12/12/16 09:15 ABG pO2 59 mmHg (85-104) L 12/11/16 04:50 ABG Total CO2 26.7 mEq/L (20-26) H 12/11/16 04:50 ABG O2 Saturation 90 % (95-98) L 12/11/16 04:50 Potassium 4.9 mEq/L (3.5-4.5) H D 12/13/16 03:04 Chloride 115 mEq/L (98-109) H 12/13/16 03:04 BUN 21 mg/dL (7-20) H 12/13/16 03:04 Glucose 174 mg/dL (70-99) H 12/13/16 03:04 POC Glucose 208 (58-89) H 12/13/16 11:07 Calculated Osmolality 303 (280-300) H 12/13/16 03:04 Calcium 8.3 mg/dL (8.6-10.8) L 12/13/16 03:04 Alkaline Phosphatase 159 Units/L (38-126) H 12/12/16 09:15 Creatine Kinase < 7 Units/L (29-168) L 12/10/16 00:16 B-Natriuretic Peptide 272 pg/mL (0-100) H 12/10/16 00:16 Serum Total Protein 5.3 g/dL (6.0-8.3) L 12/12/16 09:15 Albumin 1.8 g/dL (3.5-5.0) L 12/12/16 09:15 Albumin/Globulin Ratio 0.5 (1.1-2.2) L 12/12/16 09:15 Urine Clarity Turbid (Clear) A 12/10/16 09:23 Ur Specific [place] 1.027 (1.010-1.025) H 12/10/16 09:23 Urine Protein 100 mg/dL (Neg-Trace) H 12/10/16 09:23 Urine Ketones Trace mg/dL (Negative) H 12/10/16 09:23 Urine Blood Small (Negative) H 12/10/16 09:23 Urine Bilirubin Small (Negative) H 12/10/16 09:23 Ur Leukocyte Esterase Large (Negative) H 12/10/16 09:23 Urine Microscopic RBC 5-15 per hpf (0-3) H 12/10/16 09:23 Urine Microscopic WBC 50-100 per hpf (0-3) H 12/10/16 09:23 Ur Squamous Epith Cells Moderate per lpf (None-Few) H 12/10/16 09:23 Urine Bacteria Many per hpf (None-Few) H 12/10/16 09:23 Ur Culture Indicated? YES (NO) A 12/10/16 09:23 - Microbiology Findings Microbiology Findings: Microbiology, Last 48 Hours 12/10/16 09:30 Sputum Culture - Final Sputum Haemophilus influenzae 12/10/16 09:23 Urine Culture - Final Urine,Clean Catch Escherichia coli - Clinical Findings Intake & Output: Intake & Output 12/13/16 12/13/16 12/13/16 07:59 15:59 23:59 Intake Total 100 / 100 660 / 660 Output Total 75 / 75 125 / 125 Balance 25 / 25 535 / 535 Weight 99.755 kg - Attending Attestation I examined this patient and my medical decision-making was reviewed with the Resident Physician. I agree with the documented findings, disposition and treatment plan as described except to the extent set forth below. Patient seen and examined. Labs, radiology, chart personally reviewed. 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: Patient follows commands, Pulmonary: Acceptable oxygenation and ventilation Cardiovascular: stable GI: Nutrition per dietary and GI prophylaxis per routine Heme: DVT prophylaxis per routine area to overall poor prognosis and palliative care and oncology to follow-up ID: Continue antibiotics and plan to de-escalation Renal; urine out put and renal funtion reviewed Endorcine: blood glucose is monitored Lines: all lines checked and no evidence of infections Skin: skin care to prevent pressure ulcers per nursing routine care Patient has been transferred to the floor and hospitalist will follow up please call for any questions.
--- NOTE | 2016-12-13 09:30 | Oncology Inp Progress Note ---
Date of Encounter: 12/13/16 Time of Encounter: 09:28 (1) 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 Current Visit: No Status: Chronic Assessment and plan: -Plan discussed with patient and family yesterday ( son and ). Tumor is BRAF positive, eligible for target therapy once her acute clinical issues and performance status have improved. -She will need to follow up with her outpatient oncologist Dr. Tim shortly after discharge to discuss the appropriate time to start target therapy. - Preliminary report of doppler US consistent with DVT. I agree with full dose anticoagulation with lovenox ( renal function within acceptable parameters). I would continue lovenot at the time of discharge ( not new anticoagulants since it has not been extensively tested in the settings of malignancy). (2) Respiratory failure with hypoxia and hypercapnia Current Visit: Yes Status: Acute Assessment and plan: - I appreciate excellent care of ICU team. . 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 She has declined the recommendation for a bone marrow biopsy in the past. Oncology: Subj Interval history: CC: right leg pain. Reports improvement of her leg pain. Currently anticoagulated with full dose of lovenox, no bleeding issues. Patient seen with nurse at bedside. - Constitutional Vitals: Vital Signs Temp Pulse Resp BP Pulse Ox 12/13/16 07:35 97.4 F L 12/13/16 06:14 92 24 87/61 100 12/13/16 05:00 83 20 96/72 96 12/13/16 04:15 83 12/13/16 04:08 18 99 12/13/16 04:00 97.5 F L 83 21 100/77 98 12/13/16 03:00 74 20 95/46 100 12/13/16 02:00 87 21 98/65 99 12/13/16 01:00 86 21 98/54 100 12/13/16 00:15 81 21 103/60 98 12/12/16 23:00 97.7 F 87 17 98/66 100 12/12/16 22:18 18 98 12/12/16 22:00 100 23 97/54 98 12/12/16 21:00 114 23 89/65 98 12/12/16 20:30 119 12/12/16 20:00 129 25 96/78 92 12/12/16 19:40 97.7 F 12/12/16 19:00 124 29 116/69 93 12/12/16 18:00 133 22 111/66 94 12/12/16 17:00 135 22 125/64 96 12/12/16 16:00 102 20 104/57 96 12/12/16 15:55 97.6 F 12/12/16 15:35 20 98 12/12/16 15:10 85 12/12/16 15:00 90 20 104/72 98 12/12/16 13:00 85 18 102/74 98 12/12/16 12:00 103 20 110/81 96 12/12/16 11:41 97.7 F 12/12/16 11:15 86 12/12/16 11:00 112 20 77/65 96 12/12/16 10:00 113 20 107/81 96 12/12/16 09:40 18 96 Intake and Output 12/12/16 12/13/16 12/13/16 23:59 07:59 15:59 Intake Total 100 / 100 100 / 100 Output Total 325 / 325 75 / 75 50 / 50 Balance -225 / -225 25 / 25 -50 / -50 Intake: IV Fluids 100 / 100 100 / 100 Zosyn 3.375 GM In 100 / 100 100 / 100 Dextrose 5% (Minibag+) 100 ML 100 ML @ 25 mls/hr IVPB Q8HR [facility] Rx#: [id number] Output: Urine 50 / 50 Catheter 325 / 325 75 / 75 Other: Weight 99.755 kg Blood Glucose* 186 143 Patient Weight 12/13/16 23:59 Weight 99.755 kg - Head Head exam: Present: normal inspection - Respiratory Respiratory exam: Present: CTAB - GI/Abdominal GI/Abdominal exam: Present: normal bowel sounds - Extremities Exam Extremities exam: Present: pedal edema (bilateral pedal edema with calf tenderness.) Oncology: Obj Data - Labs CBC & Chem 7: 12/13/16 03:04 12/13/16 03:04 Labs: Laboratory Results - last 24 hr 12/12/16 12/12/16 12/12/16 09:15 09:15 09:15 WBC RBC Hgb Hct MCV MCH MCHC RDW Plt Count MPV Immature Gran % 1.3 Seg Neutrophils % 85.5 Lymphocytes % 6.5 Monocytes % 6.5 Eosinophils % 0.1 Basophils % 0.1 Neutrophils # 19.5 H Lymphocytes # 1.5 Monocytes # 1.5 H Eosinophils # 0.0 Basophils # 0.0 Nucleated RBCs/100 WBC Platelet Estimate Increased H Clumped Platelets Polychromasia 1+ A Hypochromasia Present A Anisocytosis PT 13.5 H INR 1.2 APTT 32.1 Sodium 142 D Potassium 3.4 L Chloride 107 Carbon Dioxide 29 BUN 21 H Creatinine 0.76 Est GFR ( Amer) > 60 Est GFR (Non-Af Amer) > 60 BUN/Creatinine Ratio 28 H Glucose 143 H POC Glucose Calculated Osmolality 299 Calcium 8.6 Phosphorus Magnesium Total Bilirubin < 0.3 AST 18 ALT 20 Alkaline Phosphatase 159 H Serum Total Protein 5.3 L Albumin 1.8 L Globulin 3.5 Albumin/Globulin Ratio 0.5 L 12/12/16 12/12/16 12/12/16 11:25 15:37 19:41 WBC RBC Hgb Hct MCV MCH MCHC RDW Plt Count MPV Immature Gran % Seg Neutrophils % Lymphocytes % Monocytes % Eosinophils % Basophils % Neutrophils # Lymphocytes # Monocytes # Eosinophils # Basophils # Nucleated RBCs/100 WBC Platelet Estimate Clumped Platelets Polychromasia Hypochromasia Anisocytosis PT INR APTT Sodium Potassium Chloride Carbon Dioxide BUN Creatinine Est GFR ( Amer) Est GFR (Non-Af Amer) BUN/Creatinine Ratio Glucose POC Glucose 149 H 147 H 186 H Calculated Osmolality Calcium Phosphorus Magnesium Total Bilirubin AST ALT Alkaline Phosphatase Serum Total Protein Albumin Globulin Albumin/Globulin Ratio 12/12/16 12/13/16 12/13/16 23:42 03:04 03:04 WBC 19.6 H RBC 3.28 L Hgb 7.8 L Hct 28.1 L MCV 85.7 MCH 23.8 L MCHC 27.8 L RDW 17.1 H Plt Count 332 MPV 10.2 Immature Gran % 2.6 Seg Neutrophils % 81.6 Lymphocytes % 7.1 Monocytes % 7.9 Eosinophils % 0.5 Basophils % 0.3 Neutrophils # 16.0 H Lymphocytes # 1.4 Monocytes # 1.6 H Eosinophils # 0.1 Basophils # 0.1 Nucleated RBCs/100 WBC 0.2 H Platelet Estimate Normal Clumped Platelets Few A Polychromasia Hypochromasia Present A Anisocytosis 1+ A PT INR APTT Sodium 143 Potassium 4.9 H D Chloride 115 H Carbon Dioxide 21 BUN 21 H Creatinine 0.85 Est GFR ( Amer) > 60 Est GFR (Non-Af Amer) > 60 BUN/Creatinine Ratio 25 Glucose 174 H POC Glucose 219 H Calculated Osmolality 303 H Calcium 8.3 L Phosphorus 3.5 Magnesium 1.7 Total Bilirubin AST ALT Alkaline Phosphatase Serum Total Protein Albumin Globulin Albumin/Globulin Ratio 12/13/16 12/13/16 03:53 07:33 WBC RBC Hgb Hct MCV MCH MCHC RDW Plt Count MPV Immature Gran % Seg Neutrophils % Lymphocytes % Monocytes % Eosinophils % Basophils % Neutrophils # Lymphocytes # Monocytes # Eosinophils # Basophils # Nucleated RBCs/100 WBC Platelet Estimate Clumped Platelets Polychromasia Hypochromasia Anisocytosis PT INR APTT Sodium Potassium Chloride Carbon Dioxide BUN Creatinine Est GFR ( Amer) Est GFR (Non-Af Amer) BUN/Creatinine Ratio Glucose POC Glucose 171 H 143 H Calculated Osmolality Calcium Phosphorus Magnesium Total Bilirubin AST ALT Alkaline Phosphatase Serum Total Protein Albumin Globulin Albumin/Globulin Ratio - ABG Interpretation ABG results: ABG ABG pH 7.38 pH Units (7.32-7.45) 12/11/16 04:50 ABG pCO2 43 mmHg (35-45) 12/11/16 04:50 ABG pO2 59 mmHg (85-104) L 12/11/16 04:50 ABG O2 Saturation 90 % (95-98) L 12/11/16 04:50 PT/INR, D-dimer PT 13.5 Seconds (9.4-12.1) H 12/12/16 09:15 Consult Discharge Plan - Plan Referrals: NONE,PCP [Primary Care Provider] -
[2016-12-13] MEDS ORDERED: Dextrose Gel 15 GM PO PRN ×2 (12:29)
[2016-12-13] MEDS ORDERED: Magnesium Sulfate 2 GM in D5% in Water 100 ML IVPB PRN (12:29)
[2016-12-13] MEDS ORDERED: Ipratropium/Albuterol Neb 3 ML IH PRN (12:29)
[2016-12-13] MEDS ORDERED: Naloxone 0.4 MG/ML INJ IVP PRN (12:29)
[2016-12-13] MEDS ORDERED: Acetaminophen 325 MG TABLET PO PRN (12:29)
[2016-12-13] MEDS ORDERED: D5% in Water 1,000 ML IVC PRN (12:29)
[2016-12-13] MEDS ORDERED: *HR* Dextrose 50 % in Water (Syg) 50 ML SYRINGE IVP PRN (12:29)
[2016-12-13] MEDS ORDERED: *HR* FentaNYL (PF) 100 MCG/2 ML VIAL IVP PRN (12:29)
[2016-12-13] MEDS ORDERED: Potassium Phosphate 44 MEQ in 0.9 % Sodium Chloride 250 ML IVPB PRN (12:29)
[2016-12-13] MEDS ORDERED: Calcium Gluconate 1,000 MG in D5% in Water 100 ML IVPB PRN (12:29)
[2016-12-14] MEDS: Ipratropium/Albuterol Neb 3 ML IH SCH ×4 (03:29→22:10)
[2016-12-14 04:54] LABS: Basophils # 0.1 K/mcL (0.0-0.2); Basophils % 0.4 %; Eosinophils # 0.2 K/mcL (0.0-0.6); Eosinophils % 1.3 %; Hematocrit 27.8 % (35.3-44.9); Hemoglobin 7.8 g/dL (11.5-15.4); Immature Granulocytes % 4.6 % (0-4); Lymphocytes % 9.9 %; Mean Corpuscular HGB Conc 28.1 g/dL (31.6-35.5); Mean Corpuscular Hemoglobin 24.3 pg (28.0-33.3); Mean Corpuscular Volume 86.6 fL (83.0-100.0); Mean Platelet Volume 10.5 fL (9.4-12.4); Monocytes # 1.3 K/mcL (0.0-1.3); Monocytes % 8.1 %; Neutrophils # 11.8 K/mcL (1.6-8.9); Platelet Count 348 K/mcL (140-400); Red Blood Count 3.21 M/mcL (3.82-4.97); Segmented Neutrophils % 75.7 %
[2016-12-14] MEDS: *HR* Enoxaparin 100 MG/ML SYRINGE SQ SCH ×2 (04:54→18:30)
[2016-12-14 05:00] LABS: BUN/Creatinine Ratio 19 (6-26); Blood Urea Nitrogen 18 mg/dL (7-20); Calcium 8.5 mg/dL (8.6-10.8); Carbon Dioxide 24 mEq/L (19-29); Chloride 111 mEq/L (98-109); Glucose 140 mg/dL (70-99); Osmolality,Calculated 298 (280-300); Potassium 3.9 mEq/L (3.5-4.5); Sodium 142 mEq/L (136-145); eGFR For African Americans > 60 (> 60); eGFR For Non-African Americans 56 (> 60)
[2016-12-14 05:02] LABS: Anisocytosis 1+ (Not Present); Basophilic Stippling 1+ (Not Present); Lymphocytes # 1.5 K/mcL (0.6-4.6); Platelet Estimate Normal (Normal)
[2016-12-14 05:03] LABS: Microcytosis Present (Not Present); Polychromasia 1+ (Not Present)
[2016-12-14 05:53] LABS: Hemoglobin A1C 5.3 %
--- NOTE | 2016-12-14 06:57 | Venous Imaging Report ---
LE Venous Duplex Patient Name:Dana Canela Order Number:[id number] Procedure Date:12/12/2016 Date:9Age:76 yrs Gender:Female Location:[facility] Room #: IC2 Supercalender Operator:Telma Kamara RDCS Referring MD:Aleksandr Kumar DO senior manager mergers & acquisitions:None Reading MD:Ag Owens MD Primary Indications:DVT Secondary Indications: Risk Factors Yes/No Hx of DVT Unknown Anticoagulants Unknown Hx of Chemotherapy Unknown Impressions: Acute deep venous thrombosis is present in the right superficial femoral vein. Normal right superficial venous exam. Normal contralateral common femoral vein. Recommendations: Test completed on 05/14/2016 at 8:17:00 pm. Critical findings reported to CATHERINE Lara in person at 8:20:00 pm on 12/12/2016 by Telma Kamara RDCS. Findings Venous Duplex Results: Right: There is a partially occlusive thrombus seen in the right superficial femoral. Prior Study: No prior study available for comparison. Lower Extremity Venous Duplex Side Vein Compress Spontaneous Flow Augment Diameter (cm) Depth (cm) Right Distal Iliac Normal Yes Phasic Yes Right Common Femoral Normal Yes Phasic Yes Right Superficial Femoral Partial yes Phasic no Right Popliteal Normal Yes Phasic Yes Right Posterior Tibial Normal Yes Phasic Yes Right Peroneal Normal Yes Phasic Yes Right Saphenofemoral Junction Normal Yes Phasic Yes Right Great Saphenous Normal Yes Phasic Yes Right Lesser Saphenous Normal Yes Phasic Yes Left Common Femoral Normal Yes Phasic Yes Updated by gA Owens MD on 12/14/2016 6:52:01 AM electronically signed on 12/14/2016 6:52:20 AM with status of Final
--- NOTE | 2016-12-14 09:08 | Event Note ---
Date of Encounter: 12/14/16 Time of Encounter: 09:00 Chart reviewed from last 48 hours. Patient now out of ICU, stable. Oncology notes reviewed, appreciated. Palliative not currently managing any symptoms, and code status revisited and remains DNRCC-Arrest. Patient/family desire to pursue treatment for melanoma. She will return to ECF when stable. Palliative will sign off. Please reconsult PRN.
--- NOTE | 2016-12-14 11:47 | Internal Med Progress Note ---
Date of Encounter: 12/14/16 Time of Encounter: 11:45 - Assessment and plan (1) RLL pneumonia Current Visit: Yes Status: Acute Assessment and plan: clinically improving saturating well on nasal cannula continue IV abx with Zosyn (Day 12/10) continue to monitor respiratory status restarted patient's home dose of Lasix given generalized anasarca Qualifiers: Pneumonia type: due to unspecified organism Qualified Code(s): J18.1 - Lobar pneumonia, unspecified organism (2) 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 Current Visit: No Status: Chronic Assessment and plan: Oncology evaluation appreciated No acute intervention recommended at this time outpatient follow up with primary oncologist recommended (3) Acute respiratory failure Current Visit: Yes Status: Resolved Assessment and plan: resolved currently saturating well on nasal cannula patient's code status has been changed to DNR/DNI during this hospitalization Qualifiers: Respiratory failure complication: hypoxia and hypercapnia Qualified Code(s) : J96.01 - Acute respiratory failure with hypoxia; J96.02 - Acute respiratory failure with hypercapnia (4) Atrial fibrillation with RVR Current Visit: Yes Status: Acute Assessment and plan: HR controlled with BB anticoagulated with Lovenox (5) Counseling regarding advanced care planning and goals of care Current Visit: Yes Status: Acute Assessment and plan: Palliative care evaluation appreciated (6) DVT (deep venous thrombosis) Current Visit: Yes Status: Acute Assessment and plan: RLE DVT as per oncology, given severity of her malignancy, the best agent for anticoagulation is Lovenox, therefore will continue therapeutic dose of Lovenox and patient will be discharged to [place] with lovenox SQ Qualifiers: DVT location: lower extremity Chronicity: acute Laterality: right Qualified Code(s): I82.401 - Acute embolism and thrombosis of unspecified deep veins of right lower extremity - Subjective Interval history: Patient seen and examined at bedside. Pt is AAO x 3 but QUECHAN. He denies any pain but reports of being severely week. He was transferred out of the ICU and is currently being treated for HCAP along with RLE DVT. She has history of metastatic melanoma to the liver and will be following oncology as outpatient for chemotherapy treatment. - Constitutional Vitals: Temp Pulse Resp BP Pulse Ox 97.4 F L 86 18 110/70 93 12/14/16 11:41 12/14/16 11:41 12/14/16 11:41 12/14/16 11:41 12/14/16 11:41 General appearance: Present: A&O X 3 (QUECHAN), no acute distress, obese - Head Head exam: Present: atraumatic, normocephalic - Eye Eye exam: Present: conjuntiva pink, sclera anicteric - Respiratory Respiratory exam: Present: decreased breath sounds. Absent: respiratory distress, wheezes - Cardiovascular Cardiovascular exam: Present: irregular rhythm, +S1, +S2 - GI/Abdominal GI/Abdominal exam: Present: normal bowel sounds, soft. Absent: distended, tenderness - Extremities Exam Extremities exam: Present: pedal edema (diffuse anasarca ), warm, radial pulses palpable and symmetrical. Absent: calf tenderness - Neurological Exam Neurological exam: Present: alert, oriented X3 Internal Medicine: Result - Labs CBC & Chem 7: 12/14/16 04:30 12/14/16 04:30 Labs: Short CBC 12/14/16 Range/Units 04:30 WBC 15.6 H (4.3-11.1) K/mcL Hgb 7.8 L (11.5-15.4) g/dL Hct 27.8 L (35.3-44.9) % Plt Count 348 (140-400) K/mcL Neutrophils # 11.8 H (1.6-8.9) K/mcL BMP 12/14/16 04:30 Sodium 142 Potassium 3.9 D Chloride 111 H Carbon Dioxide 24 BUN 18 Creatinine 0.96 Glucose 140 H Calcium 8.5 L - ABG Interpretation ABG results: ABG ABG pH 7.38 pH Units (7.32-7.45) 12/11/16 04:50 ABG pCO2 43 mmHg (35-45) 12/11/16 04:50 ABG pO2 59 mmHg (85-104) L 12/11/16 04:50 ABG O2 Saturation 90 % (95-98) L 12/11/16 04:50 PT/INR, D-dimer PT 13.5 Seconds (9.4-12.1) H 12/12/16 09:15 Consult Discharge Plan - Plan Referrals: NONE,PCP [Primary Care Provider] - Prescriptions: Dabrafenib Mesylate [Tafinlar] 50 mg PO DAILY #30 capsule Trametinib Dimethyl Sulfoxide [Mekinist] 1 mg PO DAILY #60 tablet
[2016-12-14] MEDS ORDERED: Furosemide 40 MG TABLET PO SCH (12:00)
--- NOTE | 2016-12-14 13:00 | Event Note ---
Date of Encounter: 12/14/16 Time of Encounter: 12:[address] Tim. She intends to start systemic therapy targeting be reputation. At this point, given lack of symptoms related to her large lesion on right back, we will defer any radiation therapy. Will see patient back as necessary at Dr. Tim's discretion. Francis Buchanan MD Radiation Oncologist [place] [address] [place] [address]
[2016-12-14] MEDS: Piperacillin/Tazobactam 3.375 GM in D5% in Water (Mini-Bag+) 100 ML IVPB SCH ×2 (14:13→21:13)
[2016-12-14] MEDS: Furosemide 40 MG TABLET PO SCH (14:14)
[2016-12-15] MEDS: Ipratropium/Albuterol Neb 3 ML IH SCH ×4 (03:14→21:38)
[2016-12-15] MEDS: Piperacillin/Tazobactam 3.375 GM in D5% in Water (Mini-Bag+) 100 ML IVPB SCH ×3 (05:19→21:11)
[2016-12-15] MEDS: *HR* Enoxaparin 100 MG/ML SYRINGE SQ SCH ×2 (05:21→17:53)
[2016-12-15 05:42] LABS: Hematocrit 25.6 % (35.3-44.9); Mean Corpuscular HGB Conc 27.3 g/dL (31.6-35.5); Mean Corpuscular Hemoglobin 24.3 pg (28.0-33.3); Mean Corpuscular Volume 88.9 fL (83.0-100.0); Mean Platelet Volume 10.6 fL (9.4-12.4); Nucleated Red Blood Cells 0.2 /100 WBC (0); Platelet Count 307 K/mcL (140-400); Red Blood Count 2.88 M/mcL (3.82-4.97); Red Cell Distribution Width 17.2 % (11.5-14.5)
[2016-12-15 05:53] LABS: BUN/Creatinine Ratio 19 (6-26); Blood Urea Nitrogen 17 mg/dL (7-20); Calcium 8.3 mg/dL (8.6-10.8); Carbon Dioxide 31 mEq/L (19-29); Chloride 110 mEq/L (98-109); Glucose 147 mg/dL (70-99); Magnesium 1.7 mg/dL (1.6-2.6); Osmolality,Calculated 302 (280-300); Phosphorous 4.1 mg/dL (2.3-4.7); Potassium 4.8 mEq/L (3.5-4.5); Sodium 144 mEq/L (136-145); eGFR For African Americans > 60 (> 60); eGFR For Non-African Americans 60 (> 60)
[2016-12-15 06:00] LABS: Lymphocytes # 1.6 K/mcL (0.6-4.6); Monocytes # 2.4 K/mcL (0.0-1.3); Neutrophils # 15.4 K/mcL (1.6-8.9); Platelet Estimate Normal (Normal)
[2016-12-15 06:01] LABS: Anisocytosis 1+ (Not Present); Hypochromasia Present (Not Present)
[2016-12-15 06:02] LABS: Basophilic Stippling 1+ (Not Present); Polychromasia 1+ (Not Present)
[2016-12-15] MEDS: Furosemide 40 MG TABLET PO SCH (08:02)
[2016-12-15 10:24] LABS: Hematocrit 34.1 % (35.3-44.9); Immature Platelets 1.9 % (1.1-6.1); Lymphocytes # 1.2 K/mcL (0.6-4.6); Mean Corpuscular HGB Conc 26.4 g/dL (31.6-35.5); Mean Corpuscular Hemoglobin 24.1 pg (28.0-33.3); Mean Corpuscular Volume 91.2 fL (83.0-100.0); Mean Platelet Volume 9.8 fL (9.4-12.4); Nucleated Red Blood Cells 0.1 /100 WBC (0); Platelet Count 437 K/mcL (140-400); Red Blood Count 3.74 M/mcL (3.82-4.97); Red Cell Distribution Width 17.2 % (11.5-14.5)
[2016-12-15 10:42] LABS: Monocytes # 0.6 K/mcL (0.0-1.3); Neutrophils # 16.9 K/mcL (1.6-8.9)
[2016-12-15 10:44] LABS: Platelet Estimate Normal (Normal)
--- NOTE | 2016-12-15 13:18 | Internal Med Progress Note ---
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 Current Visit: No Status: Chronic Assessment and plan: Oncology evaluation appreciated No acute intervention recommended at this time outpatient follow up with primary oncologist recommended (3) Acute respiratory failure Current Visit: Yes Status: Resolved Assessment and plan: resolved currently saturating well on nasal cannula patient's code status has been changed to DNR/DNI during this hospitalization Qualifiers: Respiratory failure complication: hypoxia and hypercapnia Qualified Code(s) : J96.01 - Acute respiratory failure with hypoxia; J96.02 - Acute respiratory failure with hypercapnia (4) Atrial fibrillation with RVR Current Visit: Yes Status: Acute Assessment and plan: HR controlled with BB anticoagulated with Lovenox (5) Counseling regarding advanced care planning and goals of care Current Visit: Yes Status: Acute Assessment and plan: Palliative care evaluation appreciated (6) DVT (deep venous thrombosis) Current Visit: Yes Status: Acute Assessment and plan: RLE DVT as per oncology, given severity of her malignancy, the best agent for anticoagulation is Lovenox, therefore will continue therapeutic dose of Lovenox and patient will be discharged to [place] with lovenox SQ Qualifiers: DVT location: lower extremity Chronicity: acute Laterality: right Qualified Code(s): I82.401 - Acute embolism and thrombosis of unspecified deep veins of right lower extremity (7) Back wound Current Visit: Yes Status: Acute Assessment and plan: secondary to the melanoma draining serous sanguinous fluid will start Vancomcyin IV and f/u wound cultures Qualifiers: Encounter type: initial encounter Laterality: unspecified laterality Qualified Code(s): S21.209A - Unspecified open wound of unspecified back wall of thorax without penetration into thoracic cavity, initial encounter (8) Anasarca Current Visit: Yes Status: Acute Assessment and plan: likely secondary to the underlying illness restarted home dose of Lasix unable to increase Lasix dose due to BP readings - Subjective Interval history: Patient seen and examined at bedside. Pt resting in bed, opens eyes and follows commands, however not communicating today. Noted to have worsening leukocytosis with worsening of back wound. Noted to have discharge from the back wound. Prior history of MRSA in the wound. Will start Vancomycin given worsening of leukocytosis and lethargic mental status. - Constitutional Vitals: Temp Pulse Resp BP Pulse Ox 96.7 F L 91 14 106/76 100 12/15/16 09:33 12/15/16 09:33 12/15/16 09:33 12/15/16 09:33 12/15/16 09:33 General appearance: Present: no acute distress (generalized anasarca ), obese - Head Head exam: Present: atraumatic, normocephalic - Eye Eye exam: Present: conjuntiva pink, sclera anicteric - Respiratory Respiratory exam: Absent: respiratory distress, wheezes - Cardiovascular Cardiovascular exam: Present: RRR, +S1, +S2 - GI/Abdominal GI/Abdominal exam: Present: normal bowel sounds, soft, no peritoneal signs. Absent: distended, tenderness - Extremities Exam Extremities exam: Present: pedal edema, warm, radial pulses palpable and symmetrical. Absent: calf tenderness - Back Exam Additional comments: midline back wound draining Internal Medicine: Result - Labs CBC & Chem 7: 12/15/16 10:13 12/15/16 05:33 Labs: Short CBC 12/15/16 12/15/16 Range/Units 05:33 10:13 WBC 19.8 H 19.2 H (4.3-11.1) K/mcL Hgb 7.0 L 9.0 L D (11.5-15.4) g/dL Hct 25.6 L 34.1 L (35.3-44.9) % Plt Count 307 437 H (140-400) K/mcL Neutrophils # 15.4 H 16.9 H (1.6-8.9) K/mcL BMP 12/15/16 05:33 Sodium 144 Potassium 4.8 H Chloride 110 H Carbon Dioxide 31 H BUN 17 Creatinine 0.91 Glucose 147 H Calcium 8.3 L - ABG Interpretation ABG results: ABG ABG pH 7.38 pH Units (7.32-7.45) 12/11/16 04:50 ABG pCO2 43 mmHg (35-45) 12/11/16 04:50 ABG pO2 59 mmHg (85-104) L 12/11/16 04:50 ABG O2 Saturation 90 % (95-98) L 12/11/16 04:50 PT/INR, D-dimer PT 13.5 Seconds (9.4-12.1) H 12/12/16 09:15 Consult Discharge Plan - Plan Referrals: NONE,PCP [Primary Care Provider] - Prescriptions: Dabrafenib Mesylate [Tafinlar] 50 mg PO DAILY #30 capsule Trametinib Dimethyl Sulfoxide [Mekinist] 1 mg PO DAILY #60 tablet
[2016-12-15] MEDS: Vancomycin 1,000 MG in D5% in Water 250 ML IVPB SCH (14:05)
[2016-12-16] MEDS: Vancomycin 1,000 MG in D5% in Water 250 ML IVPB SCH (01:09)
[2016-12-16] MEDS: Ipratropium/Albuterol Neb 3 ML IH SCH ×4 (03:36→22:02)
[2016-12-16] MEDS: Piperacillin/Tazobactam 3.375 GM in D5% in Water (Mini-Bag+) 100 ML IVPB SCH ×3 (05:28→21:19)
[2016-12-16] MEDS: *HR* Enoxaparin 100 MG/ML SYRINGE SQ SCH ×2 (05:30→17:10)
[2016-12-16 06:19] LABS: Nucleated Red Blood Cells 0.1 /100 WBC (0); Red Cell Distribution Width 17.2 % (11.5-14.5)
[2016-12-16 06:21] LABS: Basophils # 0.1 K/mcL (0.0-0.2); Basophils % 0.5 %; Eosinophils # 0.2 K/mcL (0.0-0.6); Eosinophils % 0.9 %; Hematocrit 30.2 % (35.3-44.9); Hemoglobin 8.3 g/dL (11.5-15.4); Immature Granulocytes % 3.7 % (0-4); Lymphocytes # 1.3 K/mcL (0.6-4.6); Lymphocytes % 6.9 %; Mean Corpuscular HGB Conc 27.5 g/dL (31.6-35.5); Mean Corpuscular Hemoglobin 24.4 pg (28.0-33.3); Mean Corpuscular Volume 88.8 fL (83.0-100.0); Mean Platelet Volume 9.9 fL (9.4-12.4); Monocytes % 5.2 %; Neutrophils # 15.2 K/mcL (1.6-8.9); Platelet Count 369 K/mcL (140-400); Segmented Neutrophils % 82.8 %
[2016-12-16 06:31] LABS: BUN/Creatinine Ratio 19 (6-26); Blood Urea Nitrogen 16 mg/dL (7-20); Calcium 8.6 mg/dL (8.6-10.8); Carbon Dioxide 31 mEq/L (19-29); Chloride 102 mEq/L (98-109); Glucose 157 mg/dL (70-99); Magnesium 1.6 mg/dL (1.6-2.6); Osmolality,Calculated 296 (280-300); Phosphorous 3.1 mg/dL (2.3-4.7); Sodium 141 mEq/L (136-145); eGFR For African Americans > 60 (> 60); eGFR For Non-African Americans > 60 (> 60)
[2016-12-16 06:32] LABS: Potassium 3.4 mEq/L (3.5-4.5)
[2016-12-16 06:41] LABS: Anisocytosis 1+ (Not Present); Hypochromasia Present (Not Present); Macrocytosis Present (Not Present); Microcytosis Present (Not Present); Platelet Estimate Normal (Normal); Polychromasia 1+ (Not Present)
[2016-12-16] MEDS: Furosemide 40 MG TABLET PO SCH (07:25)
--- NOTE | 2016-12-16 09:22 | Oncology Inp Progress Note ---
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 Plan to start target therapy for BRAF mutation as outpatient (hopefully once her performance status and status of co morbidities have improved). - Upon discharge, please arrange for follow up with her outpatient oncologist Dr. Tim shortly after discharge to discuss the appropriate time to start target therapy. (2) DVT (deep venous thrombosis) Current Visit: Yes Status: Acute Assessment and plan: Acute DVT noticed in right superficial femoral vein. Continue full anticoagulation with lovenox. I would not recommend the new PO anticoagulants, and coumadin could be an option down the road although there is evidence that probably lovenox is superior for the management of thrombotic events in the settings of active malignancy. 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 She has declined the recommendation for a bone marrow biopsy in the past. Oncology: Subj Interval history: Patient still recovering from PNA, receiving IV antibiotics. Denies complaints. No significant overnight events. no family at bedside. - Constitutional Vitals: Vital Signs Temp Pulse Resp BP Pulse Ox 12/16/16 08:20 98.4 F 63 16 105/73 96 12/16/16 03:15 97.3 F L 67 18 106/62 98 12/15/16 18:51 97.2 F L 71 18 94/63 98 12/15/16 18:01 88 15 92/70 95 12/15/16 15:23 97.8 F 96 16 77/50 98 12/15/16 09:33 96.7 F L 91 14 106/76 100 Intake and Output 12/15/16 12/16/16 12/16/16 23:59 07:59 15:59 Intake Total 350 / 350 450 / 450 237 / 237 Balance 350 / 350 450 / 450 237 / 237 Intake: IV Fluids 350 / 350 350 / 350 Zosyn 3.375 GM In 100 / 100 100 / 100 Dextrose 5% (Minibag+) 100 ML 100 ML @ 25 mls/hr IVPB Q8H [facility] Rx#: [id number] Vancocin 1,000 MG In 250 / 250 250 / 250 Dextrose 5% 250 ML @ 167 mls/hr IVPB Q12H [facility] Rx#: [id number] Oral 0 / 0 100 / 100 237 / 237 Other: Meal Breakfast Percent of Meal Consumed 0% Stool Size Small Moderate Large Stool Consistency loose loose loose liquid soft Stool Color Brown Brown Brown Black # Urine Diapers 2 1 1 # Bowel Movement Diapers 1 Weight 90.809 kg Blood Glucose* 153 Patient Weight 12/16/16 23:59 Weight 90.809 kg - Head Head exam: Present: normal inspection - Respiratory Respiratory exam: Present: CTAB - GI/Abdominal GI/Abdominal exam: Present: normal bowel sounds Oncology: Obj Data - Labs CBC & Chem 7: 12/16/16 05:51 12/16/16 05:51 Labs: Laboratory Results - last 24 hr 12/15/16 12/15/16 12/16/16 09:44 10:13 03:20 WBC 19.2 H RBC 3.74 L Hgb 9.0 L D Hct 34.1 L MCV 91.2 MCH 24.1 L MCHC 26.4 L RDW 17.2 H Plt Count 437 H MPV 9.8 Immature Gran % Seg Neutrophils % 84.0 Band Neutrophils % 4.0 Lymphocytes % 6.0 Monocytes % 3.0 Eosinophils % Basophils % Metamyelocytes % 1.0 H Myelocytes % 2.0 H Neutrophils # 16.9 H Lymphocytes # 1.2 Monocytes # 0.6 Eosinophils # Basophils # Nucleated RBCs/100 WBC 0.1 H Platelet Estimate Normal Immature Plt Fraction 1.9 Polychromasia Hypochromasia Anisocytosis Microcytosis Macrocytosis Sodium Potassium Chloride Carbon Dioxide BUN Creatinine Est GFR ( Amer) Est GFR (Non-Af Amer) BUN/Creatinine Ratio Glucose Calculated Osmolality Calcium Phosphorus Magnesium Stool Occult Blood Negative Specimen Rejected Miscellaneous 12/16/16 12/16/16 05:51 05:51 WBC 18.3 H RBC 3.40 L Hgb 8.3 L Hct 30.2 L MCV 88.8 MCH 24.4 L MCHC 27.5 L RDW 17.2 H Plt Count 369 MPV 9.9 Immature Gran % 3.7 Seg Neutrophils % 82.8 Band Neutrophils % Lymphocytes % 6.9 Monocytes % 5.2 Eosinophils % 0.9 Basophils % 0.5 Metamyelocytes % Myelocytes % Neutrophils # 15.2 H Lymphocytes # 1.3 Monocytes # 1.0 Eosinophils # 0.2 Basophils # 0.1 Nucleated RBCs/100 WBC 0.1 H Platelet Estimate Normal Immature Plt Fraction Polychromasia 1+ A Hypochromasia Present A Anisocytosis 1+ A Microcytosis Present A Macrocytosis Present A Sodium 141 Potassium 3.4 L D Chloride 102 Carbon Dioxide 31 H BUN 16 Creatinine 0.86 Est GFR ( Amer) > 60 Est GFR (Non-Af Amer) > 60 BUN/Creatinine Ratio 19 Glucose 157 H Calculated Osmolality 296 Calcium 8.6 Phosphorus 3.1 Magnesium 1.6 Stool Occult Blood Specimen Rejected - ABG Interpretation ABG results: ABG ABG pH 7.38 pH Units (7.32-7.45) 12/11/16 04:50 ABG pCO2 43 mmHg (35-45) 12/11/16 04:50 ABG pO2 59 mmHg (85-104) L 12/11/16 04:50 ABG O2 Saturation 90 % (95-98) L 12/11/16 04:50 PT/INR, D-dimer PT 13.5 Seconds (9.4-12.1) H 12/12/16 09:15 Consult Discharge Plan - Plan Referrals: NONE,PCP [Primary Care Provider] - Prescriptions: Dabrafenib Mesylate [Tafinlar] 50 mg PO DAILY #30 capsule Trametinib Dimethyl Sulfoxide [Mekinist] 1 mg PO DAILY #60 tablet
--- NOTE | 2016-12-16 11:27 | Internal Med Progress Note ---
Date of Encounter: 12/16/16 Time of Encounter: 10:10 - Assessment and plan (1) RLL pneumonia Current Visit: Yes Status: Acute Assessment and plan: clinically improving saturating well on nasal cannula continue IV abx with Zosyn (Day 02/09) continue to monitor respiratory status Increased Lasix to 40mg PO BID given worsening generalized anasarca patient's labile BP does not allow for aggressive diuresis Qualifiers: Pneumonia type: due to unspecified organism Qualified Code(s): J18.1 - Lobar pneumonia, unspecified organism (2) 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 Current Visit: No Status: Chronic Assessment and plan: Oncology evaluation appreciated No acute intervention recommended at this time outpatient follow up with primary oncologist recommended (3) Acute respiratory failure Current Visit: Yes Status: Resolved Assessment and plan: resolved currently saturating well on nasal cannula patient's code status has been changed to DNR/DNI during this hospitalization Qualifiers: Respiratory failure complication: hypoxia and hypercapnia Qualified Code(s) : J96.01 - Acute respiratory failure with hypoxia; J96.02 - Acute respiratory failure with hypercapnia (4) Atrial fibrillation with RVR Current Visit: Yes Status: Acute Assessment and plan: HR controlled with BB anticoagulated with Lovenox (5) Counseling regarding advanced care planning and goals of care Current Visit: Yes Status: Acute Assessment and plan: Palliative care evaluation appreciated (6) DVT (deep venous thrombosis) Current Visit: Yes Status: Acute Assessment and plan: RLE DVT as per oncology, given severity of her malignancy, the best agent for anticoagulation is Lovenox, therefore will continue therapeutic dose of Lovenox and patient will be discharged to [place] with lovenox SQ Qualifiers: DVT location: lower extremity Chronicity: acute Laterality: right Qualified Code(s): I82.401 - Acute embolism and thrombosis of unspecified deep veins of right lower extremity (7) Back wound Current Visit: Yes Status: Acute Assessment and plan: secondary to the melanoma continue daily dressing changes f/u wound cultures continue Vancomcyin IV ID consultation requested given persistent leukocytosis despite abx therapy Qualifiers: Encounter type: initial encounter Laterality: unspecified laterality Qualified Code(s): S21.209A - Unspecified open wound of unspecified back wall of thorax without penetration into thoracic cavity, initial encounter (8) Anasarca Current Visit: Yes Status: Acute Assessment and plan: likely secondary to the underlying illness increased lasix PO to BID, will closely monitor BP (9) Electrolyte abnormality Current Visit: Yes Status: Acute Assessment and plan: Hypokalemia K supplemented continue to monitor electrolytes and replace as needed - Subjective Interval history: Patient seen and examined at bedside. Remains bed bound, following commands but does not want to talk. No overnight issues reported. Pt resting in bed, opens eyes and follows commands, however not communicating today. Noted to have worsening leukocytosis with worsening of back wound. Noted to have discharge from the back wound. Prior history of MRSA in the wound. Will start Vancomycin given worsening of leukocytosis and lethargic mental status. - Constitutional Vitals: Temp Pulse Resp BP Pulse Ox 98.4 F 63 16 105/73 96 12/16/16 08:20 12/16/16 08:20 12/16/16 08:20 12/16/16 08:20 12/16/16 08:20 General appearance: Present: no acute distress (generalized anasarca ), obese - Head Head exam: Present: atraumatic, normocephalic - Eye Eye exam: Present: conjuntiva pink, sclera anicteric - Respiratory Respiratory exam: Present: decreased breath sounds. Absent: respiratory distress, wheezes - Cardiovascular Cardiovascular exam: Present: RRR, +S1, +S2. Absent: diastolic murmur, gallop, rubs, systolic murmur - GI/Abdominal GI/Abdominal exam: Present: normal bowel sounds, soft. Absent: tenderness - Extremities Exam Extremities exam: Present: pedal edema, warm, radial pulses palpable and symmetrical. Absent: calf tenderness Internal Medicine: Result - Labs CBC & Chem 7: 12/16/16 05:51 12/16/16 05:51 Labs: Short CBC 12/16/16 Range/Units 05:51 WBC 18.3 H (4.3-11.1) K/mcL Hgb 8.3 L (11.5-15.4) g/dL Hct 30.2 L (35.3-44.9) % Plt Count 369 (140-400) K/mcL Neutrophils # 15.2 H (1.6-8.9) K/mcL BMP 12/16/16 05:51 Sodium 141 Potassium 3.4 L D Chloride 102 Carbon Dioxide 31 H BUN 16 Creatinine 0.86 Glucose 157 H Calcium 8.6 - ABG Interpretation ABG results: ABG ABG pH 7.38 pH Units (7.32-7.45) 12/11/16 04:50 ABG pCO2 43 mmHg (35-45) 12/11/16 04:50 ABG pO2 59 mmHg (85-104) L 12/11/16 04:50 ABG O2 Saturation 90 % (95-98) L 12/11/16 04:50 PT/INR, D-dimer PT 13.5 Seconds (9.4-12.1) H 12/12/16 09:15 Consult Discharge Plan - Plan Referrals: NONE,PCP [Primary Care Provider] - Prescriptions: Dabrafenib Mesylate [Tafinlar] 50 mg PO DAILY #30 capsule Trametinib Dimethyl Sulfoxide [Mekinist] 1 mg PO DAILY #60 tablet
[2016-12-16 12:11] LABS: ABG Base Excess 12.5 mEq/L (-2.0 to 3.0); ABG Oxygen Saturation 88 % (95-98); ABG PCO2 63 mmHg (35-45); ABG PO2 55 mmHg (85-104); ABG TCO2 40.9 mEq/L (20-26)
[2016-12-16 12:12] LABS: Blood Gas Liter Flow 3 L/MIN
[2016-12-16] MEDS ORDERED: Furosemide 20 MG/2 ML VIAL IVP ONE (12:15)
--- NOTE | 2016-12-16 12:25 | Event Note ---
Date of Encounter: 12/16/16 Time of Encounter: 12:19 I was notified that patient was not arousable due to which a rapid response was called. Patient grimacing to tactile stimulation but nonverbal. Her vitals are within acceptable range. AB.40/63/55/39/53/[address] patient on bipap support. I had a detailed conversation with patient's son (Arturo Canela [phone]). He was updated about patient's current status. He states that he understands that his mother is very ill and her prognosis is poor. The code status is to remain [id number]. He states his father is elderly and he is the Next of Kin for this mother's health care decisions. At this point, he wants to know the palliative/hospice care options for his mother. He states he just wants his mother to be comfortable. He reports of working nights and the best time to reach him is from 10am to 12pm. Palliative care consultation requested.
[2016-12-16 20:35] LABS: ABG Base Excess 16.3 mEq/L (-2.0 to 3.0); ABG HCO3 42.8 mEQ/L (21-27); ABG Oxygen Saturation 96 % (95-98); ABG PCO2 66 mmHg (35-45); ABG PH 7.42 pH Units (7.32-7.45); ABG PO2 80 mmHg (85-104); ABG TCO2 44.8 mEq/L (20-26)
[2016-12-16 20:37] LABS: Blood Gas FiO2 35 %; Blood Gas Liter Flow 6 L/MIN
[2016-12-16] MEDS ORDERED: Furosemide 40 MG TABLET PO SCH (21:00)
[2016-12-17] MEDS: Ipratropium/Albuterol Neb 3 ML IH SCH ×4 (03:53→21:44)
[2016-12-17 05:32] LABS: Basophils % 0.4 %; Eosinophils % 1.2 %; Hemoglobin 8.1 g/dL (11.5-15.4)
[2016-12-17] MEDS: Piperacillin/Tazobactam 3.375 GM in D5% in Water (Mini-Bag+) 100 ML IVPB SCH ×2 (05:33→13:38)
[2016-12-17 05:35] LABS: Basophils # 0.1 K/mcL (0.0-0.2); Eosinophils # 0.2 K/mcL (0.0-0.6); Hematocrit 28.6 % (35.3-44.9); Immature Granulocytes % 2.6 % (0-4); Immature Platelets 2.7 % (1.1-6.1); Lymphocytes # 1.4 K/mcL (0.6-4.6); Lymphocytes % 7.8 %; Mean Corpuscular HGB Conc 28.3 g/dL (31.6-35.5); Mean Corpuscular Hemoglobin 24.3 pg (28.0-33.3); Mean Corpuscular Volume 85.9 fL (83.0-100.0); Mean Platelet Volume 9.5 fL (9.4-12.4); Monocytes # 0.8 K/mcL (0.0-1.3); Monocytes % 4.4 %; Neutrophils # 15.3 K/mcL (1.6-8.9); Platelet Count 381 K/mcL (140-400); Red Blood Count 3.33 M/mcL (3.82-4.97); Red Cell Distribution Width 17.2 % (11.5-14.5); Segmented Neutrophils % 83.6 %
[2016-12-17] MEDS: *HR* Enoxaparin 100 MG/ML SYRINGE SQ SCH ×2 (05:36→16:40)
[2016-12-17 05:44] LABS: BUN/Creatinine Ratio 17 (6-26); Blood Urea Nitrogen 14 mg/dL (7-20); Calcium 8.4 mg/dL (8.6-10.8); Carbon Dioxide 35 mEq/L (19-29); Chloride 97 mEq/L (98-109); Glucose 113 mg/dL (70-99); Magnesium 1.5 mg/dL (1.6-2.6); Osmolality,Calculated 295 (280-300); Phosphorous 2.4 mg/dL (2.3-4.7); Potassium 2.9 mEq/L (3.5-4.5); Sodium 142 mEq/L (136-145); eGFR For African Americans > 60 (> 60); eGFR For Non-African Americans > 60 (> 60)
[2016-12-17 05:59] LABS: Hypochromasia Present (Not Present); Platelet Estimate Normal (Normal)
[2016-12-17] MEDS ORDERED: Magnesium Sulfate 1 GM in D5% in Water 100 ML IVPB ONE (07:43)
[2016-12-17] MEDS ORDERED: Potassium Chloride 40 MEQ, Lidocaine 1% 2 ML in D5% in Water 500 ML IVPB ONE (07:43)
--- NOTE | 2016-12-17 08:53 | Infectious Disease Consult ---
Date of Encounter: 12/17/16 Time of Encounter: 08:53 Assessment and Plan (1) Back wound Status: Acute Assessment and plan: Blood cultures collected 12/10/16 reveal no growth to date. Wound culture collected 12/15/16 from back wound reveals gram positive rods. Patient was initially started on vancomycin, Zosyn, and azithromycin on . Azithromycin was discontinued on 12/12/16 and Rocephin was given on . Patient is currently on day 7 of Vancomycin and Zosyn. Recommendations: Palliative care to meet with family tomorrow to discuss treatment options. Repeat wound cultures. Discontinue Zosyn. Continue Vancomycin. Resume Rocephin. Patient has guarded prognosis and increased risk for clinically worsening despite treatment. Qualifiers: Encounter type: initial encounter Laterality: unspecified laterality Qualified Code(s): S21.209A - Unspecified open wound of unspecified back wall of thorax without penetration into thoracic cavity, initial encounter (2) Malignant melanoma of lower back Status: Acute (3) E. coli UTI (urinary tract infection) Status: Acute Assessment and plan: Urine culture was positive for Escherichia coli resistant to Bactrim. (4) RLL pneumonia Status: Acute Assessment and plan: Sputum culture was positive for Haemophilus influenza Repeat chest x-ray on 12/14/16 revealed persistent interstitial edema with small effusions. Qualifiers: Pneumonia type: due to unspecified organism Qualified Code(s): J18.1 - Lobar pneumonia, unspecified organism (5) DVT (deep venous thrombosis) Status: Acute Assessment and plan: Lovenox. Management per primary team. Qualifiers: DVT location: lower extremity Affected thrombotic vein of extremity: femoral Chronicity: acute Laterality: right Qualified Code(s): I82.411 - Acute embolism and thrombosis of right femoral vein (6) Leukocytosis Status: Acute Assessment and plan: Likely secondary to metastatic cancer, pneumonia, and UTI Qualifiers: Leukocytosis type: unspecified Qualified Code(s): D72.829 - Elevated white blood cell count, unspecified (7) Cutaneous candidiasis Status: Chronic (8) Altered mental status Status: Acute Qualifiers: Altered mental status type: unspecified Qualified Code(s): R41.82 - Altered mental status, unspecified (9) Atrial fibrillation with RVR Status: Acute Assessment and plan: Resolved Infectious Disease HPI - Data of Consult Consult date: 12/16/16 Requesting Physician: Margot Shelby MD Primary Care Provider: PCP NONE - Consult Narrative Reason for consult: Persistent leukocytosis History of present illness: Ms. Canela is a 76 year old female that was admitted on 12/10/16 for unresponsiveness Infectious disease is consulted on 12/16/16 for persistent leukocytosis Ms. 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 In the emergency department, patient was intubated to protect her airway and subsequently cardioverted to sinus tachycardia. Of note, patient is not a surgical candidate due to the extent of her matastatic disease and patient's code status has been changed to DNR/DNI during this hospitalization. Since admission they have met 3 SIRS criteria of leukocytosis WBC 35.4, tachycardia heart rate 112, and hypotension blood pressure 87/61. Labs on admission revealed leukocytosis WBC 35.4, 86.0% segmented neutrophils, negative C. difficile toxin, and urinalysis with turbid appearance, large leukocyte esterase, many bacteria, and 50-100 white blood cells. Venous ultrasound revealed acute deep venous thrombosis is present in the right superficial femoral vein, normal right superficial venous exam, and normal contralateral common femoral vein. CT head revealed No acute intracranial abnormality or evidence of abnormal enhancement with bilateral mastoid air cell and middle and airspace effusions and right sphenoid sinus effusion. Chest x- ray 12/10/16 revealed bilateral interstitial opacities may indicate mild edema, pneumonitis or chronic changes and hazy opacity projects over right lung base may represent lung consolidation or consistent with patient's history of soft tissue mass. Repeat chest x-ray on 12/14/16 revealed persistent interstitial edema with small effusions. Echocardiography revealed mild left ventricular systolic dysfunction with EF 45%. Blood cultures collected 12/10/16 reveal no growth to date. Urine culture was positive for Escherichia coli resistant to Bactrim. Sputum culture was positive for Haemophilus influenza. And wound culture collected 12/15/16 from back wound reveals no growth to date. Patient was initially started on vancomycin, Zosyn, and azithromycin on . Azithromycin was discontinued on 12/12/16 and Rocephin was given on . Patient is currently on day 7 of Vancomycin and Zosyn. Other consultants include palliative care, radiation oncology, and surgery. CC: Margot Shelby MD Past Med Surg Social Fam HX - Past Medical History Medical history: atrial fibrillation, cancer (metastatic melanoma), hypertension Psychiatric history: depression - Past Surgical History Surgical History: appendectomy, , cataract, cholecystectomy, hysterectomy, ANDREINA/BSO - Social History Smoking Status: Former smoker Smokeless Tobacco Status: No Alcohol use: none Drug use: none - Family History Father Living Status: Hx Family Cardiac Disorders: Yes Hx Family Neuromuscular Disorders: Yes Infectious Disease-CN:Meds Albuterol Sulfate [Ventolin Hfa] 2 puff IH Q6H PRN 11/09/16 [History] Furosemide [Lasix] 40 mg PO DAILY 11/09/16 [History] Ipratropium/Albuterol Neb [Duoneb] 3 ml IH Q6HR 11/09/16 [History] Metoprolol [Lopressor] 12.5 mg PO BID 11/09/16 [History] Potassium Chloride [K-Tab ER] 20 meq PO DAILY 11/09/16 [History] Ferrous Sulfate [Iron] 325 mg PO DAILY 12/10/16 [History] Nystatin POWDER [Nystop] 1 appl TP DAILY 12/10/16 [History] Dabrafenib Mesylate [Tafinlar] 50 mg PO DAILY #30 capsule 12/14/16 [Rx] Trametinib Dimethyl Sulfoxide [Mekinist] 1 mg PO DAILY #60 tablet 12/14/16 [Rx] 3 Allergy/AdvReac Type Severity Reaction Status Date / Time Sulfa (Sulfonamide AdvReac Rash Verified 12/10/16 09:02 Antibiotics) Review of systems: Travel: denies recent travel Animal exposure: Denies Denies exposure to sick contacts or small children. She resides in a nursing facility. Diet: denies ingestion of undercooked or raw meats. Dental: denies recent dental procedures - Constitutional Constitutional: Present: fatigue. Absent: chills, fever(s) - EENT Eyes: Absent: change in vision Nose, mouth and throat: Absent: change in voice - Cardiovascular Cardiovascular: Present: palpitations, rapid heart rate. Absent: chest pain - Respiratory Respiratory: Absent: dyspnea, wheezing, chest congestion - Gastrointestinal Gastrointestinal: Absent: abdominal pain, diarrhea, nausea, vomiting - Musculoskeletal Musculoskeletal: Present: back pain, deformity, myalgias - Integumentary Integumentary: Present: bleeding lesions, lesions, skin ulcer, sores, swelling, wounds. Absent: change in hair, change in nails - Neurological Neurological: Present: confusion, weakness. Absent: numbness - Endocrine Endocrine: Absent: polydipsia, polyphagia, polyuria - Hematologic/Lymphatic Hematologic/Lymphatic: Present: easy bleeding Exam - Constitutional Vitals: Temp Pulse Resp BP Pulse Ox 99.3 F 93 18 101/65 95 12/17/16 08:15 12/17/16 08:15 12/17/16 08:15 12/17/16 08:15 12/17/16 08:15 General appearance: cooperative, mild distress, obese, no febrile - Head Head exam: Present: atraumatic, normal inspection, normocephalic - Eye Eye exam: Present: PERRL, conjuntiva pink - ENT ENT exam: Present: mucous membranes moist, normal oropharynx - Neck Neck exam: Present: full ROM, normal inspection. Absent: lymphadenopathy - Respiratory Respiratory exam: Present: CTAB. Absent: decreased breath sounds, respiratory distress, rhonchi - Cardiovascular Cardiovascular exam: Present: RRR, +S1, +S2 - GI/Abdominal GI/Abdominal exam: Present: normal bowel sounds, soft. Absent: guarding, rebound - Extremities Exam Extremities exam: Present: pedal edema (3+ pitting edema) Additional comments: Anasarca all extremities - Back Exam Back exam: Present: paraspinal tenderness Additional comments: Large 10 cm mushroom-like irregular mass extending from right lower midline spine with surrounding purulent discharge foul odor, and easy bleeding, dressing in place - Neurological Exam Neurological exam: Present: alert Additional comments: Follows basic commands - Psychiatric Psychiatric exam: Present: depressed, flat affect - Skin Additional comments: Large 10 cm mushroom-like irregular mass extending from right lower midline spine with surrounding purulent discharge foul odor, and easy bleeding, dressing in place Infectious Disease CN: Results - Labs CBC & Chem 7: 12/17/16 05:25 12/17/16 05:25 Cultures: Cultures 12/15/16 13:00 Wound Culture - Preliminary Back No growth. 12/10/16 09:30 Sputum Culture - Final Sputum Haemophilus influenzae 12/10/16 09:23 Urine Culture - Final Urine,Clean Catch Escherichia coli Serology: Serology 12/16/16 12/14/16 12/10/16 Range/Units 03:20 09:40 15:38 Urine Color (Yellow) Urine Clarity (Clear) Urine pH (5.0-8.0) pH Units Ur Specific [place] (1.010-1.025) Urine Protein (Neg-Trace) mg/dL Urine Glucose (UA) (Normal) mg/dL Urine Ketones (Negative) mg/dL Urine Blood (Negative) Urine Nitrite (Negative) Urine Bilirubin (Negative) Urine Urobilinogen (Normal) mg/dL Ur Leukocyte Esterase (Negative) Urine Microscopic RBC (0-3) per hpf Urine Microscopic WBC (0-3) per hpf Ur Squamous Epith Cells (None-Few) per lpf Urine Bacteria (None-Few) per hpf Hyaline Casts (None-Few) per lpf Ur Culture Indicated? (NO) Urine Osmolality 440 (300-1090) mOsm/kg Urine Sodium < 20.0 mEq/L Stool Occult Blood Negative (Negative) Stl C. diff Tox B Gene Negative (Negative) 12/10/16 Range/Units 09:23 Urine Color Dark Yellow (Yellow) Urine Clarity Turbid A (Clear) Urine pH 5.5 (5.0-8.0) pH Units Ur Specific [place] 1.027 H (1.010-1.025) Urine Protein 100 H (Neg-Trace) mg/dL Urine Glucose (UA) Normal (Normal) mg/dL Urine Ketones Trace H (Negative) mg/dL Urine Blood Small H (Negative) Urine Nitrite Negative (Negative) Urine Bilirubin Small H (Negative) Urine Urobilinogen Normal (Normal) mg/dL Ur Leukocyte Esterase Large H (Negative) Urine Microscopic RBC 5-15 H (0-3) per hpf Urine Microscopic WBC 50-100 H (0-3) per hpf Ur Squamous Epith Cells Moderate H (None-Few) per lpf Urine Bacteria Many H (None-Few) per hpf Hyaline Casts None Seen (None-Few) per lpf Ur Culture Indicated? YES A (NO) Urine Osmolality (300-1090) mOsm/kg Urine Sodium mEq/L Stool Occult Blood (Negative) Stl C. diff Tox B Gene (Negative) Consult Discharge Plan - Plan Referrals: NONE,PCP [Primary Care Provider] - Prescriptions: Dabrafenib Mesylate [Tafinlar] 50 mg PO DAILY #30 capsule Trametinib Dimethyl Sulfoxide [Mekinist] 1 mg PO DAILY #60 tablet - Attending Attestation I examined this patient and my medical decision-making was reviewed with the Resident Physician. I agree with the documented findings, disposition and treatment plan as described except to the extent set forth below. Patient is a 76 years old woman with past medical history mentioned below was admitted on 12/10 for AMS and lethargy and unresponsiveness, we are consulted today for persistent leukocytosis. Patient with large malignant melanoma with mets to the lung and liver diagnosed recently in November of this year that hasnt received any surgery, chemo or radiation was found unresponsive at the [facility]. Brought to [place] where she was intubated and cardioverted. Patient was diagnosed with acute respiratory failure secondary to RLL pneumonia with H influenza, Urinalysis was also done and revealed a UTI with E coli. Patient on physical exam was noted to have infection of melanoma of the skin. Patient also was noted to have a DVT of right superficial femoral vein. Patient was started on empiric vancomycin and zosyn and we were asked to see the patient and make further recommendations. A/P: 1. Severe sepsis 2. Acute respiratory failure secondary to #3 3. RLL with H influenza 4. UTI with E coli 5. AMS 6. Infected melanoma 7. DVT femoral vein 8. A fib with RVR s/p cardioversion 9. Allergies to sulfa Repeat wound cultures now d/c zosyn start rocephin continue vancomycin for now monitor labs and for drug toxicity goal vanc trough 10. Prognosis very poor at best.
[2016-12-17] MEDS ORDERED: *HR* Etomidate 20 MG/10 ML AMPUL IVP ONE (08:54)
[2016-12-17] MEDS ORDERED: *HR* Succinylcholine 200 MG/10 ML VIAL IVP ONE (08:54)
[2016-12-17] MEDS ORDERED: Vancomycin 1 EACH in EMPTY BAG 1 EACH IVPB SCH (09:00)
[2016-12-17] MEDS: Furosemide 40 MG/4 ML VIAL IVP SCH ×2 (09:07→16:38)
--- NOTE | 2016-12-17 10:48 | Internal Med Progress Note ---
Date of Encounter: 12/17/16 Time of Encounter: 10:46 - Assessment and plan (1) RLL pneumonia Current Visit: Yes Status: Acute Assessment and plan: clinically improving saturating well on nasal cannula continue IV abx with Zosyn (Day 03/12) continue to monitor respiratory status Increased Lasix to 40mg IV BID given worsening generalized anasarca-will closely monitor BP Qualifiers: Pneumonia type: due to unspecified organism Qualified Code(s): J18.1 - Lobar pneumonia, unspecified organism (2) 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 Current Visit: No Status: Chronic Assessment and plan: Oncology evaluation appreciated No acute intervention recommended at this time outpatient follow up with primary oncologist recommended (3) Acute respiratory failure Current Visit: Yes Status: Resolved Assessment and plan: resolved currently saturating well on nasal cannula patient's code status has been changed to DNR/DNI during this hospitalization bipap support as needed Qualifiers: Respiratory failure complication: hypoxia and hypercapnia Qualified Code(s) : J96.01 - Acute respiratory failure with hypoxia; J96.02 - Acute respiratory failure with hypercapnia (4) Atrial fibrillation with RVR Current Visit: Yes Status: Acute Assessment and plan: HR controlled with BB anticoagulated with Lovenox (5) Counseling regarding advanced care planning and goals of care Current Visit: Yes Status: Acute Assessment and plan: Palliative care follow up requested (6) DVT (deep venous thrombosis) Current Visit: Yes Status: Acute Assessment and plan: RLE DVT as per oncology, given severity of her malignancy, the best agent for anticoagulation is Lovenox, therefore will continue therapeutic dose of Lovenox and patient will be discharged to [place] with lovenox SQ Qualifiers: DVT location: lower extremity Chronicity: acute Laterality: right Qualified Code(s): I82.401 - Acute embolism and thrombosis of unspecified deep veins of right lower extremity (7) Back wound Current Visit: Yes Status: Acute Assessment and plan: secondary to the melanoma continue daily dressing changes f/u wound cultures continue Vancomcyin IV ID consultation requested given persistent leukocytosis despite abx therapy Qualifiers: Encounter type: initial encounter Laterality: unspecified laterality Qualified Code(s): S21.209A - Unspecified open wound of unspecified back wall of thorax without penetration into thoracic cavity, initial encounter (8) Anasarca Current Visit: Yes Status: Acute Assessment and plan: likely secondary to the underlying illness increased lasix IV to BID, will closely monitor BP (9) Electrolyte abnormality Current Visit: Yes Status: Acute Assessment and plan: Hypokalemia and Hypophosphatemia K and Phos supplemented continue to monitor electrolytes and replace as needed - Subjective Interval history: Patient seen and examined at bedside. More awake and alert from previous day. Follows commands, but remains nonverbal. Denies any pain but appears extremely weak. Palliative care consultation requested as per family's request-patient's son is considering transitioning his mother's care to comfort care, pending Palliative care evaluation. - Constitutional Vitals: Temp Pulse Resp BP Pulse Ox 99.3 F 93 18 101/65 95 12/17/16 08:15 12/17/16 08:15 12/17/16 08:15 12/17/16 08:15 12/17/16 08:15 General appearance: Present: no acute distress (generalized anasarca ), obese - Head Head exam: Present: atraumatic, normocephalic - Eye Eye exam: Present: conjuntiva pink, sclera anicteric - Respiratory Respiratory exam: Absent: respiratory distress, wheezes - Cardiovascular Cardiovascular exam: Present: RRR, +S1, +S2. Absent: diastolic murmur, gallop, rubs, systolic murmur - GI/Abdominal GI/Abdominal exam: Present: normal bowel sounds, soft, no peritoneal signs. Absent: distended, tenderness - Extremities Exam Extremities exam: Present: calf tenderness, pedal edema, warm, radial pulses palpable and symmetrical - Neurological Exam Neurological exam: Present: alert - Skin Additional comments: midline back dressing intact-dressing dry Internal Medicine: Result - Labs CBC & Chem 7: 12/17/16 05:25 12/17/16 05:25 Labs: Short CBC 12/17/16 Range/Units 05:25 WBC 18.3 H (4.3-11.1) K/mcL Hgb 8.1 L (11.5-15.4) g/dL Hct 28.6 L (35.3-44.9) % Plt Count 381 (140-400) K/mcL Neutrophils # 15.3 H (1.6-8.9) K/mcL BMP 12/17/16 05:25 Sodium 142 Potassium 2.9 L Chloride 97 L Carbon Dioxide 35 H BUN 14 Creatinine 0.83 Glucose 113 H Calcium 8.4 L - ABG Interpretation ABG results: ABG ABG pH 7.42 pH Units (7.32-7.45) 12/16/16 20:22 ABG pCO2 66 mmHg (35-45) H 12/16/16 20:22 ABG pO2 80 mmHg (85-104) L 12/16/16 20:22 ABG O2 Saturation 96 % (95-98) 12/16/16 20:22 PT/INR, D-dimer PT 13.5 Seconds (9.4-12.1) H 12/12/16 09:15 Consult Discharge Plan - Plan Referrals: NONE,PCP [Primary Care Provider] - Prescriptions: Dabrafenib Mesylate [Tafinlar] 50 mg PO DAILY #30 capsule Trametinib Dimethyl Sulfoxide [Mekinist] 1 mg PO DAILY #60 tablet
--- NOTE | 2016-12-17 11:08 | Palliative Progress Note ---
Date of Encounter: 12/17/16 Time of Encounter: 11:00 - Assessment and plan (1) Generalized pain Current Visit: Yes Status: Acute (2) Dyspnea Current Visit: Yes Status: Acute Assessment and plan: Required bipap for awhile yesterday. Currently on nasal cannula at 6LPM. Will monitor Qualifiers: Dyspnea type: unspecified Qualified Code(s): R06.00 - Dyspnea, unspecified (3) Counseling regarding advanced care planning and goals of care Current Visit: Yes Status: Acute Assessment and plan: D/W son Arturo via telephone. He is unable to visit today. We discussed his mother's overall poor condition and performance status. He does not feel that she will get strong enough to take chemotherapy. Asked if he would be able to come in for discussion. He desires to discuss with his father, he states his father is in denial re: her condition. Arturo desire to meet tomorrow around 1100 to discuss with pt and the option of focusing more on comfort care and getting hospice involved at the [facility]. Will f/u tomorrow. D/W Dr. Shelby. 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 Current Visit: No Status: Chronic (5) Acute respiratory failure Current Visit: Yes Status: Resolved Qualifiers: Respiratory failure complication: hypoxia and hypercapnia Qualified Code(s) : J96.01 - Acute respiratory failure with hypoxia; J96.02 - Acute respiratory failure with hypercapnia (6) RLL pneumonia Current Visit: Yes Status: Acute Qualifiers: Pneumonia type: due to unspecified organism Qualified Code(s): J18.1 - Lobar pneumonia, unspecified organism - Time Spent With Patient Total time spent is greater than 50% in coordination of care (as documented) at patient's floor/unit and/or counseling patient: 25 - 35 minutes - Subjective Interval history: Patient sleeping on arrival, does awaken easily. Flat affect. [employer] [employer]. Does answer some questions. Chart reviewed over weekend, pt with unresponsive episode yesterday and required bipap for short time. She is back on nasal cannula today. She denies any pain, nausea, anxiety at present. Unable to feed herself this am. - Constitutional Vitals: Abnormal lab results WBC 18.3 K/mcL (4.3-11.1) H 12/17/16 05:25 RBC 3.33 M/mcL (3.82-4.97) L 12/17/16 05:25 Hgb 8.1 g/dL (11.5-15.4) L 12/17/16 05:25 Hct 28.6 % (35.3-44.9) L 12/17/16 05:25 MCH 24.3 pg (28.0-33.3) L 12/17/16 05:25 MCHC 28.3 g/dL (31.6-35.5) L 12/17/16 05:25 RDW 17.2 % (11.5-14.5) H 12/17/16 05:25 Metamyelocytes % 1.0 % (0) H 12/15/16 10:13 Myelocytes % 2.0 % (0) H 12/15/16 10:13 Neutrophils # 15.3 K/mcL (1.6-8.9) H 12/17/16 05:25 Nucleated RBCs/100 WBC 0.1 /100 WBC (0) H 12/16/16 05:51 Clumped Platelets Few (Not Present) A 12/13/16 03:04 Large Platelets Present (Not Present) A 12/11/16 05:20 Polychromasia 1+ (Not Present) A 12/16/16 05:51 Hypochromasia Present (Not Present) A 12/17/16 05:25 Basophilic Stippling 1+ (Not Present) A 12/15/16 05:33 Anisocytosis 1+ (Not Present) A 12/16/16 05:51 Microcytosis Present (Not Present) A 12/16/16 05:51 Macrocytosis Present (Not Present) A 12/16/16 05:51 PT 13.5 Seconds (9.4-12.1) H 12/12/16 09:15 ABG pCO2 66 mmHg (35-45) H 12/16/16 20:22 ABG pO2 80 mmHg (85-104) L 12/16/16 20:22 ABG HCO3 42.8 mEQ/L (21-27) H 12/16/16 20:22 ABG Total CO2 44.8 mEq/L (20-26) H 12/16/16 20:22 ABG Base Excess 16.3 mEq/L (-2.0 to 3.0) H 12/16/16 20:22 Potassium 2.9 mEq/L (3.5-4.5) L 12/17/16 05:25 Chloride 97 mEq/L (98-109) L 12/17/16 05:25 Carbon Dioxide 35 mEq/L (19-29) H 12/17/16 05:25 Glucose 113 mg/dL (70-99) H 12/17/16 05:25 POC Glucose 136 (58-89) H 12/17/16 08:14 Calcium 8.4 mg/dL (8.6-10.8) L 12/17/16 05:25 Magnesium 1.5 mg/dL (1.6-2.6) L 12/17/16 05:25 Alkaline Phosphatase 159 Units/L (38-126) H 12/12/16 09:15 Creatine Kinase < 7 Units/L (29-168) L 12/10/16 00:16 B-Natriuretic Peptide 272 pg/mL (0-100) H 12/10/16 00:16 Serum Total Protein 5.3 g/dL (6.0-8.3) L 12/12/16 09:15 Albumin 1.8 g/dL (3.5-5.0) L 12/12/16 09:15 Albumin/Globulin Ratio 0.5 (1.1-2.2) L 12/12/16 09:15 Urine Clarity Turbid (Clear) A 12/10/16 09:23 Ur Specific [place] 1.027 (1.010-1.025) H 12/10/16 09:23 Urine Protein 100 mg/dL (Neg-Trace) H 12/10/16 09:23 Urine Ketones Trace mg/dL (Negative) H 12/10/16 09:23 Urine Blood Small (Negative) H 12/10/16 09:23 Urine Bilirubin Small (Negative) H 12/10/16 09:23 Ur Leukocyte Esterase Large (Negative) H 12/10/16 09:23 Urine Microscopic RBC 5-15 per hpf (0-3) H 12/10/16 09:23 Urine Microscopic WBC 50-100 per hpf (0-3) H 12/10/16 09:23 Ur Squamous Epith Cells Moderate per lpf (None-Few) H 12/10/16 09:23 Urine Bacteria Many per hpf (None-Few) H 12/10/16 09:23 Ur Culture Indicated? YES (NO) A 12/10/16 09:23 Vancomycin Trough 29.1 mcg/mL (10-20) H* 12/16/16 14:00 General appearance: Present: no acute distress - Respiratory Respiratory exam: Present: decreased breath sounds, CTAB - Cardiovascular Cardiovascular exam: Present: +S1, +S2 - GI/Abdominal GI/Abdominal exam: Present: normal bowel sounds, soft - Extremities Exam Additional comments: 2-3+ bilateral lower extremity edema - Neurological Exam Neurological exam: Present: alert Additional comments: Oriented to name and place. Appears somewhat confused and has difficulty answering some questions. - Skin Skin exam: Present: dry, pallor, warm Palliative Quality Palliative Quality: Screen for Code Status: Yes, Screen for Goals of Care: NA, Screen for Pain: NA, If Pain Regimen Started, Initiate Bowel Regimen: NA, Screen for Nausea/Vomitting: NA - Labs CBC & Chem 7: 12/17/16 05:25 12/17/16 05:25 Labs: Laboratory Results - last 24 hr 12/16/16 12/16/16 12/16/16 08:22 11:26 12:00 WBC RBC Hgb Hct MCV MCH MCHC RDW Plt Count MPV Immature Gran % Seg Neutrophils % Lymphocytes % Monocytes % Eosinophils % Basophils % Neutrophils # Lymphocytes # Monocytes # Eosinophils # Basophils # Platelet Estimate Immature Plt Fraction Hypochromasia ABG pH 7.40 ABG pCO2 63 H ABG pO2 55 L ABG HCO3 39.0 H ABG Total CO2 40.9 H ABG O2 Saturation 88 L ABG Base Excess 12.5 H Liter Flow 3 Blood Gas Modality OXYMASK Inspired O2 Sodium Potassium Chloride Carbon Dioxide BUN Creatinine Est GFR ( Amer) Est GFR (Non-Af Amer) BUN/Creatinine Ratio Glucose POC Glucose 153 H 173 H Calculated Osmolality Calcium Phosphorus Magnesium Vancomycin Trough Random Vancomycin 12/16/16 12/16/16 12/16/16 14:00 17:01 20:22 WBC RBC Hgb Hct MCV MCH MCHC RDW Plt Count MPV Immature Gran % Seg Neutrophils % Lymphocytes % Monocytes % Eosinophils % Basophils % Neutrophils # Lymphocytes # Monocytes # Eosinophils # Basophils # Platelet Estimate Immature Plt Fraction Hypochromasia ABG pH 7.42 ABG pCO2 66 H ABG pO2 80 L ABG HCO3 42.8 H ABG Total CO2 44.8 H ABG O2 Saturation 96 ABG Base Excess 16.3 H Liter Flow 6 Blood Gas Modality OXY MASK Inspired O2 35 Sodium Potassium Chloride Carbon Dioxide BUN Creatinine Est GFR ( Amer) Est GFR (Non-Af Amer) BUN/Creatinine Ratio Glucose POC Glucose 221 H Calculated Osmolality Calcium Phosphorus Magnesium Vancomycin Trough 29.1 H* Random Vancomycin 12/17/16 12/17/16 12/17/16 05:25 05:25 05:25 WBC 18.3 H RBC 3.33 L Hgb 8.1 L Hct 28.6 L MCV 85.9 MCH 24.3 L MCHC 28.3 L RDW 17.2 H Plt Count 381 MPV 9.5 Immature Gran % 2.6 Seg Neutrophils % 83.6 Lymphocytes % 7.8 Monocytes % 4.4 Eosinophils % 1.2 Basophils % 0.4 Neutrophils # 15.3 H Lymphocytes # 1.4 Monocytes # 0.8 Eosinophils # 0.2 Basophils # 0.1 Platelet Estimate Normal Immature Plt Fraction 2.7 Hypochromasia Present A ABG pH ABG pCO2 ABG pO2 ABG HCO3 ABG Total CO2 ABG O2 Saturation ABG Base Excess Liter Flow Blood Gas Modality Inspired O2 Sodium 142 Potassium 2.9 L Chloride 97 L Carbon Dioxide 35 H BUN 14 Creatinine 0.83 Est GFR ( Amer) > 60 Est GFR (Non-Af Amer) > 60 BUN/Creatinine Ratio 17 Glucose 113 H POC Glucose Calculated Osmolality 295 Calcium 8.4 L Phosphorus 2.4 Magnesium 1.5 L Vancomycin Trough Random Vancomycin 27.6 12/17/16 08:14 WBC RBC Hgb Hct MCV MCH MCHC RDW Plt Count MPV Immature Gran % Seg Neutrophils % Lymphocytes % Monocytes % Eosinophils % Basophils % Neutrophils # Lymphocytes # Monocytes # Eosinophils # Basophils # Platelet Estimate Immature Plt Fraction Hypochromasia ABG pH ABG pCO2 ABG pO2 ABG HCO3 ABG Total CO2 ABG O2 Saturation ABG Base Excess Liter Flow Blood Gas Modality Inspired O2 Sodium Potassium Chloride Carbon Dioxide BUN Creatinine Est GFR ( Amer) Est GFR (Non-Af Amer) BUN/Creatinine Ratio Glucose POC Glucose 136 H Calculated Osmolality Calcium Phosphorus Magnesium Vancomycin Trough Random Vancomycin - ABG Interpretation ABG results: ABG ABG pH 7.42 pH Units (7.32-7.45) 12/16/16 20:22 ABG pCO2 66 mmHg (35-45) H 08/20/17 20:22 ABG pO2 80 mmHg (85-104) L 12/16/16 20:22 ABG O2 Saturation 96 % (95-98) 12/16/16 20:22 PT/INR, D-dimer PT 13.5 Seconds (9.4-12.1) H 12/12/16 09:15 Consult Discharge Plan - Plan Referrals: NONE,PCP [Primary Care Provider] - Prescriptions: Dabrafenib Mesylate [Tafinlar] 50 mg PO DAILY #30 capsule Trametinib Dimethyl Sulfoxide [Mekinist] 1 mg PO DAILY #60 tablet
--- NOTE | 2016-12-17 18:58 | Oncology Inp Progress Note ---
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 However, she is weak, malnourished and has ECOG PS 4. It is highly unlikely this patient will ever be able to receive or benefit from therapy. If she were able to rehabilitate, I fear her disease will be far too advanced to consider. In addition it will be difficult for her to rehabilitate with an untreated, aggressive and widespread cancer. Hospice would be most appropriate in this setting. If she does make strides in her recovery, treatment can be reconsidered. Family meeting planned tomorrow, and I will be available for help later in the day if necessary. Oncology: Subj Interval history: Ms Canela is cantankerous today. She is receiving a breathing treatment. No acute pain. But states "my body is sick". Diffuse aches and pains, stable. No fever. Breathign a bit better. Trying to eat more, but doesn't want to be bothered by trying to eat more. Doesn't enjoy doctors asking all these questions. - Constitutional Vitals: Vital Signs Temp Pulse Resp BP Pulse Ox 12/17/16 16:06 16 100 12/17/16 14:35 97.7 F 78 18 90/61 95 12/17/16 11:44 98.0 F 92 16 110/89 100 12/17/16 10:52 20 100 12/17/16 08:15 99.3 F 93 18 101/65 95 12/17/16 05:26 98.5 F 88 20 105/62 94 12/17/16 03:52 16 92 12/16/16 22:02 16 99 12/16/16 19:20 98.5 F 69 16 102/58 100 Intake and Output 12/17/16 12/17/16 12/18/16 08:59 16:59 00:59 Intake Total 240 / 240 440 / 440 360 / 360 Output Total 1500 / 1500 800 / 800 Balance -1260 / -1260 -360 / -360 360 / 360 Intake: IV Fluids 100 / 100 Zosyn 3.375 GM In 100 / 100 Dextrose 5% (Minibag+) 100 ML 100 ML @ 25 mls/hr IVPB Q8H [facility] Rx#: [id number] Oral 240 / 240 340 / 340 360 / 360 Output: Catheter 1500 / 1500 800 / 800 Other: Meal Cream of Wheat for Breakfast 100% water Patient ate mac and cheese and sherbert Percent of Meal Consumed 35% 20% Stool Size Moderate Moderate Stool Consistency liquid loose liquid Stool Color Brown Brown Green # Bowel Movement Diapers 1 Weight 86.7 kg Blood Glucose* 136 Patient Weight 12/18/16 00:59 Weight 86.7 kg - Head Head exam: Present: atraumatic, normal inspection, normocephalic - Eye Eye exam: Present: conjuntiva pink, sclera anicteric - ENT ENT exam: Present: mucous membranes moist, normal exam - Neck Neck exam: Present: normal inspection - Respiratory Respiratory exam: Present: decreased breath sounds, rhonchi - Cardiovascular Cardiovascular exam: Present: RRR - GI/Abdominal GI/Abdominal exam: Present: distended, soft - Extremities Exam Extremities exam: Present: pedal edema (3+) - Neurological Exam Neurological exam: Present: alert, CN II-XII intact, no focal deficits Oncology: Obj Data - Labs CBC & Chem 7: 12/17/16 05:25 12/17/16 05:25 Labs: Laboratory Results - last 24 hr 12/16/16 12/16/16 12/17/16 17:01 20:22 05:25 WBC 18.3 H RBC 3.33 L Hgb 8.1 L Hct 28.6 L MCV 85.9 MCH 24.3 L MCHC 28.3 L RDW 17.2 H Plt Count 381 MPV 9.5 Immature Gran % 2.6 Seg Neutrophils % 83.6 Lymphocytes % 7.8 Monocytes % 4.4 Eosinophils % 1.2 Basophils % 0.4 Neutrophils # 15.3 H Lymphocytes # 1.4 Monocytes # 0.8 Eosinophils # 0.2 Basophils # 0.1 Platelet Estimate Normal Immature Plt Fraction 2.7 Hypochromasia Present A ABG pH 7.42 ABG pCO2 66 H ABG pO2 80 L ABG HCO3 42.8 H ABG Total CO2 44.8 H ABG O2 Saturation 96 ABG Base Excess 16.3 H Liter Flow 6 Blood Gas Modality OXY MASK Inspired O2 35 Sodium Potassium Chloride Carbon Dioxide BUN Creatinine Est GFR ( Amer) Est GFR (Non-Af Amer) BUN/Creatinine Ratio Glucose POC Glucose 221 H Calculated Osmolality Calcium Phosphorus Magnesium Random Vancomycin 12/17/16 12/17/16 12/17/16 05:25 05:25 08:14 WBC RBC Hgb Hct MCV MCH MCHC RDW Plt Count MPV Immature Gran % Seg Neutrophils % Lymphocytes % Monocytes % Eosinophils % Basophils % Neutrophils # Lymphocytes # Monocytes # Eosinophils # Basophils # Platelet Estimate Immature Plt Fraction Hypochromasia ABG pH ABG pCO2 ABG pO2 ABG HCO3 ABG Total CO2 ABG O2 Saturation ABG Base Excess Liter Flow Blood Gas Modality Inspired O2 Sodium 142 Potassium 2.9 L Chloride 97 L Carbon Dioxide 35 H BUN 14 Creatinine 0.83 Est GFR ( Amer) > 60 Est GFR (Non-Af Amer) > 60 BUN/Creatinine Ratio 17 Glucose 113 H POC Glucose 136 H Calculated Osmolality 295 Calcium 8.4 L Phosphorus 2.4 Magnesium 1.5 L Random Vancomycin 27.6 12/17/16 11:52 WBC RBC Hgb Hct MCV MCH MCHC RDW Plt Count MPV Immature Gran % Seg Neutrophils % Lymphocytes % Monocytes % Eosinophils % Basophils % Neutrophils # Lymphocytes # Monocytes # Eosinophils # Basophils # Platelet Estimate Immature Plt Fraction Hypochromasia ABG pH ABG pCO2 ABG pO2 ABG HCO3 ABG Total CO2 ABG O2 Saturation ABG Base Excess Liter Flow Blood Gas Modality Inspired O2 Sodium Potassium Chloride Carbon Dioxide BUN Creatinine Est GFR ( Amer) Est GFR (Non-Af Amer) BUN/Creatinine Ratio Glucose POC Glucose 285 H Calculated Osmolality Calcium Phosphorus Magnesium Random Vancomycin - ABG Interpretation ABG results: ABG ABG pH 7.42 pH Units (7.32-7.45) 12/16/16 20:22 ABG pCO2 66 mmHg (35-45) H 12/16/16 20:22 ABG pO2 80 mmHg (85-104) L 12/16/16 20:22 ABG O2 Saturation 96 % (95-98) 12/16/16 20:22 PT/INR, D-dimer PT 13.5 Seconds (9.4-12.1) H 12/12/16 09:15 Consult Discharge Plan - Plan Referrals: NONE,PCP [Primary Care Provider] - Prescriptions: Dabrafenib Mesylate [Tafinlar] 50 mg PO DAILY #30 capsule Trametinib Dimethyl Sulfoxide [Mekinist] 1 mg PO DAILY #60 tablet
[2016-12-18] MEDS: Ipratropium/Albuterol Neb 3 ML IH SCH ×4 (04:05→22:35)
[2016-12-18 04:58] LABS: Eosinophils % 0.7 %; Hematocrit 25.6 % (35.3-44.9); Mean Corpuscular Volume 84.5 fL (83.0-100.0); Red Blood Count 3.03 M/mcL (3.82-4.97); Red Cell Distribution Width 17.3 % (11.5-14.5)
[2016-12-18 05:00] LABS: Basophils # 0.1 K/mcL (0.0-0.2); Basophils % 0.3 %; Eosinophils # 0.1 K/mcL (0.0-0.6); Hemoglobin 7.3 g/dL (11.5-15.4); Immature Granulocytes % 1.9 % (0-4); Lymphocytes # 1.3 K/mcL (0.6-4.6); Lymphocytes % 7.6 %; Mean Corpuscular HGB Conc 28.5 g/dL (31.6-35.5); Mean Corpuscular Hemoglobin 24.1 pg (28.0-33.3); Mean Platelet Volume 10.2 fL (9.4-12.4); Monocytes # 0.9 K/mcL (0.0-1.3); Monocytes % 5.3 %; Neutrophils # 14.7 K/mcL (1.6-8.9); Platelet Count 329 K/mcL (140-400); Segmented Neutrophils % 84.2 %
[2016-12-18] MEDS: *HR* Enoxaparin 100 MG/ML SYRINGE SQ SCH ×2 (05:04→17:21)
[2016-12-18 05:18] LABS: BUN/Creatinine Ratio 19 (6-26); Blood Urea Nitrogen 16 mg/dL (7-20); Calcium 7.8 mg/dL (8.6-10.8); Chloride 90 mEq/L (98-109); Glucose 188 mg/dL (70-99); Magnesium 1.6 mg/dL (1.6-2.6); Osmolality,Calculated 298 (280-300); Phosphorous 2.3 mg/dL (2.3-4.7); Potassium 2.8 mEq/L (3.5-4.5); Sodium 141 mEq/L (136-145); eGFR For African Americans > 60 (> 60); eGFR For Non-African Americans > 60 (> 60)
[2016-12-18 05:21] LABS: Anisocytosis 1+ (Not Present); Hypochromasia Present (Not Present); Microcytosis Present (Not Present); Platelet Estimate Normal (Normal)
[2016-12-18 05:32] LABS: Carbon Dioxide 45 mEq/L (19-29)
[2016-12-18] MEDS ORDERED: Magnesium Sulfate 2 GM in D5% in Water 100 ML IVPB ONE (06:03)
[2016-12-18] MEDS: Potassium Chloride Elixir 20 MEQ/15 ML UDC PO SCH ×2 (06:28→09:35)
[2016-12-18] MEDS: Furosemide 40 MG/4 ML VIAL IVP SCH ×2 (07:56→17:21)
--- NOTE | 2016-12-18 10:14 | Infectious Disease Progress No ---
Date of Encounter: 12/18/16 Time of Encounter: 10:14 - Assessment and Plan (1) Severe sepsis Current Visit: Yes Status: Acute Febrile with temperature 100.1 F today, heart rate 122, and blood pressure is only 86/63, acute encephalopathy resolved. Blood cultures collected 12/10/16 reveal no growth to date. Wound culture collected 12/15/16 from back wound reveals Corynebacterium species Repeat wound cultures collected 12/17/16 reveals no growth to date. Recommendations: Patient is septic. After palliative care discussion with family today, code status transitioned to DNRCC Continue Vancomycin and Rocephin. Patient has poor prognosis and is at increased risk for clinically worsening despite treatment. (2) Back wound Current Visit: Yes Status: Acute Continue palliative therapy. Qualifiers: Encounter type: initial encounter Laterality: unspecified laterality Qualified Code(s): S21.209A - Unspecified open wound of unspecified back wall of thorax without penetration into thoracic cavity, initial encounter (3) Malignant melanoma of lower back Current Visit: Yes Status: Acute (4) E. coli UTI (urinary tract infection) Current Visit: Yes Status: Acute Urine culture positive for Escherichia coli resistant to Bactrim. (5) RLL pneumonia Current Visit: Yes Status: Acute Sputum culture was positive for Haemophilus influenza Repeat chest x-ray on 12/14/16 revealed persistent interstitial edema with small effusions. Qualifiers: Pneumonia type: due to unspecified organism Qualified Code(s): J18.1 - Lobar pneumonia, unspecified organism (6) DVT (deep venous thrombosis) Current Visit: Yes Status: Acute Lovenox. Management per primary team. Qualifiers: DVT location: lower extremity Affected thrombotic vein of extremity: femoral Chronicity: acute Laterality: right Qualified Code(s): I82.411 - Acute embolism and thrombosis of right femoral vein (7) Leukocytosis Current Visit: Yes Status: Acute Likely secondary to metastatic cancer, pneumonia, and UTI Qualifiers: Leukocytosis type: unspecified Qualified Code(s): D72.829 - Elevated white blood cell count, unspecified (8) Cutaneous candidiasis Current Visit: No Status: Chronic (9) Altered mental status Current Visit: Yes Status: Acute Qualifiers: Altered mental status type: unspecified Qualified Code(s): R41.82 - Altered mental status, unspecified (10) Atrial fibrillation with RVR Current Visit: Yes Status: Acute Resolved - Subjective Interval history: Patient seen and examined. After palliative care discussion with family, code status transitioned to DNRCC. She is febrile with temperature 100.1 F today heart rate 122, and blood pressure is only 86/63. She is very hard of hearing and does not voice any other complaints. Family is not present during exam. Infect Dis PN-Objective Data - Labs CBC & Chem 7: 12/18/16 04:02 12/18/16 04:02 Labs: Laboratory Results - last 24 hr 12/17/16 12/18/16 12/18/16 11:52 04:02 04:02 WBC 17.5 H RBC 3.03 L Hgb 7.3 L Hct 25.6 L MCV 84.5 MCH 24.1 L MCHC 28.5 L RDW 17.3 H Plt Count 329 MPV 10.2 Immature Gran % 1.9 Seg Neutrophils % 84.2 Lymphocytes % 7.6 Monocytes % 5.3 Eosinophils % 0.7 Basophils % 0.3 Neutrophils # 14.7 H Lymphocytes # 1.3 Monocytes # 0.9 Eosinophils # 0.1 Basophils # 0.1 Platelet Estimate Normal Hypochromasia Present A Anisocytosis 1+ A Microcytosis Present A Sodium 141 Potassium 2.8 L Chloride 90 L Carbon Dioxide 45 H* BUN 16 Creatinine 0.86 Est GFR ( Amer) > 60 Est GFR (Non-Af Amer) > 60 BUN/Creatinine Ratio 19 Glucose 188 H POC Glucose 285 H Calculated Osmolality 298 Calcium 7.8 L Phosphorus 2.3 Magnesium 1.6 Vancomycin Trough 12/18/16 04:02 WBC RBC Hgb Hct MCV MCH MCHC RDW Plt Count MPV Immature Gran % Seg Neutrophils % Lymphocytes % Monocytes % Eosinophils % Basophils % Neutrophils # Lymphocytes # Monocytes # Eosinophils # Basophils # Platelet Estimate Hypochromasia Anisocytosis Microcytosis Sodium Potassium Chloride Carbon Dioxide BUN Creatinine Est GFR ( Amer) Est GFR (Non-Af Amer) BUN/Creatinine Ratio Glucose POC Glucose Calculated Osmolality Calcium Phosphorus Magnesium Vancomycin Trough 23.4 H* Cultures: Cultures 12/15/16 13:00 Wound Culture - Final Back Corynebacterium species 12/10/16 09:30 Sputum Culture - Final Sputum Haemophilus influenzae 12/10/16 09:23 Urine Culture - Final Urine,Clean Catch Escherichia coli Serology 0812/14/16 12/10/16 Range/Units 03:20 09:40 15:38 Urine Color (Yellow) Urine Clarity (Clear) Urine pH (5.0-8.0) pH Units Ur Specific [place] (1.010-1.025) Urine Protein (Neg-Trace) mg/dL Urine Glucose (UA) (Normal) mg/dL Urine Ketones (Negative) mg/dL Urine Blood (Negative) Urine Nitrite (Negative) Urine Bilirubin (Negative) Urine Urobilinogen (Normal) mg/dL Ur Leukocyte Esterase (Negative) Urine Microscopic RBC (0-3) per hpf Urine Microscopic WBC (0-3) per hpf Ur Squamous Epith Cells (None-Few) per lpf Urine Bacteria (None-Few) per hpf Hyaline Casts (None-Few) per lpf Ur Culture Indicated? (NO) Urine Osmolality 440 (300-1090) mOsm/kg Urine Sodium < 20.0 mEq/L Stool Occult Blood Negative (Negative) Stl C. diff Tox B Gene Negative (Negative) 12/10/16 Range/Units 09:23 Urine Color Dark Yellow (Yellow) Urine Clarity Turbid A (Clear) Urine pH 5.5 (5.0-8.0) pH Units Ur Specific [place] 1.027 H (1.010-1.025) Urine Protein 100 H (Neg-Trace) mg/dL Urine Glucose (UA) Normal (Normal) mg/dL Urine Ketones Trace H (Negative) mg/dL Urine Blood Small H (Negative) Urine Nitrite Negative (Negative) Urine Bilirubin Small H (Negative) Urine Urobilinogen Normal (Normal) mg/dL Ur Leukocyte Esterase Large H (Negative) Urine Microscopic RBC 5-15 H (0-3) per hpf Urine Microscopic WBC 50-100 H (0-3) per hpf Ur Squamous Epith Cells Moderate H (None-Few) per lpf Urine Bacteria Many H (None-Few) per hpf Hyaline Casts None Seen (None-Few) per lpf Ur Culture Indicated? YES A (NO) Urine Osmolality (300-1090) mOsm/kg Urine Sodium mEq/L Stool Occult Blood (Negative) Stl C. diff Tox B Gene (Negative) Exam - Constitutional Vitals: Temp Pulse Resp BP Pulse Ox 97.4 F L 95 18 95/65 95 12/18/16 07:02 12/18/16 07:02 12/18/16 07:02 12/18/16 07:02 12/18/16 07:02 General appearance: febrile, cooperative, mild distress, obese - Head Head exam: Present: atraumatic, normal inspection, normocephalic - Eye Eye exam: Present: PERRL, conjuntiva pink - ENT ENT exam: Present: mucous membranes moist, normal oropharynx - Neck Neck exam: Present: full ROM, normal inspection - Respiratory Respiratory exam: Present: decreased breath sounds. Absent: respiratory distress - Cardiovascular Cardiovascular exam: Present: +S1, +S2, tachycardia - GI/Abdominal GI/Abdominal exam: Present: normal bowel sounds, soft. Absent: guarding, rebound - Extremities Exam Extremities exam: Present: pedal edema Additional comments: Anasarca - Back Exam Additional comments: Large 10 cm mushroom-like irregular mass extending from right lower midline spine with surrounding purulent discharge foul odor, and easy bleeding, dressing in place - Neurological Exam Neurological exam: Present: alert Additional comments: Follows basic commands - Skin Additional comments: Large 10 cm mushroom-like irregular mass extending from right lower midline spine with surrounding purulent discharge foul odor, and easy bleeding, dressing in place Consult Discharge Plan - Plan Referrals: NONE,PCP [Primary Care Provider] - Prescriptions: Dabrafenib Mesylate [Tafinlar] 50 mg PO DAILY #30 capsule Trametinib Dimethyl Sulfoxide [Mekinist] 1 mg PO DAILY #60 tablet - Attending Attestation I examined this patient and my medical decision-making was reviewed with the Resident Physician. I agree with the documented findings, disposition and treatment plan as described except to the extent set forth below.
--- NOTE | 2016-12-18 13:09 | Palliative - Consult Note ---
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 Current Visit: No Status: Chronic (5) Acute respiratory failure Current Visit: Yes Status: Resolved Qualifiers: Respiratory failure complication: hypoxia and hypercapnia Qualified Code(s) : J96.01 - Acute respiratory failure with hypoxia; J96.02 - Acute respiratory failure with hypercapnia (6) RLL pneumonia Current Visit: Yes Status: Acute Qualifiers: Pneumonia type: due to unspecified organism Qualified Code(s): J18.1 - Lobar pneumonia, unspecified organism Palliative-CN HPI - Data of Consult Requesting Physician: Harleen Leonard MD Primary Care Provider: PCP NONE - Consult Narrative History of present illness: Ms. Canela is a 76 year old female CC: Harleen Leonard MD Past Med Surg Social Fam HX - Past Medical History Medical history: atrial fibrillation, cancer (metastatic melanoma), hypertension Psychiatric history: depression - Past Surgical History Surgical History: appendectomy, , cataract, cholecystectomy, hysterectomy, ANDREINA/BSO - Social History Smoking Status: Former smoker Smokeless Tobacco Status: No Alcohol use: none Drug use: none - Family History Father Living Status: Hx Family Cardiac Disorders: Yes Hx Family Neuromuscular Disorders: Yes Medications and Allergies Albuterol Sulfate [Ventolin Hfa] 2 puff IH Q6H PRN 11/09/16 [History] Furosemide [Lasix] 40 mg PO DAILY 11/09/16 [History] Ipratropium/Albuterol Neb [Duoneb] 3 ml IH Q6HR 11/09/16 [History] Metoprolol [Lopressor] 12.5 mg PO BID 11/09/16 [History] Potassium Chloride [K-Tab ER] 20 meq PO DAILY 11/09/16 [History] Ferrous Sulfate [Iron] 325 mg PO DAILY 12/10/16 [History] Nystatin POWDER [Nystop] 1 appl TP DAILY 12/10/16 [History] Dabrafenib Mesylate [Tafinlar] 50 mg PO DAILY #30 capsule 12/14/16 [Rx] Trametinib Dimethyl Sulfoxide [Mekinist] 1 mg PO DAILY #60 tablet 12/14/16 [Rx] 3 Allergy/AdvReac Type Severity Reaction Status Date / Time Sulfa (Sulfonamide AdvReac Rash Verified 12/10/16 09:02 Antibiotics) Palliative Care-Exam - Constitutional Vitals: Temp Pulse Resp BP Pulse Ox 100.1 F H 122 20 86/63 94 12/18/16 12:21 12/18/16 12:21 12/18/16 12:21 12/18/16 12:21 12/18/16 12:21 General appearance: Present: cooperative, mild distress, obese. Absent: febrile Internal Medicine - CN: Reslt - Labs CBC & Chem 7: 12/18/16 04:02 12/18/16 04:02 Labs: Short CBC 12/18/16 Range/Units 04:02 WBC 17.5 H (4.3-11.1) K/mcL Hgb 7.3 L (11.5-15.4) g/dL Hct 25.6 L (35.3-44.9) % Plt Count 329 (140-400) K/mcL Neutrophils # 14.7 H (1.6-8.9) K/mcL BMP 12/18/16 04:02 Sodium 141 Potassium 2.8 L Chloride 90 L Carbon Dioxide 45 H* BUN 16 Creatinine 0.86 Glucose 188 H Calcium 7.8 L - ABG Interpretation ABG results: ABG ABG pH 7.42 pH Units (7.32-7.45) 12/16/16 20:22 ABG pCO2 66 mmHg (35-45) H 12/16/16 20:22 ABG pO2 80 mmHg (85-104) L 12/16/16 20:22 ABG O2 Saturation 96 % (95-98) 12/16/16 20:22 PT/INR, D-dimer PT 13.5 Seconds (9.4-12.1) H 12/12/16 09:15 Consult Discharge Plan - Plan Referrals: NONE,PCP [Primary Care Provider] - Prescriptions: Dabrafenib Mesylate [Tafinlar] 50 mg PO DAILY #30 capsule Trametinib Dimethyl Sulfoxide [Mekinist] 1 mg PO DAILY #60 tablet Palliative Quality Palliative Quality: Screen for Code Status: Yes, Screen for Goals of Care: NA, Screen for Pain: NA, If Pain Regimen Started, Initiate Bowel Regimen: NA, Screen for Nausea/Vomitting: NA Code Status: 12/18/16 11:57 DNR [Resuscitation Status: Active] [RES] Routine Comment: Resuscitation Status: DNR-Comfort Care
--- NOTE | 2016-12-18 13:12 | Palliative Progress Note ---
Date of Encounter: 12/18/16 Time of Encounter: 11:30 - Assessment and plan (1) Generalized pain Current Visit: Yes Status: Acute (2) Dyspnea Current Visit: Yes Status: Acute Assessment and plan: She continues with oxygen, has bipap at bedside for PRN use. Continues with IV atb for pneumonia. Qualifiers: Dyspnea type: unspecified Qualified Code(s): R06.00 - Dyspnea, unspecified (3) Counseling regarding advanced care planning and goals of care Current Visit: Yes Status: Acute Assessment and plan: Meeting with pt//and son Arturo re: goals of care. Discussed her poor performance status and need for ongoing rehabilitation before she could begin any cancer treatment. Son does not believe that she will get strong enough, and opts for transition to comfort care and hospice. is agreeable. D/ W pt as she is quite [place] and have to get close proximity to get her to understand. Patient did acknowledge on her own that she is too frail at this point to have chemotherapy. She is agreeable to return to [facility] and have hospice get involved. Did discuss that if she would significantly improve, they could always do return visit to cancer center for re-evaluation. Code status transitioned to DNRCC. D/W Dr. 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 Current Visit: No Status: Chronic (5) Acute respiratory failure Current Visit: Yes Status: Resolved Qualifiers: Respiratory failure complication: hypoxia and hypercapnia Qualified Code(s) : J96.01 - Acute respiratory failure with hypoxia; J96.02 - Acute respiratory failure with hypercapnia (6) RLL pneumonia Current Visit: Yes Status: Acute Qualifiers: Pneumonia type: due to unspecified organism Qualified Code(s): J18.1 - Lobar pneumonia, unspecified organism - Time Spent With Patient Total time spent is greater than 50% in coordination of care (as documented) at patient's floor/unit and/or counseling patient: 25 - 35 minutes - Subjective Interval history: Patient sleeping on arrival, does awaken easily. Flat affect. [place]. and son at bedside. Oncology progress notes reviewed and greatly appreciated. Patient states "feels bad", but does not elaborate. Denies any pain or discomfort. Denies shortness of breath. - Constitutional Vitals: Abnormal lab results WBC 17.5 K/mcL (4.3-11.1) H 12/18/16 04:02 RBC 3.03 M/mcL (3.82-4.97) L 12/18/16 04:02 Hgb 7.3 g/dL (11.5-15.4) L 12/18/16 04:02 Hct 25.6 % (35.3-44.9) L 12/18/16 04:02 MCH 24.1 pg (28.0-33.3) L 12/18/16 04:02 MCHC 28.5 g/dL (31.6-35.5) L 12/18/16 04:02 RDW 17.3 % (11.5-14.5) H 12/18/16 04:02 Metamyelocytes % 1.0 % (0) H 12/15/16 10:13 Myelocytes % 2.0 % (0) H 12/15/16 10:13 Neutrophils # 14.7 K/mcL (1.6-8.9) H 12/18/16 04:02 Nucleated RBCs/100 WBC 0.1 /100 WBC (0) H 12/16/16 05:51 Clumped Platelets Few (Not Present) A 12/13/16 03:04 Large Platelets Present (Not Present) A 12/11/16 05:20 Polychromasia 1+ (Not Present) A 12/16/16 05:51 Hypochromasia Present (Not Present) A 12/18/16 04:02 Basophilic Stippling 1+ (Not Present) A 12/15/16 05:33 Anisocytosis 1+ (Not Present) A 12/18/16 04:02 Microcytosis Present (Not Present) A 12/18/16 04:02 Macrocytosis Present (Not Present) A 12/16/16 05:51 PT 13.5 Seconds (9.4-12.1) H 12/12/16 09:15 ABG pCO2 66 mmHg (35-45) H 12/16/16 20:22 ABG pO2 80 mmHg (85-104) L 12/16/16 20:22 ABG HCO3 42.8 mEQ/L (21-27) H 12/16/16 20:22 ABG Total CO2 44.8 mEq/L (20-26) H 12/16/16 20:22 ABG Base Excess 16.3 mEq/L (-2.0 to 3.0) H 12/16/16 20:22 Potassium 2.8 mEq/L (3.5-4.5) L 12/18/16 04:02 Chloride 90 mEq/L (98-109) L 12/18/16 04:02 Carbon Dioxide 45 mEq/L (19-29) H* 12/18/16 04:02 Glucose 188 mg/dL (70-99) H 12/18/16 04:02 POC Glucose 285 (58-89) H 12/17/16 11:52 Calcium 7.8 mg/dL (8.6-10.8) L 12/18/16 04:02 Alkaline Phosphatase 159 Units/L (38-126) H 12/12/16 09:15 Creatine Kinase < 7 Units/L (29-168) L 12/10/16 00:16 B-Natriuretic Peptide 272 pg/mL (0-100) H 12/10/16 00:16 Serum Total Protein 5.3 g/dL (6.0-8.3) L 12/12/16 09:15 Albumin 1.8 g/dL (3.5-5.0) L 12/12/16 09:15 Albumin/Globulin Ratio 0.5 (1.1-2.2) L 12/12/16 09:15 Urine Clarity Turbid (Clear) A 12/10/16 09:23 Ur Specific [place] 1.027 (1.010-1.025) H 12/10/16 09:23 Urine Protein 100 mg/dL (Neg-Trace) H 12/10/16 09:23 Urine Ketones Trace mg/dL (Negative) H 12/10/16 09:23 Urine Blood Small (Negative) H 12/10/16 09:23 Urine Bilirubin Small (Negative) H 12/10/16 09:23 Ur Leukocyte Esterase Large (Negative) H 12/10/16 09:23 Urine Microscopic RBC 5-15 per hpf (0-3) H 12/10/16 09:23 Urine Microscopic WBC 50-100 per hpf (0-3) H 12/10/16 09:23 Ur Squamous Epith Cells Moderate per lpf (None-Few) H 12/10/16 09:23 Urine Bacteria Many per hpf (None-Few) H 12/10/16 09:23 Ur Culture Indicated? YES (NO) A 12/10/16 09:23 Vancomycin Trough 23.4 mcg/mL (10-20) H* 12/18/16 04:02 General appearance: Present: morbidly obese, no acute distress - Respiratory Respiratory exam: Present: decreased breath sounds, CTAB - Cardiovascular Cardiovascular exam: Present: +S1, +S2 - GI/Abdominal GI/Abdominal exam: Present: normal bowel sounds, soft - Additional comments: Roper with clear yellow urine - Extremities Exam Additional comments: generalized edema to all extremities - Neurological Exam Neurological exam: Present: alert Additional comments: generalized weakness - Skin Skin exam: Present: dry, warm Palliative Quality Palliative Quality: Screen for Code Status: Yes, Screen for Goals of Care: NA, Screen for Pain: NA, If Pain Regimen Started, Initiate Bowel Regimen: NA, Screen for Nausea/Vomitting: NA Code Status: 12/18/16 11:57 DNR [Resuscitation Status: Active] [RES] Routine Comment: Resuscitation Status: DNR-Comfort Care - Labs CBC & Chem 7: 12/18/16 04:02 12/18/16 04:02 Labs: Laboratory Results - last 24 hr 12/18/16 12/18/16 12/18/16 04:02 04:02 04:02 WBC 17.5 H RBC 3.03 L Hgb 7.3 L Hct 25.6 L MCV 84.5 MCH 24.1 L MCHC 28.5 L RDW 17.3 H Plt Count 329 MPV 10.2 Immature Gran % 1.9 Seg Neutrophils % 84.2 Lymphocytes % 7.6 Monocytes % 5.3 Eosinophils % 0.7 Basophils % 0.3 Neutrophils # 14.7 H Lymphocytes # 1.3 Monocytes # 0.9 Eosinophils # 0.1 Basophils # 0.1 Platelet Estimate Normal Hypochromasia Present A Anisocytosis 1+ A Microcytosis Present A Sodium 141 Potassium 2.8 L Chloride 90 L Carbon Dioxide 45 H* BUN 16 Creatinine 0.86 Est GFR ( Amer) > 60 Est GFR (Non-Af Amer) > 60 BUN/Creatinine Ratio 19 Glucose 188 H Calculated Osmolality 298 Calcium 7.8 L Phosphorus 2.3 Magnesium 1.6 Vancomycin Trough 23.4 H* - ABG Interpretation ABG results: ABG ABG pH 7.42 pH Units (7.32-7.45) 12/16/16 20:22 ABG pCO2 66 mmHg (35-45) H 12/16/16 20:22 ABG pO2 80 mmHg (85-104) L 12/16/16 20:22 ABG O2 Saturation 96 % (95-98) 12/16/16 20:22 PT/INR, D-dimer PT 13.5 Seconds (9.4-12.1) H 12/12/16 09:15 Consult Discharge Plan - Plan Referrals: NONE,PCP [Primary Care Provider] - Prescriptions: Dabrafenib Mesylate [Tafinlar] 50 mg PO DAILY #30 capsule Trametinib Dimethyl Sulfoxide [Mekinist] 1 mg PO DAILY #60 tablet
--- NOTE | 2016-12-18 15:41 | Internal Med Progress Note ---
Date of Encounter: 12/18/16 Time of Encounter: 13:45 - Assessment and plan (1) Severe sepsis Current Visit: Yes Status: Acute Assessment and plan: Patient continued to have low-grade fever. Temperature was 100.1 this afternoon. Tachycardic with A. fib. Leukocytosis is improving. Infectious disease following. Currently receiving vancomycin and ceftriaxone. High risk for complications. Poor overall prognosis. (2) RLL pneumonia Current Visit: Yes Status: Acute Assessment and plan: Clinically getting better with regards to her respiratory status. On 2 L nasal cannula. Blood cultures have been negative. Sputum culture positive for Haemophilus influenzae. Continue current antibiotics. 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 Palliative care consulted. After discussing with family members, patient has been made DNR comfort care and commended hospice which the family is agreeable to. (4) Anasarca Current Visit: Yes Status: Acute Assessment and plan: Receiving IV Lasix. Urine output is improving with patient still has significant positive fluid balance. (5) Atrial fibrillation with RVR Current Visit: Yes Status: Acute (6) Back wound Current Visit: Yes Status: Acute Assessment and plan: Patient in RVR today. Did not receive Lopressor this morning due to low blood pressure. Patient is currently DNR comfort care per family wishes. We will resume Lopressor when blood pressure is more tolerable. Discontinue telemetry due to DNR status. Qualifiers: Encounter type: initial encounter Laterality: unspecified laterality Qualified Code(s): S21.209A - Unspecified open wound of unspecified back wall of thorax without penetration into thoracic cavity, initial encounter (7) DVT (deep venous thrombosis) Current Visit: Yes Status: Acute Assessment and plan: Continue Lovenox Qualifiers: DVT location: lower extremity Affected thrombotic vein of extremity: femoral Chronicity: acute Laterality: right Qualified Code(s): I82.411 - Acute embolism and thrombosis of right femoral vein (8) Electrolyte abnormality Current Visit: Yes Status: Acute Assessment and plan: Severe hypokalemia. We will replace orally and intravenously. - Subjective Interval history: Patient is awake and alert. Feels weak and tired. No shortness of breath. No chest pain reported. Tolerating diet well. Has now been placed on DNR comfort care per family wishes. - Constitutional Vitals: Temp Pulse Resp BP Pulse Ox 98.7 F 133 18 129/82 96 12/18/16 13:38 12/18/16 13:38 12/18/16 13:38 12/18/16 13:38 12/18/16 13:38 General appearance: Present: A&O X 2, obese, answers questions appropriately - Neck Neck exam general surgery: Present: supple, trachea midline. Absent: lymphadenopathy - Respiratory Respiratory exam: Present: CTAB. Absent: accessory muscle use, rales, rhonchi, wheezes - Cardiovascular Cardiovascular exam: Present: RRR, +S1, +S2. Absent: diastolic murmur, gallop, rubs, systolic murmur - GI/Abdominal GI/Abdominal exam: Present: normal bowel sounds, soft, no peritoneal signs. Absent: distended, tenderness - Extremities Exam Extremities exam: Present: pedal edema (Generalized anasarca), warm, radial pulses palpable and symmetrical. Absent: calf tenderness, cyanotic - Neurological Exam Neurological exam: Present: alert, oriented X3, no focal deficits. Absent: facial droop, speech deficit Internal Medicine: Result - Labs CBC & Chem 7: 12/18/16 04:02 12/18/16 04:02 Labs: Short CBC 12/18/16 Range/Units 04:02 WBC 17.5 H (4.3-11.1) K/mcL Hgb 7.3 L (11.5-15.4) g/dL Hct 25.6 L (35.3-44.9) % Plt Count 329 (140-400) K/mcL Neutrophils # 14.7 H (1.6-8.9) K/mcL BMP 12/18/16 04:02 Sodium 141 Potassium 2.8 L Chloride 90 L Carbon Dioxide 45 H* BUN 16 Creatinine 0.86 Glucose 188 H Calcium 7.8 L - ABG Interpretation ABG results: ABG ABG pH 7.42 pH Units (7.32-7.45) 12/16/16 20:22 ABG pCO2 66 mmHg (35-45) H 12/16/16 20:22 ABG pO2 80 mmHg (85-104) L 12/16/16 20:22 ABG O2 Saturation 96 % (95-98) 12/16/16 20:22 PT/INR, D-dimer PT 13.5 Seconds (9.4-12.1) H 12/12/16 09:15 Consult Discharge Plan - Plan Referrals: NONE,PCP [Primary Care Provider] - Prescriptions: Dabrafenib Mesylate [Tafinlar] 50 mg PO DAILY #30 capsule Trametinib Dimethyl Sulfoxide [Mekinist] 1 mg PO DAILY #60 tablet
[2016-12-19] MEDS: Ipratropium/Albuterol Neb 3 ML IH SCH ×2 (03:37→09:44)
[2016-12-19 04:44] LABS: Eosinophils % 0.7 %; Mean Corpuscular HGB Conc 28.1 g/dL (31.6-35.5); Mean Platelet Volume 9.9 fL (9.4-12.4)
[2016-12-19 04:46] LABS: Basophils % 0.2 %; Eosinophils # 0.1 K/mcL (0.0-0.6); Hemoglobin 7.3 g/dL (11.5-15.4); Immature Granulocytes % 1.6 % (0-4); Lymphocytes # 1.9 K/mcL (0.6-4.6); Lymphocytes % 10.6 %; Mean Corpuscular Volume 85.5 fL (83.0-100.0); Monocytes % 5.6 %; Neutrophils # 14.4 K/mcL (1.6-8.9); Platelet Count 319 K/mcL (140-400); Red Blood Count 3.04 M/mcL (3.82-4.97); Red Cell Distribution Width 17.6 % (11.5-14.5); Segmented Neutrophils % 81.3 %
[2016-12-19 04:57] LABS: BUN/Creatinine Ratio 19 (6-26); Blood Urea Nitrogen 16 mg/dL (7-20); Calcium 8.4 mg/dL (8.6-10.8); Chloride 90 mEq/L (98-109); Glucose 197 mg/dL (70-99); Osmolality,Calculated 297 (280-300); Sodium 140 mEq/L (136-145); eGFR For African Americans > 60 (> 60); eGFR For Non-African Americans > 60 (> 60)
[2016-12-19 05:05] LABS: Carbon Dioxide 41 mEq/L (19-29)
[2016-12-19 05:20] LABS: Anisocytosis 1+ (Not Present); Hypochromasia Present (Not Present)
[2016-12-19 05:21] LABS: Platelet Estimate Normal (Normal)
[2016-12-19] MEDS: *HR* Enoxaparin 100 MG/ML SYRINGE SQ SCH (06:34)
[2016-12-19] MEDS: Furosemide 40 MG/4 ML VIAL IVP SCH (07:53)
--- NOTE | 2016-12-19 11:23 | Event Note ---
Date of Encounter: 12/19/16 Time of Encounter: 11:00 Spoke with son Arturo via telephone. I had forgotten to give him copy of DNR state form completed yesterday, so I instructed him to ask [employer] for a copy if he needs it. He stated [facility] hospice nurse just left his house and paperwork was completed for hospice enrollment. [facility] setting up transport for this afternoon. D/W Dr. Leonard.
--- NOTE | 2016-12-19 11:30 | Event Note ---
Date of Encounter: 12/19/16 Time of Encounter: 11:29 Case discussed with WILILS Solomon, with Palliative Care Team. Patient is being discharged to [facility] later today with hospice. No plans to continue antibiotic therapy once discharged. Will sign off. Please re-consult if needed.
[2016-12-19] MEDS ORDERED: Loperamide 1 MG/5 ML UDC PO PRN (11:32)
[2016-12-19] MEDS ORDERED: Lactobacillus 1 EACH CAP.SPRINK PO SCH (11:45)
--- NOTE | 2016-12-19 12:03 | Discharge Summary ---
Date of Encounter: 12/19/16 Time of Encounter: 09:40 - Discharge Diagnosis (1) Severe sepsis Priority: Primary Status: Acute (2) RLL pneumonia Priority: Secondary Status: Acute Qualifiers: Pneumonia type: due to unspecified organism Qualified Code(s): J18.1 - Lobar pneumonia, unspecified organism (3) 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 Priority: Secondary Status: Chronic (4) Anasarca Priority: Secondary Status: Chronic (5) Atrial fibrillation with RVR Priority: Secondary Status: Acute (6) Back wound Priority: Secondary Status: Acute Qualifiers: Encounter type: initial encounter Laterality: unspecified laterality Qualified Code(s): S21.209A - Unspecified open wound of unspecified back wall of thorax without penetration into thoracic cavity, initial encounter (7) DVT (deep venous thrombosis) Priority: Secondary Status: Acute Qualifiers: DVT location: lower extremity Affected thrombotic vein of extremity: femoral Chronicity: acute Laterality: right Qualified Code(s): I82.411 - Acute embolism and thrombosis of right femoral vein (8) Electrolyte abnormality Priority: Secondary Status: Acute - Discharge Medications Home Medications: Albuterol Sulfate [Ventolin Hfa] 2 puff IH Q6H PRN 11/09/16 [History] Furosemide [Lasix] 40 mg PO DAILY 11/09/16 [History] Ipratropium/Albuterol Neb [Duoneb] 3 ml IH Q6HR 11/09/16 [History] Metoprolol [Lopressor] 12.5 mg PO BID 11/09/16 [History] Potassium Chloride [K-Tab ER] 20 meq PO DAILY 11/09/16 [History] Ferrous Sulfate [Iron] 325 mg PO DAILY 12/10/16 [History] Nystatin POWDER [Nystop] 1 appl TP DAILY 12/10/16 [History] Enoxaparin [Lovenox] 90 mg SQ Q12HCO 12/19/16 [Rx] Lactobacillus [Culturelle] 1 each PO BID 12/19/16 [Rx] Loperamide [Imodium] 1 mg PO QID PRN 12/19/16 [Rx] Allergies/Adverse Reactions: 3 Allergy/AdvReac Type Severity Reaction Status Date / Time Sulfa (Sulfonamide AdvReac Rash Verified 12/10/16 09:02 Antibiotics) Date of admission: 12/10/16 03:49 Primary care physician: PCP NONE Consults: 12/10/16 09:42 Consult to Surgery [CONS] Routine Consulting Provider: [facility] Reason for Consult: Melanoma of the back Time Notified: 09:43 Call Completed: Yes 12/10/16 10:17 Consult to Radiation Oncology [Consult to Oncology Radiation] [CONS] Routine Consulting Provider: [facility] Reason for Consult: necrotic draining back melanoma Time Notified: 10:18 Call Completed: Yes 12/10/16 11:28 Consult to Palliative Care [CONS] Routine Comment: Consulting Provider: Palliative Care [facility] Reason for Consult: Malignancy Time Notified: 11:28 Call Completed: Yes 12/14/16 11:50 Consult to Physical Therapy [CONS] Stat Comment: Evaluate, develop and implement POC Reason for Consult: DC planning 12/14/16 11:53 Consult to Occupational Therapy [CONS] Stat Comment: Evaluate, develop and implement POC Reason for Consult: DC planning 12/16/16 11:24 Consult to Infectious Diseases [CONS] Routine Consulting Provider: Infectious [facility] [place] Reason for Consult: persistent leukocytosis Call Completed: Yes 12/16/16 12:18 Consult to Palliative Care [CONS] Stat Comment: Consulting Provider: Palliative Care [facility] Reason for Consult: hospice care Call Completed: Yes Discharging clinician: Harleen Leonard Anticipated date of discharge: 12/19/16 - Patient Status Disposition: Hospice - Medical Facility Condition: Serious Functional capacity at discharge: bed bound Overall status at discharge: patient is not back to baseline - Discharge Instructions Instructions: Sepsis (DC) Follow Up With: NONE,PCP [Primary Care Provider] - - Diet and Activity Activity: wear oxygen at all times Diet: advance to your usual diet Hospital course: Ms. Canela is a 76 year old female patient with a history of metastatic melanoma , atrial fibrillation, hypertension who was initially admitted to the ICU with decreased responsiveness and respiratory failure. She was intubated in the ER and then treated for acute respiratory failure with IV antibiotics for possible underlying pneumonia involving the right lower lobe. She also required pressors to support her blood pressure due to hypotension. Patient had a large wound on her back from her malignant melanoma for which surgical evaluation was requested. Patient was evaluated by surgery and recommended no surgical debridement at that time. For the patient's malignant melanoma, oncology was consulted for their recommendations. Patient was positive for BRAF mutation and so was recommended targeted therapy for this as outpatient. She was eventually weaned off the ventilator and extubated on 12/11/16. Patient was then monitored in ICU for 2 more days and then transferred to the floor for further care. Palliative care was also consulted to discuss care options for the patient given her malignant tumor. Patient was also found to have deep vein thrombosis involving the right superficial femoral vein. Patient had been receiving Lovenox for prophylaxis during her stay here. Oncology recommended that the patient continue anticoagulation with full strength Lovenox due to her tumor. Overall, patient's condition did not improve much despite treatment measures and she persisted to have significant leukocytosis despite aggressive antibiotic therapy. Culture was positive for Escherichia coli that was pansensitive and a sputum culture was positive for Haemophilus influenza. Wound culture of her back grew Corynebacterium species which is likely skin contaminant. On 12/16/16, patient was found to be non-arousable and a rapid response was called. Patient's CODE STATUS had been changed to DNR CC arrest after discussion with palliative care. Palliative care again evaluated the patient and discussed with family members about prognosis and goals of care. Oncology continued to follow the patient. Although patient's respiratory status improved, given her slow response to treatment, oncology recommended hospice she would likely not be able to tolerate or benefit from outpatient chemotherapy. Palliative care discussed this with the patient and family and agreed to place patient in hospice given her likely terminal condition with metastatic melanoma and poor response to treatment for underlying pneumonia. Patient has now been accepted to hospice at [facility] and will be discharged there today. Infectious disease s does not recommend any further antibiotics at this time as patient will be on hospice and she has received intravenous antibiotics consistently since hospitalization on 12/10/16. Recent did develop diarrhea during her stay here and the stool was sent for testing for C. difficile and was found to be negative. She will therefore be placed on loperamide and lactobacillus to help with her symptoms of diarrhea. Patient's current CODE STATUS is DNR/comfort care. Patient will be discharged on Lovenox to continue treating her DVT and as long as patient is unable to tolerate it. - Time Spent with Patient Total time spent providing and/or coordinating discharge services: Greater than 30 minutes (40 min) - Constitutional Vitals: Temp Pulse Resp BP Pulse Ox 97.5 F L 97 18 92/59 100 12/19/16 11:05 12/19/16 11:05 12/19/16 11:05 12/19/16 11:05 12/19/16 11:05 General appearance: Present: A&O X 2, obese, answers questions appropriately - Neck Neck exam general surgery: Present: supple, trachea midline. Absent: lymphadenopathy - Respiratory Respiratory exam: Present: CTAB. Absent: accessory muscle use, rales, rhonchi, wheezes - Cardiovascular Cardiovascular exam: Present: RRR, +S1, +S2. Absent: diastolic murmur, gallop, rubs, systolic murmur - GI/Abdominal GI/Abdominal exam: Present: normal bowel sounds, soft, no peritoneal signs. Absent: distended, tenderness - Extremities Exam Extremities exam: Present: pedal edema, warm, radial pulses palpable and symmetrical. Absent: calf tenderness, cyanotic - Skin Skin exam: Present: dry, intact
--- NOTE | 2016-12-19 12:09 | Physician Discharge Referral ---
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 Priority: Secondary Status: Chronic (4) Anasarca Priority: Secondary Status: Chronic (5) Atrial fibrillation with RVR Priority: Secondary Status: Acute (6) Back wound Priority: Secondary Status: Acute (7) DVT (deep venous thrombosis) Priority: Secondary Status: Acute (8) Electrolyte abnormality Priority: Secondary Status: Acute Prognosis: Poor Aware of Diagnosis: Patient, Family Aware of Prognosis: Patient, Family - Transfer Medications Home Medications: Albuterol Sulfate [Ventolin Hfa] 2 puff IH Q6H PRN 11/09/16 [History] Furosemide [Lasix] 40 mg PO DAILY 11/09/16 [History] Ipratropium/Albuterol Neb [Duoneb] 3 ml IH Q6HR 11/09/16 [History] Metoprolol [Lopressor] 12.5 mg PO BID 11/09/16 [History] Potassium Chloride [K-Tab ER] 20 meq PO DAILY 11/09/16 [History] Ferrous Sulfate [Iron] 325 mg PO DAILY 12/10/16 [History] Nystatin POWDER [Nystop] 1 appl TP DAILY 12/10/16 [History] Enoxaparin [Lovenox] 90 mg SQ Q12HCO 12/19/16 [Rx] Lactobacillus [Culturelle] 1 each PO BID 12/19/16 [Rx] Loperamide [Imodium] 1 mg PO QID PRN 12/19/16 [Rx] Allergies/Adverse Reactions: 3 Allergy/AdvReac Type Severity Reaction Status Date / Time Sulfa (Sulfonamide AdvReac Rash Verified 12/10/16 09:02 Antibiotics) - Respiratory Orders Oxygen / L per min (as need to keep patient comfortable) Smoking Cessation: Smoking cessation has been advised. For more information, call the [employer] Tobacco Quit Line at 8-469-BMVK-NOW. - Advance Directives Code Status: DNR-Comfort Care - Rehabiliation Orders Rehab Potential: Poor - Diet Orders Mechanical Soft CERTIFICATION: I certify that the transfer of the above named patient to an Extended Care Facility is necessary for the continuing treatment of the diagnosis listed. The above information is true and accurate reflection of patient's current condition. Confidential - Redisclosure prohibited without a patient's written consent.
[2016-12-19 14:19] VITALS: BP 94/57
[2016-12-19] MEDS ORDERED: Aminoglycoside Consult 1 EACH MC ONE (14:49)
== END 2016-12-19 14:50 | disposition hospice, inpatient (51) | DRG 871 ==
LOC: EMEROO 23:53 → ICNU 12-10 03:49 → SUATTDRO 12-10 03:49 → 3ANU 12-13 12:32
PROVIDERS: ADMIT Internal Medicine; ATTEND Internal Medicine